=== PATIENT | female | born 1950 | race Caucasian/White ===

== ENCOUNTER 2021-11-03 07:21 | Outpatient (REF) | payer MEDICARE, SELFPAY ==
[2021-11-03 07:37] LABS: MANUAL DIFF FLAG NO
[2021-11-03 08:16] LABS: Basophils Absolute Auto 0.1 X10*3/uL (0.0-0.2); Eosinophils Absolute Auto 0.2 X10*3/uL (0.0-0.4); Eosinophils Percent Auto 2.9 % (0-4); Hematocrit 49.4 % (37.0-47.0); Hemoglobin 16.8 g/dl (12.0-16.0); Imm Gran Abs Auto 0.01 X10*3/uL (0.00-0.03); Imm Gran Pct Auto 0.2 % (0.0-0.4); Lymphocytes Absolute Auto 1.9 X10*3/uL (1.2-4.9); Lymphocytes Percent Auto 31.6 % (20-40); Mean Corpuscular Hemoglobin 31.2 pg (27.0-33.0); Mean Corpuscular Volume 91.8 fL (80.0-98.0); Mean Platelet Volume 12.2 fL (9.4-12.3); Monocytes Absolute Auto 0.6 X10*3/uL (0.1-1.2); Monocytes Percent Auto 9.2 % (2-11); Neutrophils Absolute Auto 3.3 x10*3/uL (2.0-8.3); Neutrophils Percent Auto 55.1 % (45-73); Platelet Count 200 X10*3/uL (160-400); Red Blood Count 5.38 X10*6/uL (4.20-5.50)
[2021-11-03 08:44] LABS: Alanine Aminotransferase 26 U/L (0-31); Albumin Level 4.4 g/dL (3.5-5.0); Alkaline Phosphatase 53 U/L (39-117); Anion Gap 15 (12-20); Aspartate Amino Transferase 30 U/L (5-31); Bilirubin Total 0.9 mg/dL (0.0-1.0); Blood Urea Nitrogen 21 mg/dL (9-16); Calcium 9.9 mg/dL (8.4-10.2); Carbon Dioxide 34 mmol/L (22-29); Chloride 95 mmol/L (96-108); Cholesterol 217 mg/dL; Estimated Glomerular Filt Rate 43; Glucose Random 95 mg/dL (60-115); HDL Cholesterol 60 mg/dL; LDL Cholesterol Calculated 139 mg/dl; Potassium 3.8 mmol/L (3.3-5.1); Sodium 140 mmol/L (135-145); Total Protein 7.4 g/dL (6.5-8.0); Triglycerides 90 mg/dL
[2021-11-03 09:06] LABS: Vitamin D 25-OH Total 21.5 ng/mL (>30)
== END 2021-11-03 07:22 | disposition home or self-care (01) ==
LOC: HO.LAB 07:21
PROVIDERS: PCP Internal Medicine; Visit Provider Internal Medicine
DX: I48.91 Unspecified atrial fibrillation (principal); I12.9 Hypertensive chronic kidney disease with stage 1 through stage 4 chronic kidney disease, or unspecified chronic kidney disease; N18.9 Chronic kidney disease, unspecified; J44.9 Chronic obstructive pulmonary disease, unspecified; I73.9 Peripheral vascular disease, unspecified
CPT/HCPCS: 36415; 80053; 80061; 82306; 85025

== ENCOUNTER 2021-11-09 11:05 | Outpatient (REF) | payer MEDICARE, SELFPAY ==
--- NOTE | ~2021-11-09 | US_ITS ---
EXAMINATION: NONINVASIVE ASSESSMENT OF THE ARTERIES OF BOTH LOWER EXTREMITIES INCLUDING BILATERAL LOWER EXTREMITY DUPLEX. CLINICAL INFORMATION: Smoking history COMPARISON: None TECHNIQUE: duplex Doppler techniques with wave form analysis and measurement of velocities in the common femoral, profunda femoral, superficial femoral, popliteal, tibial and peroneal arteries. The study was performed only at rest. FINDINGS: RIGHT LEG: Common femoral artery: 263 cm/s, Multiphasic Profunda femoris artery: 66 cm/s, Multiphasic Superficial femoral artery (proximal): 61 cm/s, Multiphasic Superficial femoral artery (mid): 156 cm/s, Multiphasic Superficial femoral artery (distal): 116 cm/s, Multiphasic Proximal Popliteal artery: 90 cm/s, Multiphasic Mid posterior tibial artery: 68 cm/s, Multiphasic LEFT LEG: Common femoral artery: 138 cm/s, Multiphasic Profunda femoris artery: 157 cm/s, Multiphasic Superficial femoral artery (proximal): occluded Superficial femoral artery (mid): occluded Superficial femoral artery (distal): 49 cm/s, monophasic Proximal Popliteal artery: 22 cm/s, monophasic Mid posterior tibial artery: 9 cm/s, monophasic US/US arterial duplex LE BI IMPRESSION: Right leg: No hemodynamically significant stenoses. Left leg: Superficial femoral artery is occluded just distal to its origin and is reconstituted in the distal SFA by multiple thigh collaterals.
== END 2021-11-09 11:06 | disposition home or self-care (01) ==
LOC: HO.US 11:05
PROVIDERS: PCP Internal Medicine; Visit Provider Internal Medicine
DX: I73.9 Peripheral vascular disease, unspecified (principal)
CPT/HCPCS: 93925

== ENCOUNTER 2021-11-14 12:32 | Outpatient (REF) | payer MEDICARE, SELFPAY ==
--- NOTE | ~2021-11-14 | MM_ITS ---
EXAMINATION: MM SCREENING DIGITAL BREAST TOMOSYNTHESIS, BILATERAL CLINICAL INFORMATION: Screening. Asymptomatic. Age 71. No prior mammography. No known family history breast cancer. The lifetime risk of breast cancer based on the Tyrer-Cuzick Model is 3%. COMPARISON: None (current study represents initial baseline exam). TECHNIQUE: Digital breast tomosynthesis is performed in both the craniocaudal and mediolateral oblique views along with computer-aided detection (CAD). Synthesized 2D images are generated from the tomosynthesis. FINDINGS: There are scattered areas of fibroglandular density (ACR BI-RADS breast composition Category b). There are no significant masses, abnormal calcifications, or other abnormalities. No architectural abnormality. The axilla and skin contours are unremarkable. MM/MM tomosynthesis screening BI IMPRESSION: No mammographic evidence of malignancy. ASSESSMENT: BI-RADS 1: Negative RECOMMENDATION: Routine annual mammography screening. This patient's information was entered into a reminder system with a target due date for their next mammogram.
--- NOTE | ~2021-11-14 | MM_ITS ---
EXAMINATION: BONE DENSITOMETRY CLINICAL INDICATION: Menopausal. COMPARISON: None (current study represents initial baseline exam). TECHNIQUE: Using a Ping4 DXA System (software version: 13.1) manufactured by [employer], dual-energy x-ray absorptiometry was performed of the lumbar spine and left hip. The images are of good technical quality. Summary results are attached. FINDINGS: AP SPINE L1-L4: BMD 0.803 g/cm2, Z-score -1.4, T-score -3.1, osteoporosis. LEFT FEMUR, NECK: BMD 0.782 g/cm2, Z-score 0.0, T-score -1.8, osteopenia. LEFT FEMUR, TOTAL: BMD 0.889 g/cm2, Z-score 0.7, T-score -0.9, normal. IDENTIFIED RISK FACTORS: Early menopause, history of fracture (adult), secondary osteoporosis, Thiazide, tobacco use (current smoker). HISTORY OF FRACTURE: Ribs. MEDICATIONS: None listed. MM/XR DEXA axial skeleton IMPRESSION: 1. DIAGNOSIS: Osteoporosis based on the lowest T-score value of -3.1 in the lumbar spine applying World Health Organization criteria. 2. 10-YEAR FRACTURE RISK PREDICTION, FRAX: According to the guidelines, FRAX calculation should only be performed on patients in the osteopenia bone density category. Therefore, FRAX was not performed on this patient. 3. Treatment Recommendations: NOF guidelines recommend consideration for treatment in postmenopausal women and men age 50 and older presenting with the following: -A hip or vertebral (clinical or morphometric) fracture. -T-score less than or equal to -2.5 at the femoral neck or spine after appropriate evaluation to exclude secondary causes. -Low bone mass at the hip or spine and a 10-year fracture probability by FRAX of greater than or equal to 3% for hip fracture or greater than or equal to 20% for major osteoporotic fracture based on the [place] adapted WHO algorithm. 4. Other Recommendations: All treatment decisions require clinical judgment and consideration of individual patient factors, including patient preferences, comorbidities, previous drug use, risk factors not captured in the FRAX model (e.g. frailty, falls, vitamin D deficiency, increased bone turnover, interval significant decline in bone density) and possible under or overestimation of fracture risk by FRAX. Additional medical evaluation for secondary cause of low bone mineral density may be appropriate. FUTURE SCAN RECOMMENDATION: People with diagnosed cases of osteoporosis or at high risk for fracture should have regular bone mineral density tests. For patients eligible for Medicare, routine testing is allowed once every 2 years. The testing frequency can be increased to one year for patients who have rapidly progressing disease, those who are receiving or discontinuing medical therapy to restore bone mass, or have additional risk factors.
== END 2021-11-14 12:33 | disposition home or self-care (01) ==
LOC: HO.MAMMO 12:32
PROVIDERS: PCP Internal Medicine; Visit Provider Internal Medicine
DX: Z12.31 Encounter for screening mammogram for malignant neoplasm of breast (principal); Z13.820 Encounter for screening for osteoporosis; Z78.0 Asymptomatic menopausal state
CPT/HCPCS: 77063; 77067; 77080

== ENCOUNTER → 2021-11-29 09:16 | Outpatient (REF) | payer MEDICARE, SELFPAY ==
--- NOTE | 2021-11-29 09:21 | CA_ITS ---
Transthoracic Echocardiogram Patient (Last, First, Middle): Pamela Marr F Gender: Female Date of : 1950 Age: 71 Procedure Date: 11/29/2021 Procedure Type: Transthoracic Echocardiogram Location: OP Height: 167.64 cm Weight: 64.41 kg BSA: 1.73 m2 Heart Rate: 68 bpm BP: 140 / 80 mmHg Associate Professor Of Church Music: SATHISH Referring MD: Jorge Salgado MD Clerk Typist: Magdiel Anderson MD Symptoms: Z01.818 - PRE OP, R06.02 - SOB, R94.31 - ABNORMAL ECG Study Quality: Fair ECG Rhythm: Atrial Fibrillation Conclusions: - 1. Low normal LV systolic function with at least moderate LVH with restrictive filling pattern 2. Severely dilated left atrium 3. Within normal limits cardiac valvular Doppler with mild mitral and calcification 4. Normal RV systolic pressure 5. No gross pericardial effusion Findings Left Ventricle Normal left ventricular cavity size. There is moderately increased left ventricular wall thickness. The left ventricular systolic function is low normal. The visually estimated ejection fraction is between 50-55%. Spectral Doppler is indicative of a restrictive filling pattern. There is severe septal asymmetric hypertrophy. Right Ventricle Normal right ventricular cavity size and systolic function. Atria The left atrium is severely dilated. Interatrial shunt cannot be excluded. The right atrium is moderately dilated. Aortic Valve Normal aortic valve structure and function. There is no aortic valve stenosis. There is no aortic valve regurgitation. Mitral Valve There is mild anterior and severe posterior mitral leaflet thickening. There is mild mitral annular calcification. There is trace mitral valve regurgitation. There is no mitral valve stenosis. Pulmonic Valve The pulmonic valve was not well visualized. Tricuspid Valve Likely normal tricuspid valve structure and function. There is trace tricuspid valve regurgitation. The right ventricular systolic pressure is normal. The right ventricular systolic pressure is 18 mmHg. Normal right atrial pressure. There is no evidence of pulmonary hypertension. Great Vessels All visible segments of the aorta are normal in size. The pulmonary artery was not well visualized. Venous The inferior vena cava is normal in size and collapses greater than 50% with inspiration. Pericardium/Pleural There is no evidence of pericardial effusion. Prior Study Comparison No prior study available for comparison. Measurements 2D Linear Measurements IVSd: 2.25 0.6-0.9/0.6-1.0 cm LVIDd: 4.18 3.9-5.3/4.2-5.9 cm LVIDd Index: 2.42 2.4-3.2/2.2-3.1 cm/m2 LVIDs: 2.06 2.0-3.6 cm LVPWd: 1.51 0.7-1.1 cm LA Diam: 4.40 2.7-3.8/3.0-4.0 cm LAIDs Index: 2.54 1.5-2.3 cm/m2 LV Mass: 444.63 67-162/88-224 g LV Mass Index: 257.01 43-95/49-115 g/m2 LVOT Diam: 1.80 3.0+(-)1.3 cm 2D Systolic Function EF 4C: 35.50 >55% EF 2C: 40.00 >55% Mitral Valve MV Pk E: 0.99 MV PK A: 0.36 MV Decel Time: 204.00 E/A: 2.80 E'Lateral: 8.27 E'Medial: 4.35 E/E' Med: 22.90 E/E' Lat: 12.00 PHT: 60.00 MVA PHT: 3.67 Decel Dixie: 4.87 Aortic Valve AoV Pk Haroon: 1.67 AoV Mn Haroon: 1.06 AoV VTI: 0.32 AoV Pk Grad: 11.00 Aov Mn Grad: 6.00 HAY Cont.VTI: 2.00 LVOT LVOT Pk Haroon: 1.38 LVOT Mn Haroon: 0.88 LVOT VTI: 0.25 LVOT Pk Grad: 8.00 LVOT Mn Grad: 4.00 LVOT Diam: 1.80 LVOT Area: 2.54 Diastolic Function MV Pk E: 0.99 MV Pk A: 0.36 E/A: 2.80 E'Medial: 4.35 E/E' Med: 22.90 E' Laterial: 8.27 E/E' Lat: 12.00 Right Ventricle TAPSE (mm): 13.40 TVS' Haroon: 8.81 Tricuspid Valve TR Pk Haroon: 1.95 TR Pk Grad: 15.00 RA Press: 3.00 RVSP: 18.00 Great Vessels Aorta Sinus of Valsalva: 3.40 2.0-3.5 cm Ao Asc: 3.00 2.1-3.4 cm Updated in Other Vendor System with Status of Final Magdiel Anderson MD electronically signed on 11/30/2021 12:56:19 PM with status of Final
== END ==
LOC: HO.CARD 09:16
PROVIDERS: Visit Provider Internal Medicine
DX: I50.9 Heart failure, unspecified (principal)
CPT/HCPCS: 93306

== ENCOUNTER 2022-01-16 14:08 | Outpatient (REF) | payer MEDICARE, SELFPAY ==
[2022-01-16 15:08] LABS: Anion Gap 17 (12-20); Blood Urea Nitrogen 22 mg/dL (9-16); Calcium 10.3 mg/dL (8.4-10.2); Carbon Dioxide 29 mmol/L (22-29); Chloride 97 mmol/L (96-108); Estimated Glomerular Filt Rate 46; Glucose Random 103 mg/dL (60-115); Potassium 3.3 mmol/L (3.3-5.1); Sodium 140 mmol/L (135-145)
== END 2022-01-16 14:09 | disposition home or self-care (01) ==
LOC: HO.LAB 14:08
PROVIDERS: PCP Internal Medicine; Referring Provider Internal Medicine; Visit Provider Radiology Vascular & Interventional Radiology
DX: I48.91 Unspecified atrial fibrillation (principal); I12.9 Hypertensive chronic kidney disease with stage 1 through stage 4 chronic kidney disease, or unspecified chronic kidney disease; N18.9 Chronic kidney disease, unspecified; J44.9 Chronic obstructive pulmonary disease, unspecified; R79.89 Other specified abnormal findings of blood chemistry; R94.4 Abnormal results of kidney function studies
CPT/HCPCS: 36415; 80048

== ENCOUNTER 2022-01-29 15:45 | Outpatient (REF) | payer MEDICARE, SELFPAY ==
--- NOTE | ~2022-01-29 | US_ITS ---
EXAMINATION: US VENOUS ULTRASOUND WITH DOPPLER LOWER EXTREMITY, LEFT CLINICAL INFORMATION: Left leg edema. COMPARISON: None TECHNIQUE: Ultrasound of the deep veins is performed from the hip to the calf with compression sonography and color and pulse Doppler assessment. Spectral analysis with color-flow imaging is performed. FINDINGS: There is normal venous compression and respiratory variation and augmented flow. The visualized common femoral vein, superficial femoral vein, profunda femoral vein, popliteal vein, and the trifurcation region shows no evidence of deep venous thrombosis. There is no significant popliteal fossa cyst. There is a small volume joint effusion at the left medial knee. If the patient's symptoms persist, followup ultrasound in 5 days 7 days might be of value to exclude proximal propagation from a non-visualized calf vein. US/US venous duplex LE IMPRESSION: No DVT demonstrated in the left lower extremity.
== END 2022-01-29 15:46 | disposition home or self-care (01) ==
LOC: HO.US 15:45
PROVIDERS: PCP Internal Medicine; Visit Provider Internal Medicine
DX: R60.0 Localized edema (principal)
CPT/HCPCS: 93971

== ENCOUNTER 2022-09-10 07:04 | Outpatient (REF) | payer MEDICARE, SELFPAY ==
[2022-09-10 08:10] LABS: Alanine Aminotransferase 19 U/L (0-31); Albumin Level 4.2 g/dL (3.5-5.0); Alkaline Phosphatase 45 U/L (39-117); Anion Gap 13 (12-20); Aspartate Amino Transferase 25 U/L (5-31); Blood Urea Nitrogen 16 mg/dL (9-16); Carbon Dioxide 32 mmol/L (22-29); Chloride 97 mmol/L (96-108); Cholesterol 202 mg/dL; Estimated Glomerular Filt Rate 48; Glucose Fasting 95 mg/dL (60-99); HDL Cholesterol 64 mg/dL; LDL Cholesterol Calculated 121 mg/dl; Potassium 3.4 mmol/L (3.3-5.1); Sodium 139 mmol/L (135-145); Total Protein 7.3 g/dL (6.5-8.0); Triglycerides 88 mg/dL
== END 2022-09-10 07:05 | disposition home or self-care (01) ==
LOC: HO.LAB 07:04
PROVIDERS: PCP Internal Medicine; Visit Provider Internal Medicine
DX: I48.0 Paroxysmal atrial fibrillation (principal); E78.00 Pure hypercholesterolemia, unspecified; I12.9 Hypertensive chronic kidney disease with stage 1 through stage 4 chronic kidney disease, or unspecified chronic kidney disease; N18.9 Chronic kidney disease, unspecified
CPT/HCPCS: 36415; 80053; 80061

== ENCOUNTER 2022-10-25 09:16 | Outpatient (REF) | payer MEDICARE, SELFPAY ==
[2022-10-25 11:34] LABS: Anion Gap 15 (12-20); Blood Urea Nitrogen 13 mg/dL (9-16); Carbon Dioxide 27 mmol/L (22-29); Chloride 101 mmol/L (96-108); Estimated Glomerular Filt Rate > 60; Glucose Random 81 mg/dL (60-115); Potassium 3.5 mmol/L (3.3-5.1); Sodium 139 mmol/L (135-145)
== END 2022-10-25 09:17 | disposition home or self-care (01) ==
LOC: HO.LAB 09:16
PROVIDERS: PCP Internal Medicine; Visit Provider Internal Medicine
DX: I12.9 Hypertensive chronic kidney disease with stage 1 through stage 4 chronic kidney disease, or unspecified chronic kidney disease (principal); N18.9 Chronic kidney disease, unspecified
CPT/HCPCS: 36415; 80048

== ENCOUNTER 2023-03-25 11:01 | Outpatient (REF) | payer MEDICARE, SELFPAY ==
[2023-03-25 11:20] LABS: MANUAL DIFF FLAG NO
[2023-03-25 11:51] LABS: Basophils Absolute Auto 0.1 X10*3/uL (0.0-0.2); Basophils Percent Auto 0.7 % (0-2); Eosinophils Absolute Auto 0.1 X10*3/uL (0.0-0.4); Hematocrit 50.6 % (37.0-47.0); Hemoglobin 16.9 g/dl (12.0-16.0); Imm Gran Abs Auto 0.02 X10*3/uL (0.00-0.03); Imm Gran Pct Auto 0.3 % (0.0-0.4); Lymphocytes Absolute Auto 1.3 X10*3/uL (1.2-4.9); Lymphocytes Percent Auto 19.3 % (20-40); Mean Corpuscular HGB Conc 33.4 g/dl (31.0-35.0); Mean Corpuscular Hemoglobin 31.3 pg (27.0-33.0); Mean Corpuscular Volume 93.7 fL (80.0-98.0); Mean Platelet Volume 11.3 fL (9.4-12.3); Monocytes Absolute Auto 0.4 X10*3/uL (0.1-1.2); Monocytes Percent Auto 6.1 % (2-11); Neutrophils Percent Auto 72.6 % (45-73); Platelet Count 197 X10*3/uL (160-400); Red Cell Distribution Width 14.1 % (11.0-16.0); White Blood Count 6.8 X10*3/uL (4.8-10.8)
[2023-03-25 13:01] LABS: Alanine Aminotransferase 22 U/L (0-31); Albumin Level 4.3 g/dL (3.5-5.0); Alkaline Phosphatase 50 U/L (39-117); Anion Gap 11 (12-20); Aspartate Amino Transferase 31 U/L (5-31); Bilirubin Total 0.8 mg/dL (0.0-1.0); Blood Urea Nitrogen 17 mg/dL (9-16); Calcium 9.8 mg/dL (8.4-10.2); Carbon Dioxide 32 mmol/L (22-29); Chloride 98 mmol/L (96-108); Estimated Glomerular Filt Rate 49; Glucose Random 97 mg/dL (60-115); Potassium 3.7 mmol/L (3.3-5.1); Sodium 137 mmol/L (135-145); Total Protein 7.7 g/dL (6.5-8.0)
== END 2023-03-25 11:02 | disposition home or self-care (01) ==
LOC: HO.LAB 11:01
PROVIDERS: PCP Internal Medicine; Visit Provider Internal Medicine
DX: I48.91 Unspecified atrial fibrillation (principal); J44.9 Chronic obstructive pulmonary disease, unspecified; I10 Essential (primary) hypertension; I73.9 Peripheral vascular disease, unspecified; N18.9 Chronic kidney disease, unspecified
CPT/HCPCS: 36415; 80053; 82378; 85025

== ENCOUNTER 2024-04-22 12:50 | Outpatient (REF) | payer MEDICARE, SELFPAY ==
[2024-04-22 13:56] LABS: Anion Gap 12 (12-20); Blood Urea Nitrogen 15 mg/dL (9-16); Calcium 10.2 mg/dL (8.4-10.2); Carbon Dioxide 34 mmol/L (22-29); Chloride 96 mmol/L (96-108); Estimated Glomerular Filt Rate 55; Glucose Random 72 mg/dL (60-115); Potassium 3.8 mmol/L (3.3-5.1); Sodium 138 mmol/L (135-145)
--- OUTSIDE RECORDS SUMMARY | 2024-04-22 15:19 | XMS_ITS ---
Author Organization [facility] Address [address] [place] [address] Care Team Providers Care Rn Unit Manager Name Role Phone Jorge Salgado MD Primary Care Provider Parag Caraballo Unavailable [phone] Allergies No Known Allergies REASON FOR VISIT At Risk Footcare, Painful Nail(s) aggrevated by shoes and causing difficulty standing/walking., Wart(s) Medications Medication SIG (Take, Route, Frequency, Duration) Notes Start Date End Date Status Lisinopril Not-Takin g Vicks Active Multivitamin only sometimes Ac tive Ammonium Lactate 12 % 1 application to affected area Externally Twice a day for 30 days Not-Taking zzzCompression Stockings 20-30mm Hg . . . for . Not-Taking Aspir-81 Active amLODIPine Besylate 5 MG TAKE 1 TABLET B Y MOUTH EVERY DAY Oral twice a day Active hydroCHLOROthiazide 25 MG 1 tablet Orall y Once a day Active Eliquis 5 MG 1 tablet Oral Twice a day Active Carvedilol 3.125 MG 1 tablet with food Oral Twice a day Active Social History Tobacco Use: Social History Observation Description Date Details (start date - stop date) Current Smoker 02/25/1964 - NA Tobacco Use/Smoking Question Answer Notes Are you a: current smoker When did you start smoking? 02/25/1964 How often do you smoke cigarettes? every day How many cigarettes a day do you smoke? 21-30 How soon after you wake up d o you smoke your first cigarette? 6-30 minutes Are you interested in quitting? Thinking about q uitting Additional Findings: Tobacco User Heavy cigarett e smoker (20-39 cigs/day) Alcohol Screen Question Answer Notes Did you have a drink containing alcohol in the p ast year? No Points 0 Interpretation Negative Tobacco use other than smoking: Question Answer Notes Are you an other tobacco user? No Vital Signs Height 5ft 6in in 03/09/2024 Weight 145 lbs 03/09/2024 BMI 23.4 kg/m2 03/09/2024 Blood pressure systolic 120 mm Hg 03/09/19 25 Blood pressure diastolic 70 mm Hg 025 Procedures Procedure Date Ordered Date Performed Result Body Sit e 43763-MINDGZZ NAIL, 6 OR MORE 03/09/2024 N/A 12110-Uvlc Destruction, -03/09/2024 N/A 39232-STXI SKIN LESIONS, OVER 4 03/09/2024 N/A Encounters Encounter Location Date Provider Diagnosis [facility] [address] [place] [address] 03/09/2024 Parag Kirk Atherosclerosis of [place] artery of both lower extremities, with unspecified presence of clinical manifestation I70.203 ; Plantar wart B07.0 ; Tinea unguium B35.1 ; Pain in right toe(s) M79.674 ; Pain in left toe(s) M79.675 and Pain in right foot M79.671 Assessments Encounter Date Diagnosis (ICD Code) Assessment Notes Treatment Notes Treatment Clinical Notes Section Notes 03/09/2024 Atherosclerosis of [place] artery of both lower extremities, with unspecified presence of clinical manifestation (ICD-10 - I70.203) 03/09/2024 Plantar wart (ICD-10 - B07.0) 03/09/2024 Tinea unguium (ICD-10 - B35.1) 03/09/2024 Pain in right toe(s) (ICD-10 - M79.674) 03/09/2024 Pain in left toe(s) (ICD-10 - M79.675) 03/09/2024 Pain in right foot (ICD-10 - M79.671) Plan Of Treatment Pending Test Test Name Order Date 13430-TPSOBWO NAIL, 6 OR MORE 03/09/2024 05217-Ytbz Destruction, -03/09/2024 19056-FFZY SKIN LESIONS, OVER 4 03/09/19 25 Next Appt Details Follow Up: prn, Reason: Provider Name:Parag Kirk , 06/08/2024 11:30:00 AM, [address] [place], [address], Procedure Notes * Category Sub-Category Detail Notes Wart Treatment Procedure Verruca, as desc ribed in exam, were debrided to pin-point bleeding margins with sterile 15 surgical blade, silver nitrate chemocautery applied, recomm. immune-boosting meds such as zinc, recomm. follow up with topical chemosurgical agents, Pt defers any other forms of tx - 03152 Debride Nail 6-10 Nail debridement Due to the cl inical pathology outlined in the exam findings, performance of this nail treatment is medically necessary as its management by an unskilled/untrained nonprofessional would put this patients foot and overall health at risk. Therefore, debridement to affected nail(s), as described in exam ( TA, T1, T3, T4, T6, T8, T9), was performed exclusively by the physician of record to reduce/remove overall nail length, girth, thickness, subungual debris, and necrotic tissue, by manual and/or electrical means through the use of a nail nipper and/or dremel-type swing frame grinder operator, to a more viable healthy nail plate or bed tissue 6-10 nails in total. Silver nitrate was used for any petechial bleeding as necessary. Definitive antifungal treatment options, both pharmaceutical and surgical, have been reviewed and discussed with the patient. The patient solely prefers the use of intermittent/as needed professional debridement services for their nail condition and understands the need for additional periodic treatments to maintain effectiveness in symptomatic relief - 00420 Keratoma Treatment Parring or Cutting o f Benign Hyperkeratotic Lesion(s) (-57) More than 4 Lesions - Due to the at risk nature of the patients medical condition as documented in the exam findings, performance of this keratoderma treatment is medically necessary as its management by an unskilled/untrained nonprofessional would put this patients foot and overall health at risk. Therefore, the benign hyperkeratotic lesions, ( 8) in total, locations as stated and described in the exam ( SUB MTH (s), 1, B/L , SUB MTH (s), 2, B/L ,Plantar, Heel(s), B/L), were pared, and/or cut utilizing a sterile 15 blade, tissue nippers, and/or power dremel instrumentation by the physician of record - 74719, Q8 Progress Notes * Pamela QUINONEZ FDOB:1950 (73 yo F)Acc No.[id number]:03/09/2024 Progress Note Patient:?Pamela QUINONEZ Provider:?Parag Kirk DPM :1950???Age:73 Y???Sex:Female D ate:03/09/2024 Address:[address] [place] [address] Pcp:Jorge Salgado MD Subjective: * Chief Complaints: * ???At Risk FootcarePainful N ail(s) aggrevated by shoes and causing difficulty standing/walking.Wart(s) * HPI: ???At Risk footcare:?Pt States Last PCP Visit:?Date?11/27/2023 * ROS:?General/Constitutional:?Nausea?denies.?Vomiting?denies.?Hunger Thirst?denies.?Loss appetite?denies.?Chills?denies.?Fatigue?admits.?Fever?denies.?Night Sweats?denies.?Unexplained weight loss?denies.?Unexplained weight gain?denies.?HEENTM:?Dentures?denies.?Dizziness?denies.?Glasses/contacts?admits.?Retinopathy?de nies.?Blurred/double vision?denies.?TMJ?denies.?Discharge/drainage?denies.?Implants?denies.?Sore throat?denies.?Dental implants?denies.?Hard of hearing ?denies.?Difficulty chewing/swallowing/speaking?denies.?Nose bleeds?denies.?Sore mouth?denies.?Respiratory:?On Oxygen?denies.?Pneumonia/pleurisy?denies.?Bronchitis?denies.?Emphysema?denies.?C oughing?admits.?Cough blood?denies.?Shortness of breath?admits.?Wheezing?denies.?Cardiovascular:?Pacemaker?denies.?MVP?denies.?WPW?denies.?CHF?denies.?Heart attack?denies.?Septal defect?denies.?Rapid beat?denies.?Chest pain ?denies.?Atrial Fib.?denies.?Murmur/Palpitations?denies.?Gastrointestinal:?Hemorrhoids?denies.?Stomach/Abdominal pain?denies.?Dark blood stool?denies.?Irritable bowel ?denies.?Constipation?denies.?Diarrhea?denies.?Hematology:?Swelling?denies.?Clots?denies.?Varicose Veins?admits.?Bruising?admits, on anticoagulants.?Bleeding problem?admits, on anticoagulants.?Genitourinary:?Blood urine?denies.?Frequent/Painfu/urination/bladder control?denies.?Kidney stones?denies.?Infection (UTI)?denies.?Nephropathy?denies.?sex trans dis (STD)?denies.?Prostate?denies.?Musculoskeletal:?Hammertoes?admits.?Bunions?admits.?Back Pain?denies.?Muscle Cramps/ Resting?denies.?Muscle cramps / walking?denies.?Generalized aches and pains?denies.?Weakness?admits.?Integ.:?Dupree?denies.?Scars?denies.?Corns/calluses?admits.?Ingrown nails?admits.?Painful nails?admits.?Open Sores?denies.?Rashes?denies.?Neurologic:?Difficulty sleeping?denies.?Brain disorder?denies.?Numbness?denies.?Balance trouble?denies.?Confusion?denies.?Fainting/blackouts?denies.?Tingling?denies.?Tr emors?denies.? * Medical History:? * Surgical History:?Stent Oumou ross g 01/2022 * Hospitalization/Major Diagno stic Procedure:?[facility] ER sent by PCP for cardiac Rehab Afib chaning BP 2 days 10/20- * Family History:?Mother: dece ased, diagnosed with Unspecified essential hypertension, Family history of arthritis.?Father: , diagnosed with Other malignant neoplasm of unspecified site.? * Social History:?Tobacco Use:?Tobacco Use/Smoking?Are you a:?current smoker ?When did you start smoking??02/25/1964 ?How often do you smoke cigarettes??every day ?How many cigarettes a day do you smoke??21-30 ?How soon after you wake up do you smoke your first cigarette??6-30 minutes ?Are you interested in quitting??Thinking about quitting ?Additional Findings: Tobacco User?Heavy cigarette smoker (20-39 cigs/day) ?Tobacco use other than smoking?Are you an other tobacco user??No ???Drugs/Alcohol:?Drugs?Have you used drugs other than those for medical reasons in the past 12 months??No ?Alcohol Screen?Did you have a drink containing alcohol in the past year??No ?Points?0 ?Interpretation?Negative ???Miscellaneous:?Caffeine: yes, 3-4 cups per day. ?Children: no, none. ?Exercise: no. ?Marital status: single. 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 * Medications:?TakingamLODIPin e Besylate 5 MG Tablet TAKE 1 TABLET BY MOUTH EVERY DAY Oral twice a day -81 Carvedilol 3.125 MG Tablet 1 tablet with food Oral Twice a day Eliquis 5 MG Tablet 1 tablet Oral Twice a day hydroCHLOROthiazide 25 MG Tablet 1 tablet Orally Once a day Multivitamin , Notes to Pharmacist: only sometimesVicks Taking amLODIPine Besylate 5 MG Tablet TAKE 1 TABLET BY MOUTH EVERY DAY Oral twice a day Taking Aspir-81 Taking Carvedilol 3.125 MG Tablet 1 tablet with food Oral Twice a day Taking Eliquis 5 MG Tablet 1 tablet Oral Twice a day Taking hydroCHLOROthiazide 25 MG Tablet 1 tablet Orally Once a day Taking Multivitamin , Notes to Pharmacist: only sometimesTaking Vicks Not-Taking/PRNzzzCompression Stockings 20-30mm Hg 1 pair closed toe- knee high . . . Ammonium Lactate 12 % Cream 1 application to affected area Externally Twice a day Lisinopril Medication List reviewed and reconciled with the patientNot-Taking/PRN zzzCompression Stockings 20-30mm Hg 1 pair closed toe- knee high . . . Not-Taking/PRN Ammonium Lactate 12 % Cream 1 application to affected area Externally Twice a day Not-Taking/PRN Lisinopril Medication List reviewed and reconciled with the patient * Allergies:?N.K.D.A.yes[Aller gies Verified] Objective: * Vitals:?Ht:5ft 6in, Wt:145, BMI:23.4, Shoe size:10W, BP:120/70mm Hg, Ht-cm: 167.64 cm, Wt-k.77 kg. * Examination: ???Vascular: ?DP PULSES (B):? 0/4, B/L.?PT PULSES (B):? 0/4, B/L.?CAPILLARY FILL TIME:? delayed, all digits, B/L.?TROPHIC CONDITION-TEXTURE/ELASTICITY/TURGOR/HAIR GROWTH (B):? decreased, fragile, thin, shiny skin, with sparse to absent hair growth, B/L.?TEMPERTURE GRADIENT (C):? decreased, cool to cool, proximal to distal, B/L.?PIGMENTATION:? mottled, B/L.?EDEMA (C):?absent, B/L.?VARICOSITIES:? present, moderate, nonpainful, B/L.?NERY'S SIGN:?absent , B/L.?PALPABLE CORDS:?absent , B/L.?Nails: ?NAILS are:?Elongated, overgrown, dystrophic, lytic, greater than 3mm thick, discolored and friable with crumbly malodorous subungual debris, with pain on palpation, TA, T1, T3, T4, T6, T8, T9, all other nails not described with characteristics as possessing mycosis are elongated, overgrown, and dystrophic.?Dermatologic: ?SKIN FINDINGS:? Skin exam reveals Keratotic lesion(s) located at, SUB MTH (s), 1, B/L , SUB MTH (s), 2, B/L ,Plantar, Heel(s), B/L.?VERRUCA:?STILL, Reveals a Single , multi-loculated , mosaically patterned, round, raised, flat-topped, petechial bleeding papulae(s), with cauliflower appearance and interrruption of skin lines, pain to lateral compression, and size estimated at 6-7mm diameter, plantar Forefoot, RIGHT.? Assessment: * Assessment: 1.?Plantar wart - B07.0 (Brenna phuong)???Specify :RIGHT???2.?Atherosclerosis of [place] artery of both lower extremities, with unspecified presence of clinical manifestation - I70.203???3.?Tinea unguium - B35.1???4.?Pain in right toe(s) - M79.674???5.?Pain in left toe(s) - M79.675???6.?Pain in right foot - M79.671??? Plan: * Treatment: 2.?Atherosclerosis of [place] artery of both lower extremities, with unspecified presence of clinical manifestation?Procedure: 94631-BPXD SKIN LESIONS, OVER 4 3.?Tinea unguium?Procedure: 59917-IOIAMOK NAIL, 6 OR MORE * Procedures:?Debride Nail 6-10:?Nail debridement?Due to the clinical pathology outlined in the exam findings, performance of this nail treatment is medically necessary as its management by an unskilled/untrained nonprofessional would put this patients foot and overall health at risk. Therefore, debridement to affected nail(s), as described in exam (?TA,?T1,?T3,?T4,?T6,?T8,?T9), was performed exclusively by the physician of record to reduce/remove overall nail length, girth, thickness, subungual debris, and necrotic tissue, by manual and/or electrical means through the use of a nail nipper and/or dremel-type swing frame grinder operator, to a more viable healthy nail plate or bed tissue 6- 10 nails in total. Silver nitrate was used for any petechial bleeding as necessary. Definitive antifungal treatment options, both pharmaceutical and surgical, have been reviewed and discussed with the patient. The patient solely prefers the use of intermittent/as needed professional debridement services for their nail condition and understands the need for additional periodic treatments to maintain effectiveness in symptomatic relief - 89421.?Keratoma Treatment:?Parring or Cutting of Benign Hyperkeratotic Lesion(s)?(-57) More than 4 Lesions - Due to the at risk nature of the patients medical condition as documented in the exam findings, performance of this keratoderma treatment is medically necessary as its management by an unskilled/untrained nonprofessional would put this patients foot and overall health at risk. Therefore, the benign hyperkeratotic lesions, ( 8) in total, locations as stated and described in the exam (?SUB MTH (s),?1,?B/L?,?SUB MTH (s),?2,?B/L?,Plantar,?Heel(s),?B/L), were pared, and/or cut utilizing a sterile 15 blade, tissue nippers, and/or power dremel instrumentation by the physician of record - 11373, Q8.?Wart Treatment:?Procedure?Verruca, as described in exam, were debrided to pin-point bleeding margins with sterile 15 surgical blade, silver nitrate chemocautery applied, recomm. immune-boosting meds such as zinc, recomm. follow up with topical chemosurgical agents, Pt defers any other forms of tx - 72573.? * Procedure Codes:?90776 DEBRI DE NAIL, 6 OR MORE, Modifiers: XS 08527 Wart Destruction, 1-14, Modifiers: XS 45478 TRIM SKIN LESIONS, OVER 4, Modifiers: XS , Q8 * Follow Up:?prn * Images: * Sign off status: Completed true * Provider:?Parag Kirk DPM Date:?2024 Generated for Marie em/Dimitri/Mesfin on:?04/22/2024 03:19 PM EST History and Physical Notes * HPI (History of Present Illness) Category Sub-Category Detail Notes Category Not es At Risk footcare Pt States Last PCP Visit: Date: Examination Category Sub-Category Detail Notes Category Not es Dermatologic SKIN FINDINGS: Skin exam reveal s Keratotic lesion(s) located at, SUB MTH (s), 1, B/L , SUB MTH (s), 2, B/L ,Plantar, Heel(s), B/L VERRUCA: STILL, Reveals a Sin gle , multi-loculated , mosaically patterned, round, raised, flat-topped, petechial bleeding papulae(s), with cauliflower appearance and interrruption of skin lines, pain to lateral compression, and size estimated at 6-7mm diameter, plantar Forefoot, RIGHT Vascular DP PULSES (B): 0/4, B/L PT PULSES (B): 0/4, B/L CAPILLARY FILL TIME: delayed, all digits , B/L TEMPERTURE GRADIENT (C): decreased, cool to cool, proximal to distal, B/L TROPHIC CONDITION-TEXTURE/ELASTICITY/TURGOR/HAIR GROWTH (B): decreased, fragile, thin, shiny skin, wi th sparse to absent hair growth, B/L EDEMA (C): absent, B/L VARICOSITIES: present, moderate, n onpainful, B/L NERY'S SIGN: absent , B/L PALPABLE CORDS: absent , B/L PIGMENTATION: mottled, B/L Nails NAILS are: Elongated, overg rown, dystrophic, lytic, greater than 3mm thick, discolored and friable with crumbly malodorous subungual debris, with pain on palpation, TA, T1, T3, T4, T6, T8, T9, all other nails not described with characteristics as possessing mycosis are elongated, overgrown, and dystrophic
--- OUTSIDE RECORDS SUMMARY | 2024-04-22 15:19 | XMS_ITS ---
Author Organization [facility] Address [address] [facility] [place] [address] Care Team Providers Care Forms Examiner Name Role Phone Jorge Salgado MD Primary Care Provider Parag Caraballo Unavailable [phone] Allergies No Known Allergies REASON FOR VISIT Foot pain Medications Medication SIG (Take, Route, Frequency, Duration) Notes Start Date End Date Status Ammonium Lactate 12 % 1 application to affected area Externally Twice a day for 30 days Not-Taking zzzCompression Stockings 20-30mm Hg . . . for . Not-Taking Lisinopril Not-Takin g Cabrera Active Multivitamin only sometimes Ac tive amLODIPine Besylate 5 MG TAKE 1 TABLET B Y MOUTH EVERY DAY Oral twice a day Active Carvedilol 3.125 MG 1 tablet with food Oral Twice a day Active Aspir-81 Active hydroCHLOROthiazide 25 MG 1 tablet Orall y Once a day Active Eliquis 5 MG 1 tablet Oral Twice a day Active Social History [...] No Vital Signs Height 5ft 6in in 11/26/2023 Weight 145 lbs 11/26/2023 BMI 23.4 kg/m2 11/26/2023 Encounters Encounter Location Date Provider Diagnosis [facility] [place] [address] [place] [address] 11/26/2023 Parag Kirk Left foot pain M79.6 72 ; Sprain of left foot, initial encounter S93.602A and Atherosclerosis of [place] artery of both lower extremities, with unspecified presence of clinical manifestation I70.203 Assessments Encounter Date Diagnosis (ICD Code) Assessment Notes Treatment Notes Treatment Clinical Notes Section Notes 11/26/2023 Left foot pain (ICD-10 - M79.672) 11/26/2023 Sprain of left foot, initial encounter (ICD-10 - S93.602A) 11/26/2023 Atherosclerosis of [place] artery of both lower extremities, with unspecified presence of clinical manifestation (ICD-10 - I70.203) Plan Of Treatment Pending Test Test Name Order Date X ray : Foot, left 3V 11/26/2023 Next Appt Details Follow Up: prn, Reason: Provider Name:Parag Kirk , 06/08/2024 11:30:00 AM, [address] [place] [address], [phone], Progress Notes * Pamela QUINONEZ FDOB:1950 (73 yo F)Acc No.[id number]:11/26/2023 Progress Note Patient:?Pamela QUINONEZ Provider:?Parag Kirk DPM :1950???Age:73 Y???Sex:Female D ate:11/26/2023 Address:[address] [place], [place] [id number] Pcp:Jorge Salgado MD Subjective: * Chief Complaints: * ???Foot pain * HPI: ???Foot Pain:?Nature:?aching, bruising , swelling , tenderness , throbbing.?Location:?LEFT.?Duration:?since DOI [ yesterday].?Onset:?states trauma ( tripped in garden).?Aggravated:?any pressure , standing , walking.?Treatments:?rest/alter normal daily activity , ice , medication -?tylenol due to blood thinner.? * ROS:?General/Constitutional:?Nausea?denies.?Vomiting?denies.?Hunger Thirst?denies.?Loss appetite?denies.?Chills?denies.?Fatigue?admits.?Fever?denies.?Night Sweats?denies.?Unexplained weight loss?denies.?Unexplained [...] emors?denies.? * Medical History:? * Surgical History:?Stent L le g 01/2022 * Hospitalization/Major Diagno stic Procedure:[facility] Re[facility] Afib chaning BP 2 days 10/20- * Family History:?Mother: dece ased, diagnosed with Family history of arthritis, Unspecified essential hypertension.?Father: , diagnosed with Other malignant neoplasm of [...] MOUTH EVERY DAY Oral twice a day Aspir-81 Carvedilol 3.125 MG Tablet 1 tablet with [...] patient * Allergies:?N.K.D.A.yes[Aller gies Verified] Objective: * Vitals:?Ht: 5ft 6in, Wt:145, BMI:23.4, Shoe size: 10W, Ht-cm: 167.64 cm, Wt-k.77 kg. * Examination: ???Orthopedic: ?MUSCLE STRENGTH:?5/5 all groups in a symmetrical fashion, B/L.?GAIT ABNORMALITY:?antalgic.?FOOT MORPHOLOGY:?Pain on palpation dorso-lateral aspect, Left foot and plantar medial arch.?X-Rays - IMAGING REPORT: ?Clinical Indication(s):?Evaluate for Fracture.?Views:?3 views of Foot , AP , LAT , LO , LEFT.?Findings:?normal bone and soft tissue density consistent for patients age and sex.?Fracture:?Negative fractures identified.?Vascular: ?DP PULSES (B):? 0/4, B/L.?PT PULSES (B):? 0/4, B/L.?CAPILLARY FILL TIME:? delayed, all digits, B/L.?TROPHIC CONDITION-TEXTURE/ELASTICITY/TURGOR/HAIR GROWTH (B):? decreased, fragile, thin, shiny skin, with sparse to absent hair growth, B/L.?TEMPERTURE GRADIENT (C):? decreased, cool to cool, proximal to distal, B/L.?PIGMENTATION:? mottled, B/L.?EDEMA (C):?absent, B/L.?VARICOSITIES:? present, moderate, nonpainful, B/L.?NERY'S SIGN:?absent , B/L.?PALPABLE CORDS:?absent , B/L.?Dermatologic: ?SKIN FINDINGS:? Skin exam reveals Keratotic lesion(s) located at, SUB MTH (s), 1, B/L , SUB MTH (s), 2, B/L , Heel(s), B/L.?VERRUCA:?STILL, Reveals a Single , multi-loculated , mosaically patterned, round, raised, flat-topped, petechial bleeding papulae(s), with cauliflower appearance and interrruption of skin lines, pain to lateral compression, and size estimated at 6-7mm diameter, plantar Forefoot, RIGHT.?Neurological: ?SENSORY:?Neurological exam reveals intact sensorium, pain sensation normal, vibration sensation intact, pinprick sensation is normal in the lower extremities, Pt denies, anesthesia, burning, paresthesia, tingling, B/L.?General Examination: ?GENERAL APPEARANCE:?Reveals a pleasant, alert, well nourished, well- developed, well hydrated individual, who demonstrates proper attention to hygiene/body habitus, and is in no acute distress, Pt serves as own historian for office visit today.?ORIENTED:?person, place, and time.? Assessment: * Assessment: 1.?Left foot pain - M79.672? ??2.?Sprain of left foot, initial encounter - S93.602A???Specify :Acute problem, Complicated w/ Multiple Tx Options(4),Dx New problem, Prognosis Uncertain (4)???3.?Atherosclerosis of [place] artery of both lower extremities, with unspecified presence of clinical manifestation - I70.203??? Plan: * Treatment: * Procedure Codes:?09651 X-RAY EXAM OF LEFT FOOT 3V, Modifiers: 26 , LT * Preventive Medicine:? ??Counseling:?Tobacco use:?Type of Tobacco Use Cessation Counseling provided?Smoking effects education ?Patient counseled on the dangers of smoking and urged to quit:?11/26/2023 ?Discussion:?-14: Office or other outpatient visit for the evaluation and management of an established patient, which required a medically appropriate history and/or examination and MODERATE level of DECISION MAKING for: 1 OR MORE CHRONIC PROBLEM(S) THATS WORSENING, 2 STABLE CHRONIC PROBLEMS, A NEWLY DIAGNOSED PROBLEM WITH UNCERTAIN PROGNOSIS, AN ACUTE COMPLICATED INJURY WITH MULTIPLE TREATMENT OPTIONS, OR AN ACUTE PROBLEM WITH ACCOMPANYING SYSTEMIC SYMPTOMS, THAT POSE(S) A MODERATE RISK OF MORBIDITY. THIS CONDITION MAY ALSO INCLUDE RX DRUG MANAGEMENT, OR A DECISON FOR MINOR SURGERY. The visit on the day of the encounter encompassed interpreting the data and educating the patient as to the nature of their condition, treatment options available according to their individual PMH, meds, allergies, and overall health/living conditions, as well as any potential risks or complications that may occur from a failure to adhere to, and participate in, the recommended course of therapy. The discussion included a complete verbal, and/or written explanation of the examination results, any x-rays taken, the proposed diagnosis, and outline of the treatment plan. A schedule for future care needs was also explained. The patient verbalized an understanding of the instructions at this time and agreed to be an active participant in their treatment. If the patient should think of any questions or concerns after the visit, I have encouraged the patient to call the office.?P.R.I.C.E.:?The patient was counseled on the use of P.R.I.C.E. and NSAIDS (if well tolerated) to aid in the recovery from their painful condition, Pt deferrd Pneumatic Cast boot, Ankle bracing, or crutches.? ??Screening/Special Tests:?Fall Risk?Screening:?No falls in the past year ?FALLS: Screening for Future Fall Risk?Have you had any falls with injury in the past year??No * Follow Up:?prn * Images: * Sign off status: Completed true * Provider:?Parag Kirk DPM Date:?2023 Generated for Marie em/Dimitri/Mesfin on:?04/22/2024 03:18 PM EST History and Physical Notes * HPI (History of Present Illness) Category Sub-Category Detail Notes Category Not es Foot Pain Nature: aching, bruising , swelling , tenderness , throbbing Location: LEFT Duration: since DOI [ yesterda y] Onset: states trauma ( trip ped in garden) Aggravated: any pressure , stand ing , walking Treatments: rest/alter normal da gabrielle activity , ice , medication - tylenol due to blood thinner Examination Category Sub-Category Detail Notes Category Not es Neurological SENSORY: Neurological exa m reveals intact sensorium, pain sensation normal, vibration sensation intact, pinprick sensation is normal in the lower extremities, Pt denies, anesthesia, burning, paresthesia, tingling, B/L Dermatologic SKIN FINDINGS: Skin exam reveal s Keratotic lesion(s) located at, SUB MTH (s), 1, B/L , SUB MTH (s), 2, B/L , Heel(s), B/L VERRUCA: STILL, Reveals a Sin gle , multi-loculated , mosaically patterned, round, raised, flat-topped, petechial bleeding papulae(s), with cauliflower appearance and interrruption of skin lines, pain to lateral compression, and size estimated at 6-7mm diameter, plantar Forefoot, RIGHT Orthopedic GAIT ABNORMALITY: antalgic FOOT MORPHOLOGY: Pain on palpation do rso-lateral aspect, Left foot and plantar medial arch MUSCLE STRENGTH: 5/5 all groups in a symmetrical fashion, B/L General Examination GENERAL APPEARANCE: Reveals a pleasant, alert, well nourished, well-developed, well hydrated individual, who demonstrates proper attention to hygiene/body habitus, and is in no acute distress, Pt serves as own historian for office visit today ORIENTED: person, place, and t navarro Vascular DP PULSES (B): 0/4, B/L PT [...] CORDS: absent , B/L PIGMENTATION: mottled, B/L X-Rays - IMAGING REPORT Findings: normal b one and soft tissue density consistent for patients age and sex Fracture: Negative fractures i dentified Views: 3 views of Foot , AP , LAT , LO , LEFT Clinical Indication(s): Evaluate for Fra cture
--- OUTSIDE RECORDS SUMMARY | 2024-04-22 15:19 | XMS_ITS ---
Author Organization [facility] Address [address] [place] [address] Care Team Providers Care Mechanical Engineer Name Role Phone Jorge Salgado MD Primary Care Provider Unavaila Parag Doll Unavailable [phone] Encounters Encounter Location Date Provider Diagnosis [address] [address] 02/20/2024 Parag Kirk Plan Of Treatment Next Appt Details Provider Name:Parag Kirk , 06/08/2024 11:30:00 AM, [address] [place], [address], Progress Notes * Pamela QUINONEZ FDOB:1950 (74 yo F)Acc No.[id number]:02/20/2024 Progress Note Patient:?Pamela QUINONEZ Provider:?Parag Kirk DPM :1950???Age:73 Y???Sex:Female D ate:02/20/2024 Address:[address] [place], [place] [id number] Pcp:Jorge Salgado MD Subjective: * Chief Complaints: * ??? * Medical History:? Objective: * Vitals:? Assessment: Plan: * Treatment: * Images: * The named appointment provid er may or may not be the originator of this progress note, and it is not deemed complete until electronically signed by the appointment provider. Sign off status: Pending * Provider:?Parag Kirk DPM Date:?2023 Generated for Marie em/Dimitri/Mesfin on:?04/22/2024 03:19 PM EST
--- OUTSIDE RECORDS SUMMARY | 2024-04-22 15:19 | XMS_ITS | Patient Health Record ---
Author Organization [facility] Address [address] [facility] [place] [address] Care Team Providers Care Email Specialist Name Role Phone Jorge Salgado MD Primary Care Provider Parag Caraballo Unavailable [phone] Allergies No Known Allergies Reason For Referral No Information Medications Medication SIG (Take, Route, Frequency, Duration) Notes Start Date End Date Status Lisinopril Not-Takin g Aspir-81 Active amLODIPine Besylate 5 MG TAKE 1 TABLET B Y MOUTH EVERY DAY Oral twice a day Active Vicks Active Multivitamin only sometimes Ac tive Ammonium Lactate 12 % 1 application to affected area Externally Twice a day for 30 days Not-Taking zzzCompression Stockings 20-30mm Hg . . . for . Not-Taking hydroCHLOROthiazide 25 MG 1 tablet Orall y Once a day Active Eliquis 5 MG 1 tablet Oral Twice a day Active Carvedilol 3.125 MG 1 tablet with food Oral Twice a day Active Immunizations Vaccine Route Administration Date Status Comme nts COVID-19 [employer]/Pham Unknown 04/24/2020 A dministered Social History Tobacco Use: Social History Observation [...] Are you an other tobacco user? No Problems Problem Type SNOMED Code ICD Code Onset Dates Problem Status W/U Status Risk Notes Problem Plantar wart (93628112) Plantar wart (B07.0) Active confirmed Chronic Problem Atherosclerosis of [place] arteries of the extremities (089937512173212) Atherosclerosis of [place] artery of both lower extremities, with unspecified presence of clinical manifestation (I70.203) Active confirmed Vital Signs Blood pressure diastolic 70 mm Hg 03/09/2024 Height 5ft 6in in 03/09/2024 Blood pressure systolic 120 mm Hg 03/09/2024 Weight 145 lbs 03/09/2024 BMI 23.4 kg/m2 03/09/2024 Procedures Procedure Date Ordered Date Performed Result Body Sit e 52574-AXSJKFT NAIL, 6 OR MORE 06/10/2023 N/A 37942-Yitp Destruction, 1-06/10/2023 N/A 71983-CYPT SKIN LESIONS, OVER 4 06/10/2023 N/A 60921-NBGGQTD NAIL, 6 OR MORE 08/26/2023 N/A 12867-Hmqf Destruction, 1-08/26/2023 N/A 66396-SVYC SKIN LESIONS, OVER 4 08/26/2023 N/A 27456-EGFMQRZ NAIL, 6 OR MORE 11/18/2023 N/A 82048-Filk Destruction, 1-11/18/2023 N/A 67704-RPII SKIN LESIONS, OVER 4 11/18/2023 N/A 50610-WXISSLB NAIL, 6 OR MORE 03/09/2024 N/A 42669-Aouo Destruction, 1-14 03/09/2024 N/A 26535-MSPA SKIN LESIONS, OVER 4 03/09/2024 N/A Encounters Encounter Location Date Provider Diagnosis [facility] [place] [address] [place] [address] 06/10/2023 Parag Kirk Atherosclerosis of [place] artery of both lower extremities, with unspecified presence of clinical manifestation I70.203 ; Plantar wart B07.0 ; Tinea unguium B35.1 ; Pain in right toe(s) M79.674 ; Pain in left toe(s) M79.675 and Pain in right foot M79.[address] [address] 08/26/2023 Parag Kirk Atherosclerosis of [place] artery of both lower extremities, with unspecified presence of clinical manifestation I70.203 ; Plantar wart B07.0 ; Tinea unguium B35.1 ; Pain in right toe(s) M79.674 ; Pain in left toe(s) M79.675 and Pain in right foot M79.[address] [address] 11/18/2023 Parag Kirk Atherosclerosis of [place] artery of both lower extremities, with unspecified presence of clinical manifestation I70.203 ; Plantar wart B07.0 ; Tinea unguium B35.1 ; Pain in right toe(s) M79.674 ; Pain in left toe(s) M79.675 and Pain in right foot M79.671 [facility] [address] [facility] [address] [place] [address] 11/26/2023 Parag Kirk Left foot pain M79.6 72 ; Sprain of left foot, initial encounter S93.602A and Atherosclerosis of [place] artery of both lower extremities, with unspecified presence of clinical manifestation I70.[address] [address] 03/09/2024 Parag Kirk Atherosclerosis of [place] artery of both lower extremities, with unspecified presence of clinical manifestation I70.203 ; Plantar wart B07.0 ; Tinea unguium B35.1 ; Pain in right toe(s) M79.674 ; Pain in left toe(s) M79.675 and Pain in right foot M79.[address] [address] 08/26/2023 Parag Kirk [address] [address] 11/18/2023 Parag Kirk [address] [place] [address] 11/26/2023 Parag Kirk Assessments Encounter Date Diagnosis (ICD Code) Assessment Notes Treatment Notes Treatment Clinical Notes Section Notes 06/10/2023 Plantar wart (ICD-10 - B07.0) 06/10/2023 Atherosclerosis of [place] artery of both lower extremities, with unspecified presence of clinical manifestation (ICD-10 - I70.203) 08/26/2023 Plantar wart (ICD-10 - B07.0) 08/26/2023 Atherosclerosis of [place] artery of both lower extremities, with unspecified presence of clinical manifestation (ICD-10 - I70.203) 11/18/2023 Plantar wart (ICD-10 - B07.0) 11/18/2023 Atherosclerosis of [place] artery of both lower extremities, with unspecified presence of clinical manifestation (ICD-10 - I70.203) 11/26/2023 Left foot pain (ICD-10 - M79.672) 11/26/2023 Sprain of left foot, initial encounter (ICD-10 - S93.602A) 03/09/2024 Plantar wart (ICD-10 - B07.0) 03/09/2024 Atherosclerosis of [place] artery of both lower extremities, with unspecified presence of clinical manifestation (ICD-10 - I70.203) 03/09/2024 Tinea unguium (ICD-10 - B35.1) 11/26/2023 Atherosclerosis of [place] artery of both lower extremities, with unspecified presence of clinical manifestation (ICD-10 - I70.203) 11/18/2023 Tinea unguium (ICD-10 - B35.1) 08/26/2023 Tinea unguium (ICD-10 - B35.1) 06/10/2023 Tinea unguium (ICD-10 - B35.1) 06/10/2023 Pain in right toe(s) (ICD-10 - M79.674) 08/26/2023 Pain in right toe(s) (ICD-10 - M79.674) 11/18/2023 Pain in right toe(s) (ICD-10 - M79.674) 03/09/2024 Pain in right toe(s) (ICD-10 - M79.674) 11/18/2023 Pain in left toe(s) (ICD-10 - M79.675) 03/09/2024 Pain in left toe(s) (ICD-10 - M79.675) 08/26/2023 Pain in left toe(s) (ICD-10 - M79.675) 06/10/2023 Pain in left toe(s) (ICD-10 - M79.675) 06/10/2023 Pain in right foot (ICD-10 - M79.671) 11/18/2023 Pain in right foot (ICD-10 - M79.671) 08/26/2023 Pain in right foot (ICD-10 - M79.671) 03/09/2024 Pain in right foot (ICD-10 - M79.671) Plan Of Treatment Pending Test Test Name Order Date X ray : Foot, left 3V 11/26/2023 26915-NEDJJKP NAIL, 6 OR MORE 03/09/2024 17857-QZALCMB NAIL, 6 OR MORE 11/18/2023 67235-VCHKNUZ NAIL, 6 OR MORE 12/04/2018 61617-YYCSXKW NAIL, 6 OR MORE 10/01/2016 14224-HJCDKXU NAIL, 6 OR MORE 08/26/2023 87091-LBZHIAA NAIL, 6 OR MORE 09/15/2018 10348-VJRNQDC NAIL, 6 OR MORE 08/20/2022 70258-RDNLCFJ NAIL, 6 OR MORE 10/01/2022 67985-ZMQXNNM NAIL, 6 OR MORE 03/05/2022 52746-TQPDUCH NAIL, 6 OR MORE 01/14/2023 34855-DMEKYQX NAIL, 6 OR MORE 04/01/2023 78225-JSKNKKT NAIL, 6 OR MORE 06/10/2023 58673-DDLSXDR NAIL, 6 OR MORE 05/21/2016 68300-UASUDQU NAIL, 6 OR MORE 07/23/2016 51742-BSASGPK NAIL, 6 OR MORE 12/10/2016 73050-GEFJBRQ NAIL, 6 OR MORE 02/11/2017 23895-FQOEFCX NAIL, 6 OR MORE 04/22/2017 63494-VATZHFW NAIL, 6 OR MORE 10/07/2017 41721-GVUWRLF NAIL, 6 OR MORE 12/30/2017 93039-HZKXNMV NAIL, 6 OR MORE 03/31/2018 52192-RPYXUVC NAIL, 6 OR MORE 06/30/2018 66331-MKPCZIT NAIL, 6 OR MORE 02/12/2019 02430-ZBVMTUO NAIL, 6 OR MORE 04/23/2019 02893-RDIGYCV NAIL, 6 OR MORE 07/06/2019 71500-PCMSSRF NAIL, 6 OR MORE 09/28/2021 27836-ARWQGNX NAIL, 6 OR MORE 12/18/2021 49665-KQAYTNE NAIL, 6 OR MORE 05/21/2022 85190-Mzlt Destruction, -05/21/2022 66307-Dbpm Destruction, 03-0912/18/2021 87692-Ylbm Destruction, 03-0909/28/2021 24341-Sehu Destruction, 03-0907/06/2019 45622-Vxip Destruction, 03-0904/23/2019 57999-Fcni Destruction, 03-0902/12/2019 34029-Ujvo Destruction, 03-0906/30/2018 08783-Unns Destruction, 03-0903/31/2018 01225-Nbrt Destruction, 03-0912/30/2017 32519-Zlwh Destruction, 03-0907/08/2017 67105-Qcqz Destruction, 03-0910/07/2017 00863-Zkdw Destruction, 03-0904/22/2017 98995-Bcef Destruction, 03-0902/11/2017 33837-Radh Destruction, 03-0903/12/2016 91844-Vwdd Destruction, 03-0912/10/2016 41910-Pmqa Destruction, 03-0905/21/2016 56738-Ncbc Destruction, 03-0907/23/2016 69345-Plyg Destruction, 03-0906/10/2023 19376-Vvog Destruction, 03-0904/01/2023 83222-Zslk Destruction, 03-0901/14/2023 81909-Qxbv Destruction, 03-0903/05/2022 59172-Mokk Destruction, 03-0910/01/2022 29216-Sfxe Destruction, 03-0908/20/2022 12717-Rods Destruction, 03-0909/15/2018 45489-Mnal Destruction, 1-08/26/2023 64725-Bdrx Destruction, -12/04/2018 77291-Xuhn Destruction, -10/01/2016 29678-Ckgs Destruction, 03-0911/18/2023 87698-Nflw Destruction, 03-0903/09/2024 51145-Pksrbzwg Plate 08/20/2022 61315-Pankadjf Plate 10/01/2022 00007-Yaiozbqd Plate 12/10/2016 45663-Idrnnbdr Plate 05/21/2022 54093-SIWH SKIN LESIONS, OVER 4 05/22/19 89454-XYYY SKIN LESIONS, OVER 4 09/29/19 74677-SRFC SKIN LESIONS, OVER 4 12/19/19 94638-RWJC SKIN LESIONS, OVER 4 10/02/19 28432-HVII SKIN LESIONS, OVER 4 08/21/19 58308-VHAX SKIN LESIONS, OVER 4 03/05/19 97126-QDIP SKIN LESIONS, OVER 4 01/15/20 66142-GYWZ SKIN LESIONS, OVER 4 04/01/19 09875-WECX SKIN LESIONS, OVER 4 06/10/19 79756-YEJR SKIN LESIONS, OVER 4 03/09/19 38604-YLZJ SKIN LESIONS, OVER 4 11/18/19 85101-AHEX SKIN LESIONS, OVER 4 08/26/19 Next Appt Details Provider Name:Parag Kirk , 06/08/2024 11:30:00 AM, [address] [facility], [place], [address], Insurance Providers Payer Name Payer Address Payer Phone Subscriber Number Group Number Insured Name Patient Relationship to Insured Coverage Start Date Coverage End Date [facility] 65 Medicare Preferred [address] [place] [address] [id number] Pamela Marr Self - patient is the insured Medical (General) History Medical History History ICD Code Broken bones Chicken pox High blood pressure Measles Kidney disease stage lll Peripheral Artery Disease Hypertensive urgency A Fib Surgical History Surgery Date(Month/Year) Stent L leg 01/2022 Hospitalization History Reason Date(Month/Year) [facility] ER sent by PCP for cardiac Rehab Afib chaning BP 2 days 10/20-
== END 2024-04-22 12:51 | disposition home or self-care (01) ==
LOC: HO.LAB 12:50
PROVIDERS: PCP Internal Medicine; Visit Provider Internal Medicine
DX: I12.9 Hypertensive chronic kidney disease with stage 1 through stage 4 chronic kidney disease, or unspecified chronic kidney disease (principal); N18.9 Chronic kidney disease, unspecified; I48.91 Unspecified atrial fibrillation; J44.9 Chronic obstructive pulmonary disease, unspecified
CPT/HCPCS: 36415; 80048

== ENCOUNTER 2024-06-10 15:40 | Outpatient (AMB) | payer MEDICARE, SELFPAY ==
--- NOTE | 2024-06-10 15:36 | MHC.PC.OV ---
Vital Signs 06/10/24 15:41 Height 5 ft 6 in Weight 145 lb BMI 23.4 BP 124/70 Respiration 16 Pulse 66 Pulse Source Pulse Oximeter Temp 97.8 F Temp Source Temporal Artery Scan Pulse Oximetry (%) 97 Oxygen Delivery Method Room Air Intake Visit Reasons: Routine - see comments Bicycle Technician Required: No Accompanied by: Self / Same As Patient Allergies No Known Allergies Allergy (Unverified 06/10/24 15:36) Tobacco use date assessed: 06/10/24 Fall risk assessment: No Falls in past year Last assessed Fall Risk: 06/10/24 Dental Screening Dental Screen Date: 06/10/24 Did you have a dental visit in the last 12 months?: Yes Did you have a dental problem in the last 6 months where you did not have access to dental care?: No Was dental information given to patient?: Patient has dentist HPI HPI Comments History of Present Illness Details The patient is a 74 year old female with a past medical history of hypertension, atrial fibrillation, PAD, CKD, anxiety, COPD presenting for follow up. Last seen by pcp in December CV: Was referred to cardiology but did not keep her appt. On amlodipine 5mg daily, coreg 3.125 bid, eliquis 5 mg twice daily, hctz 12.5mg. BP is 124/70. Has afib with RVR, hypertension hospitalization in 2021. Denies chest pain, palpitations. She has been cutting back on her coreg and eliquis taking different doses on different days due to fatigue. PAD h/o SFA stent, has not been following up with vascular COPD: no meds ROS CONSTITUTIONAL: Denies weight loss, fever and chills. HEENT: Denies changes in vision and hearing. RESPIRATORY: Denies SOB and cough. CV: Denies palpitations and CP GI: Denies abdominal pain, nausea, vomiting and diarrhea. : Denies dysuria and urinary frequency. MSK: Denies new myalgia and joint pain. SKIN: Denies rash and pruritus. NEUROLOGICAL: Denies headache PSYCHIATRIC: Denies recent changes in mood. PHYSICAL EXAM: GENERAL: Alert and oriented x 3. NAD EYES: EOMI. Anicteric. HENT: Moist mucous membranes. No scleral icterus. No cervical lymphadenopathy. LUNGS: Clear to auscultation bilaterally. CARDIOVASCULAR: Regular rate and rhythm. No murmur. No JVD. ABDOMEN: Soft, non-tender +bs EXTREMITIES: No edema. Non-tender. SKIN: No rashes or lesions. Warm. NEUROLOGIC: No focal neurological deficits. CN II-XII grossly intact PSYCHIATRIC: Cooperative. Appropriate mood and affect [facility] Medical History Hypertension Osteoporosis Nicotine dependence, cigarettes, uncomplicated Family History Father Lung cancer Alcohol abuse Mother BP (high blood pressure) Social History Housing: House Alcohol intake: current Alcohol intake frequency: does not drink Patient Tobacco Use Status: Current everyday Tobacco user Cigarette Packs Per Day: 1 Cigarettes Per Day: 20 service: No Current occupational status: unemployed Cognitive needs: No Hearing needs: No Vision needs: Yes (rx glasses) Questionnaire PHQ-9 Over the last 2 weeks, how often have you been bothered by any of the following problems? 1. Little interest or pleasure in doing things: not at all 2. Feeling down, depressed, or hopeless: not at all 3. Trouble falling or staying asleep, or sleeping too much: not at all 4. Feeling tired or having little energy: not at all 5. Poor appetite or overeating: not at all 6. Feeling bad about yourself - or that you are a failure or have let yourself or your family down: not at all 7. Trouble concentrating on things, such as reading the newspaper or watching television: not at all 8. Moving or speaking so slowly that other people could have noticed. Or the opposite - being so fidgety or restless that you have been moving around a lot more than usual: not at all 9. Thoughts that you would be better off or of hurting yourself in some way: not at all Total score: 0 Depression Screening Interpretation: Negative Depression Screening Done: Yes 55643 - PHQ-9 Billing: Yes Source: Developed by Drs. Mina Cody, Buffy Davis, Louie Puente and colleagues, with an educational blaine from [employer]. Thrive Questionnaire Date Thrive assessed: 06/10/24 I am a: Patient What is your living situation today?: I have a steady place to live Within the past 12 months, did the food you bought not last and you didn't have the money to get more?: Never true Within the past 12 months, did you worry whether your food would run out before you got money to buy more?: Never true Do you have trouble paying for medicines?: No Do you have trouble getting transportation to medical appointments?: No Do you have trouble paying your heating and electricity bill?: No Do you have trouble taking care of your child, family member or friend?: No Do you have trouble with day-to-day activities such as bathing, preparing meals, shopping, managing finances, etc.?: No Are you currently unemployed and looking for a job?: No Are you interested in more education?: No Please select the resources that you would like help with: None THRIVE Score: 0 AUDIT C Alcohol Use Questionnaire (AUDIT-C) 1. How often do you have a drink containing alcohol?: Never 3. How often do you have six or more drinks on one occasion?: Never Total Score: 0 LESA-7 AMB Questionnaire LESA-7 Date LESA - 7 assessed: 06/10/24 Feeling nervous, anxious, or on edge: 0 = Not at all Not being able to stop or control worryin = Not at all Worrying too much about different things: 0 = Not at all Trouble relaxin = Not at all Being so restless that it is hard to sit still: 0 = Not at all Becoming easily annoyed or irritable: 0 = Not at all Feeling afraid as if something awful might happen: 0 = Not at all Total LESA-7 score (0-4 normal; 5-9 mild; 10-14 moderate; 15-21 severe): 0 Source: Developed by Drs. Mina Cody, Buffy Davis, Louie Puente and colleagues, with an educational blaine from [employer]. Physical exam (Primary Care) Vital Signs: Last Vital Signs Temp 97.8 F 06/10/24 15:41 Pulse 66 06/10/24 15:41 Resp 16 06/10/24 15:41 BP 124/70 06/10/24 15:41 Pulse Ox 97 06/10/24 15:41 Oxygen Delivery Method Room Air 06/10/24 15:41 BMI result Body Mass Index 23.4 Tobacco/Smoking Status: Tobacco use Status Tobacco use date assessed 06/10/24 06/10/24 15:38 Patient Tobacco Use Status Never used Tobacco 06/10/24 15:38 PHQ-9: PHQ-9 Score PHQ-9: Total score 0 06/10/24 15:38 Depression Screening Interpretation: Negative Thrive Assessment: Date of Thrive Assessment Date Thrive assessed 06/10/24 06/10/24 15:38 Coding Level of Care Code New Pt Level 4 (60933) Complex EM visit Add On G2211 Diagnoses Paroxysmal atrial fibrillation I48.0 Atrial fibrillation type: paroxysmal Primary hypertension I10 Hypertension type: primary hypertension Osteoporosis, unspecified osteoporosis type, unspecified pathological fracture presence M81.0 Osteoporosis type: unspecified Presence of current pathological fracture: unspecified Additional Codes PHQ-9 - 80683 - PHQ-9 Billing: Yes ([id number]) Assessment & Plan Assessment & Plan (1) Atrial fibrillation: Code(s): I48.91 - Unspecified atrial fibrillation Category: Medical Qualifiers: Atrial fibrillation type: paroxysmal Qualified Code(s): I48.0 - Paroxysmal atrial fibrillation (2) Hypertension: Code(s): I10 - Essential (primary) hypertension Category: Medical Qualifiers: Hypertension type: primary hypertension Qualified Code(s): I10 - Essential (primary) hypertension (3) Osteoporosis: Comment: (Bone Dexa Lumbar T-score: -3.1 on 11/14/21) Code(s): M81.0 - Age-related osteoporosis without current pathological fracture Category: Medical Qualifiers: Osteoporosis type: unspecified Presence of current pathological fracture: unspecified Qualified Code(s): M81.0 - Age-related osteoporosis without current pathological fracture Plan 74 y/o to establish care Past medical, surgical, social reviewed She will take 1/2 coreg BiD, 1/2 eliquis BID so atleast she is taking a consistent amount on a daily basis Labs ordered Blood pressure is well controlled Orders: Orders Lipid Panel 4 Months I10 - Essential (primary) hypertension, I48.91 - Unspecified atrial fibrillation, M81.0 - Age-related osteoporosis without current pathological fracture, Z13.0 - Encounter for screening for diseases of the blood and blood-forming organs and certain disorders involving the immune mechanism Vitamin D 25-OH (D2 and D3) 4 Months I10 - Essential (primary) hypertension, I48.91 - Unspecified atrial fibrillation, M81.0 - Age-related osteoporosis without current pathological fracture, Z13.0 - Encounter for screening for diseases of the blood and blood-forming organs and certain disorders involving the immune mechanism Complete Blood Count Auto Diff 4 Months I10 - Essential (primary) hypertension, I48.91 - Unspecified atrial fibrillation, M81.0 - Age-related osteoporosis without current pathological fracture, Z13.0 - Encounter for screening for diseases of the blood and blood-forming organs and certain disorders involving the immune mechanism Comprehensive Met. Panel 4 Months I10 - Essential (primary) hypertension, I48.91 - Unspecified atrial fibrillation, M81.0 - Age-related osteoporosis without current pathological fracture, Z13.0 - Encounter for screening for diseases of the blood and blood-forming organs and certain disorders involving the immune mechanism TSH reflex Free T4 4 Months I10 - Essential (primary) hypertension, I48.91 - Unspecified atrial fibrillation, M81.0 - Age-related osteoporosis without current pathological fracture, Z13.0 - Encounter for screening for diseases of the blood and blood-forming organs and certain disorders involving the immune mechanism Referrals Cardiology Referral F17.210 - Nicotine dependence, cigarettes, uncomplicated, I10 - Essential (primary) hypertension, I48.91 - Unspecified atrial fibrillation
[2024-06-10 15:41] VITALS: BP 124/70; PULSE 66; RESP 16; TEMP 36.6; O2SAT 97; BMI 23.4
--- OUTSIDE RECORDS SUMMARY | 2024-06-10 18:09 | XMS_ITS ---
Author Organization [facility] Address [address] [place] [address] Care Team Providers Care Telegraph Service Clerk Name Role Phone Nini Tinoco Primary Care Provider Parag Harley Unavailable [phone] Allergies No Known Allergies REASON FOR VISIT [...] Ordered Date Performed Result Body Sit e 94530-WBHAYVG NAIL, 6 OR MORE 03/09/2024 N/A 74497-Pikr Destruction, -03/09/2024 N/A 25306-QQSQ SKIN LESIONS, OVER 4 03/09/2024 N/A Encounters Encounter Location Date Provider Diagnosis [facility] [address] [place] [address] 03/09/2024 Parag Kirk Atherosclerosis of [place] artery of both lower extremities, with unspecified presence of clinical manifestation I70.203 ; Plantar wart B07.0 ; Tinea unguium B35.1 ; Pain in right toe(s) M79.674 ; Pain in left toe(s) M79.675 and Pain in right foot M79.671 Assessments Encounter Date Diagnosis (ICD Code) Assessment Notes Treatment Notes Treatment Clinical Notes Section Notes 03/09/2024 Atherosclerosis of [place] artery of both lower extremities, with unspecified presence of clinical manifestation (ICD-10 - I70.203) 03/09/2024 Plantar wart (ICD-10 - B07.0) 03/09/2024 Tinea unguium (ICD-10 - B35.1) 03/09/2024 Pain in right toe(s) (ICD-10 - M79.674) 03/09/2024 Pain in left toe(s) (ICD-10 - M79.675) 03/09/2024 Pain in right foot (ICD-10 - M79.671) Plan Of Treatment Pending Test Test Name Order Date 26585-OAQZFCF NAIL, 6 OR MORE 03/09/2024 60249-Bsdp Destruction, -03/09/2024 41907-NBLM SKIN LESIONS, OVER 4 01/14/20 25 Next Appt Details Follow Up: prn, Reason: Provider Name:Parag Kirk , 09/14/2024 11:30:00 AM, [address] [place], [address], Procedure Notes * Category Sub-Category Detail Notes Wart Treatment Procedure Verruca, as desc ribed in exam, were debrided to pin-point bleeding margins with sterile 15 surgical blade, silver nitrate chemocautery applied, recomm. immune-boosting meds such as zinc, recomm. follow up with topical chemosurgical agents, Pt defers any other forms of tx - 15599 Debride Nail 6-10 Nail debridement Due to [...] use of a nail nipper and/or dremel-type track grinder, to a more viable healthy nail plate [...] to maintain effectiveness in symptomatic relief - 61749 Keratoma Treatment Parring or Cutting o f [...] instrumentation by the physician of record - 42254, Q8 Progress Notes * Pamela QUINONEZ FDOB:1950 (73 yo F)Acc No.[id number]:03/09/2024 Progress Note Patient:?Pamela QUINONEZ Provider:?Parag Kirk DPM :1950???Age:73 Y???Sex:Female D ate:03/09/2024 Address:[address] [place] [address] Pcp:Jorge Salgado MD Subjective: * Chief Complaints: [...] ross g 01/2022 * Hospitalization/Major Diagno stic Procedure:?[facility] ER sent by PCP for cardiac Rehab [...] wart - B07.0 (Brenna phuong)???Specify :RIGHT???2.?Atherosclerosis of [place] artery of both lower extremities, with unspecified presence of clinical manifestation - I70.203???3.?Tinea unguium - B35.1???4.?Pain in right toe(s) - M79.674???5.?Pain in left toe(s) - M79.675???6.?Pain in right foot - M79.671??? Plan: * Treatment: 2.?Atherosclerosis of [place] artery of both lower extremities, with unspecified presence of clinical manifestation?Procedure: 09737-NQSL SKIN LESIONS, OVER 4 3.?Tinea unguium?Procedure: 48007-ZVQRWMY NAIL, 6 OR MORE * Procedures:?Debride Nail [...] use of a nail nipper and/or dremel-type track grinder, to a more viable healthy nail plate [...] to maintain effectiveness in symptomatic relief - 45851.?Keratoma Treatment:?Parring or Cutting of Benign Hyperkeratotic Lesion(s)?(-57) [...] instrumentation by the physician of record - 85902, Q8.?Wart Treatment:?Procedure?Verruca, as described in exam, were debrided to pin-point bleeding margins with sterile 15 surgical blade, silver nitrate chemocautery applied, recomm. immune-boosting meds such as zinc, recomm. follow up with topical chemosurgical agents, Pt defers any other forms of tx - 82025.? * Procedure Codes:?22600 DEBRI DE NAIL, 6 OR MORE, Modifiers: XS 28990 Wart Destruction, 1-14, Modifiers: XS 06810 TRIM SKIN LESIONS, OVER 4, Modifiers: XS , Q8 * Follow Up:?prn * Images: * Sign off status: Completed true * Provider:?Parag Kirk DPM Date:?2024 Generated for Marie em/Dimitri/Mesfin on:?06/10/2024 06:09 PM EDT History and Physical Notes * HPI (History [...]
--- OUTSIDE RECORDS SUMMARY | 2024-06-10 18:09 | XMS_ITS ---
Author Organization [facility] Address [address] [place] [address] Care Team Providers Care Nurses' Registry Director Name Role Phone Nini Tinoco Primary Care Provider Parag Harley Unavailable [phone] Allergies No Known Allergies REASON FOR VISIT At Risk Footcare, Painful Nail(s) aggrevated by shoes and causing difficulty standing/walking. Medications Medication SIG (Take, Route, Frequency, Duration) Notes Start Date End Date Status Lisinopril Not-Takin g zzzCompression Stockings 20-30mm Hg . . . for . Not-Taking Ammonium Lactate 12 % 1 application to affected area Externally Twice a day for 30 days Not-Taking amLODIPine Besylate 5 MG TAKE 1 TABLET B Y MOUTH EVERY DAY Oral twice a day Active Vicks Active Aspir-81 Active Carvedilol 3.125 MG 1 tablet with food Oral Twice a day Active Multivitamin only sometimes Ac tive Eliquis 5 MG 1 tablet Oral Twice a day Active hydroCHLOROthiazide 25 MG 1 tablet Orall y Once a day Active Social History Tobacco Use: Social History Observation Description Date Details (start date - stop date) Current Smoker 05/27/1994 - NA Tobacco use other than smoking: Question Answer Notes Are you an other tobacco user? No Tobacco Control (Standard) Question Answer Notes Tobacco use: Current smoker When did you start smoking? 05/27/1994 How often do you smoke cigarettes? Every day How many cigarettes a day do you smoke? 6-10 How soon after you wake up d o you smoke your first cigarette? 6-30 minutes Are you interested in quitting? Thinking about q uitting Additional Findings: Tobacco user Modera te cigarette smoker (10-19 cigs/day) AUDIT-C (Standard) Question Answer Notes Did you have a drink containing alcohol in the p ast year? No Points 0 Interpretation Negative Vital Signs Height 5ft 6in in 06/08/2024 Weight 145 lbs 06/08/2024 BMI 23.4 kg/m2 06/08/2024 Blood pressure systolic 120 mm Hg 06/09/19 25 Blood pressure diastolic 60 mm Hg 025 Procedures Procedure Date Ordered Date Performed Result Body Sit e 01019-AQZNBVP NAIL, 6 OR MORE 06/08/2024 N/A 71220-JFKK SKIN LESIONS, OVER 4 06/08/2024 N/A Encounters Encounter Location Date Provider Diagnosis [facility] [address] [address] 06/08/2024 Paraggallo Quanier Atherosclerosis of [place] artery of both lower extremities, with unspecified presence of clinical manifestation I70.203 ; Tinea unguium B35.1 ; Pain in right toe(s) M79.674 and Pain in left toe(s) M79.675 Assessments Encounter Date Diagnosis (ICD Code) Assessment Notes Treatment Notes Treatment Clinical Notes Section Notes 06/08/2024 Atherosclerosis of [place] artery of both lower extremities, with unspecified presence of clinical manifestation (ICD-10 - I70.203) 06/08/2024 Tinea unguium (ICD-10 - B35.1) 06/08/2024 Pain in right toe(s) (ICD-10 - M79.674) 06/08/2024 Pain in left toe(s) (ICD-10 - M79.675) Plan Of Treatment Pending Test Test Name Order Date 25072-ZUEOHMB NAIL, 6 OR MORE 06/08/2024 99569-JJFA SKIN LESIONS, OVER 4 06/09/19 25 Next Appt Details Follow Up: prn, Reason: Provider Name:Parag Kirk , 09/14/2024 11:30:00 AM, [address] [place] [address], [id number], Procedure Notes * Category Sub-Category Detail Notes Debride Nail 6-10 Nail debridement Due to the cl inical pathology outlined in the exam findings, performance of this nail treatment is medically necessary as its management by an unskilled/untrained nonprofessional would put this patients foot and overall health at risk. Therefore, debridement to affected nail(s), as described in exam ( TA, T1, T3, T4, T6, T8, T9 ), was performed exclusively by the physician of record to reduce/remove overall nail length, girth, thickness, subungual debris, and necrotic tissue, by manual and/or electrical means through the use of a nail nipper and/or dremel-type valve grinder, to a more viable healthy nail [...] to maintain effectiveness in symptomatic relief - 47637 Keratoma Treatment Parring or Cutting o f Benign Hyperkeratotic Lesion(s) (-57) More than 4 Lesions - Due to the at risk nature of the patients medical condition as documented in the exam findings, performance of this keratoderma treatment is medically necessary as its management by an unskilled/untrained nonprofessional would put this patients foot and overall health at risk. Therefore, the benign hyperkeratotic lesions, (7) in total, locations as stated and described in the exam ( SUB MTH (s), 1, B/L , SUB MTH (s), 2, B/L ,SUB MTH (s),4,Right,Plantar, Heel(s), B/L ), were pared, and/or cut utilizing a sterile 15 blade, tissue nippers, and/or power dremel instrumentation by the physician of record - 17041, Q8 Progress Notes * Pamela QUINONEZ FDOB:1950 (74 yo F)Acc No.[id number]:06/08/2024 Progress Note Patient:?Pamela QUINONEZ Provider:?Parag Kirk DPM :1950???Age:74 Y???Sex:Female D ate:06/08/2024 Address:[address] [place] [address] Pcp:Nini Tinoco Subjective: * Chief Complaints: * ???At Risk FootcarePainful N ail(s) aggrevated by shoes and causing difficulty standing/walking. * HPI: ???At Risk footcare:?Pt States Last PCP Visit:?Date?11/27/2023 States has an appt with PCP soon - 06/10 * ROS:?General/Constitutional:?Nausea?denies.?Vomiting?denies.?Hunger Thirst?denies.?Loss appetite?denies.?Chills?denies.?Fatigue?admits.?Fever?denies.?Night Sweats?denies.?Unexplained weight loss?denies.?Unexplained weight gain?denies.?HEENTM:?Dentures?denies.?Dizziness?denies.?Glasses/contacts?admits.?Retinopathy?den ies.?Blurred/double vision?denies.?TMJ?denies.?Discharge/drainage?denies.?Implants?denies.?Sore throat?denies.?Dental implants?denies.?Hard of hearing ?denies.?Difficulty chewing/swallowing/speaking?denies.?Nose bleeds?denies.?Sore mouth?denies.?Respiratory:?On O xygen?denies.?Pneumonia/pleurisy?denies.?Bronchitis?denies.?Emphysema?denies.?Co ughing?admits.?Cough blood?denies.?Shortness of breath?admits.?Wheezing?denies.?Cardiovascular:?Pacemaker?denies.?MVP?denies.?WPW?denies.?CHF?denies.?Heart attack?denies.?Septal defect?denies.?Rapid beat?denies.?Chest pain ?denies.?Atrial Fib.?denies.?Murmur/Palpitations?denies.?Gastrointestinal:?Hemorrhoids?denies.?Stomach/Abdominal pain?denies.?Dark blood stool?denies.?Irritable bowel ?denies.?Constipation?denies.?Diarrhea?denies.?Hematology:?Swelling?denies.?Clots?denies.?Varicose Veins?admits.?Bruising?admits, on anticoagulants.?Bleeding problem?admits, on anticoagulants.?Genitourinary:?Blood urine?denies.?Frequent/Painfu/urination/bladder control?denies.?Kidney stones?denies.?Infection (UTI)?denies.?Nephropathy?denies.?sex trans dis (STD)?denies.?Prostate?denies.?Musculoskeletal:?Hammertoes?admits.?Bunions?admits.?Back Pain?denies.?Muscle Cramps/ Resting?denies.?Muscle cramps / walking?denies.?Generalized aches and pains?denies.?Weakness?admits.?Integ.:?Dupree?denies.?Scars?denies.?Corns/calluses?admits.?Ingrown nails?admits.?Painful nails?admits.?Open Sores?denies.?Rashes?denies.?Neurologic:?Difficulty sleeping?denies.?Brain disorder?denies.?Numbness?denies.?Balance t rouble?denies.?Confusion?denies.?Fainting/blackouts?denies.?Tingling?denies.?Erick mors?denies.? * Medical History:? * Surgical History:?Stent L le g 01/2022 * Hospitalization/Major Diagno stic Procedure:?[facility] ER sent by PCP for cardiac Rehab Afib chaning BP 2 days 10/20- * Family History:?Mother: dece ased, diagnosed with Unspecified essential hypertension, Family history of arthritis.?Father: , diagnosed with Other malignant neoplasm of unspecified site.? * Social History:?Tobacco Use:?Tobacco use other than smoking?Are you an other tobacco user??No ?Tobacco Control (Standard)?Tobacco use:?Current smoker ?When did you start smoking??05/27/1994 ?How often do you smoke cigarettes??Every day ?How many cigarettes a day do you smoke??6-10 ?How soon after you wake up do you smoke your first cigarette??6-30 minutes ?Are you interested in quitting??Thinking about quitting ?Additional Findings: Tobacco user?Moderate cigarette smoker (10-19 cigs/day) ???Drugs/Alcohol:?Drugs?Have you used drugs other than those for medical reasons in the past 12 months??No ???Miscellaneous:?Caffeine: yes, 3-4 cups per day. ?Children: no, none. ?Exercise: no. ?Marital status: single. 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 ???Drug/Alcohol:?AUDIT-C (Standard)?Did you have a drink containing alcohol in the past year??No ?Points?0 ?Interpretation?Negative * Medications:?TakingamLODIPin e Besylate 5 MG Tablet [...] and reconciled with the patient * Allergies:?N.K.D.A.yes[Aller girickey Verified] Objective: * Vitals:?Ht: 5ft 6in, Wt:145, BMI: 23.4, Shoe size:10W, BP:120/60mm Hg, Ht-cm: 167.64 cm, Wt-k.77 kg. * [...] B/L , SUB MTH (s), 2, B/L ,SUB MTH (s),4,Right,Plantar, Heel(s), B/L.?VERRUCA:?NOW NO FURTHER SIGN of mosaic papule(s) with skin lines now evident and visible, plantar Forefoot, RIGHT.? Assessment: * Assessment: 1.?Tinea unguium - B35.1???2 .?Atherosclerosis of kotz[place] artery of both lower extremities, with unspecified presence of clinical manifestation - I70.203 (Primary)???Specify :Q8???3.?Pain in right toe(s) - M79.674???4.?Pain in left toe(s) - M79.675??? Plan: * Treatment: 2.?Tinea unguium?Procedure: 49272-XUNIRZF NAIL, 6 OR MORE * Procedures:?Debride Nail 6-10:?Nail debridement?Due to the clinical pathology outlined in the exam findings, performance of this nail treatment is medically necessary as its management by an unskilled/untrained nonprofessional would put this patients foot and overall health at risk. Therefore, debridement to affected nail(s), as described in exam (?TA,?T1,?T3,?T4,?T6,?T8,?T9?), was performed exclusively by the physician of record to reduce/remove overall nail length, girth, thickness, subungual debris, and necrotic tissue, by manual and/or electrical means through the use of a nail nipper and/or dremel-type valve grinder, to a more viable healthy nail [...] to maintain effectiveness in symptomatic relief - 51486.?Keratoma Treatment:?Parring or Cutting of Benign Hyperkeratotic Lesion(s)?(-57) More than 4 Lesions - Due to the at risk nature of the patients medical condition as documented in the exam findings, performance of this keratoderma treatment is medically necessary as its management by an unskilled/untrained nonprofessional would put this patients foot and overall health at risk. Therefore, the benign hyperkeratotic lesions, (7) in total, locations as stated and described in the exam (?SUB MTH (s),?1,?B/L?,?SUB MTH (s),?2,?B/L?,SUB MTH (s),4,Right,Plantar,?Heel(s),?B/L?), were pared, and/or cut utilizing a sterile 15 blade, tissue nippers, and/or power dremel instrumentation by the physician of record - 52107, Q8.? * Procedure Codes:?48945 DEBRI DE NAIL, 6 OR MORE, Modifiers: XS 56242 TRIM SKIN LESIONS, OVER 4, Modifiers: XS , Q8 * Preventive Medicine:? ??Counseling:?Tobacco use:?Patient counseled on the dangers of smoking and urged to quit:?06/08/2024 * Follow Up:?prn * Images: * Sign off status: Completed true * Provider:?Parag Kirk DPM Date:?2024 Generated for Marie em/Dimitri/Mesfin on:?06/10/2024 06:08 PM EDT History and Physical Notes * HPI (History of Present Illness) Category Sub-Category Detail Notes Category Not es At Risk footcare Pt States Last PCP Visit: Date: 11/27/2023 States has an appt with PCP soon - 06/10 Examination Category Sub-Category Detail Notes Category Not es Dermatologic SKIN FINDINGS: Skin exam reveal s Keratotic lesion(s) located at, SUB MTH (s), 1, B/L , SUB MTH (s), 2, B/L ,SUB MTH (s),4,Right,Plantar, Heel(s), B/L VERRUCA: NOW NO FURTHER SIGN of mosaic papule(s) with skin lines now evident and visible, plantar Forefoot, RIGHT Ophthalmology Referral DIABETES EYE EXAM Procedure Perform ed:: Yes ?Date of Exam Performed: 01/26/2024 Diabetic Retinopathy Screening:: Yes Retinal Screening Performed:: Yes Findings of Diabetic Eye Exam:: no retin opathy Vascular DP PULSES (B): 0/4, B/L PT [...]
--- OUTSIDE RECORDS SUMMARY | 2024-06-10 18:09 | XMS_ITS ---
Author Organization [facility] Address [address] [place] [address] Care Team Providers Care Foam Gun Operator Name Role Phone Nini Tinoco Primary Care Provider Parag Harley Unavailable [phone] Encounters Encounter Location Date Provider Diagnosis [address] [address] 02/20/2024 Parag Kirk Plan Of Treatment Next Appt Details Provider Name:Parag Kirk , 09/14/2024 11:30:00 AM, [address] [place], [address], Progress Notes * Pamela QUINONEZ FDOB:1950 (74 yo F)Acc No.[id number]:02/20/2024 Progress Note Patient:?Pamela QUINONEZ Provider:?Parag Kirk DPM :1950???Age:73 Y???Sex:Female D ate:02/20/2024 Address:[address] [place], [place] [id number] Pcp:Nini Tinoco Subjective: * Chief Complaints: * ??? * Medical History:? Objective: * Vitals:? Assessment: Plan: * Treatment: * Images: * The named appointment provid er may or may not be the originator of this progress note, and it is not deemed complete until electronically signed by the appointment provider. Sign off status: Pending * Provider:?Parag Kirk DPM Date:?2023 Generated for Marie em/Dimitri/Mesfin on:?06/10/2024 06:09 PM EDT
--- OUTSIDE RECORDS SUMMARY | 2024-06-10 18:09 | XMS_ITS | Patient Health Record ---
Author Organization [facility] Address [address] [facility] [place] [address] Care Team Providers Care Reworker Name Role Phone Nini Tinoco Primary Care Provider Parag Harley Unavailable [phone] Allergies No Known Allergies Reason For Referral [...] EVERY DAY Oral twice a day Active Aspir-81 Active Carvedilol 3.125 MG 1 tablet with food Oral Twice a day Active Multivitamin only sometimes Ac tive Vicks Active Eliquis 5 MG 1 tablet Oral Twice a day Active hydroCHLOROthiazide 25 MG 1 tablet Orall y Once a day Active Immunizations Vaccine Route Administration [...] ast year? No Points 0 Interpretation Negative Problems Problem Type SNOMED Code ICD Code Onset Dates Problem Status W/U Status Risk Notes Problem Atherosclerosis of [place] arteries of the extremities ([id number]) Atherosclerosis of [place] artery of both lower extremities, with unspecified presence of clinical manifestation (I70.203) Active confirmed Vital Signs Blood pressure diastolic 60 mm Hg 06/08/2024 Height 5ft 6in in 06/08/2024 Blood pressure systolic 120 mm Hg 06/08/2024 Weight 145 lbs 06/08/2024 BMI 23.4 kg/m2 06/08/2024 Procedures Procedure Date Ordered Date Performed Result Body Sit e 75273-YCYIBIR NAIL, 6 OR MORE 08/26/2023 N/A 99377-Chyg Destruction, 1-14 08/26/2023 N/A 72484-RLDA SKIN LESIONS, OVER 4 08/26/2023 N/A 29315-LZBVKUC NAIL, 6 OR MORE 11/18/2023 N/A 91181-Zokv Destruction, 1-14 11/18/2023 N/A 11679-KQDY SKIN LESIONS, OVER 4 11/18/2023 N/A 64557-EQUGLLL NAIL, 6 OR MORE 03/09/2024 N/A 01563-Mqjm Destruction, 1-14 03/09/2024 N/A 60383-UPGQ SKIN LESIONS, OVER 4 03/09/2024 N/A 06722-LFFMXCT NAIL, 6 OR MORE 06/08/2024 N/A 87771-JBEX SKIN LESIONS, OVER 4 06/08/2024 N/A Encounters Encounter [facility] [address] 08/26/2023 Parag Kirk Atherosclerosis of [place] artery of both lower extremities, with unspecified presence of clinical manifestation I70.203 ; Plantar wart B07.0 ; Tinea unguium B35.1 ; Pain in right toe(s) M79.674 ; Pain in left toe(s) M79.675 and Pain in right foot M79.671 [facility] [address] [address] 11/18/2023 Parag Kirk Atherosclerosis of [place] artery of both lower extremities, with unspecified presence of clinical manifestation I70.203 ; Plantar wart B07.0 ; Tinea unguium B35.1 ; Pain in right toe(s) M79.674 ; Pain in left toe(s) M79.675 and Pain in right foot M79.671 [facility] [address] [facility] [address] [place] [address] 11/26/2023 Paraggallo Kirk Left foot pain M79.6 72 ; Sprain of left foot, initial encounter S93.602A and Atherosclerosis of shosh[place]bann[place] artery of both lower extremities, with unspecified presence of clinical manifestation I70.[address] [address] 03/09/2024 Parag Kirk Atherosclerosis of sh[place]ann[place] artery of both lower extremities, with unspecified presence of clinical manifestation I70.203 ; Plantar wart B07.0 ; Tinea unguium B35.1 ; Pain in right toe(s) M79.674 ; Pain in left toe(s) M79.675 and Pain in right foot M79.[address] [address] 06/08/2024 Parag Kirk Atherosclerosis of shosh[place]bann[place] artery of both lower extremities, with unspecified presence of clinical manifestation I70.203 ; Tinea unguium B35.1 ; Pain in right toe(s) M79.674 and Pain in left toe(s) M79.[address] [address] 08/26/2023 Parag Kirk [address] [address] 11/18/2023 Parag Kirk [address] [address] 11/26/2023 Parag Kirk Assessments Encounter Date Diagnosis (ICD Code) Assessment Notes Treatment Notes Treatment Clinical Notes Section Notes 08/26/2023 Plantar wart (ICD-10 - B07.0) 08/26/2023 Atherosclerosis of sh[place]ann[place] artery of both lower extremities, with unspecified presence of clinical manifestation (ICD-10 - I70.203) 11/18/2023 Plantar wart (ICD-10 - B07.0) 11/18/2023 Atherosclerosis of shoshone[place]bann[place] artery of both lower extremities, with unspecified presence of clinical manifestation (ICD-10 - I70.203) 11/26/2023 Left foot pain (ICD-10 - M79.672) 11/26/2023 Sprain of left foot, initial encounter (ICD-10 - S93.602A) 03/09/2024 Plantar wart (ICD-10 - B07.0) 03/09/2024 Atherosclerosis of shosh[place]bannock artery of both lower extremities, with unspecified presence of clinical manifestation (ICD-10 - I70.203) 06/08/2024 Tinea unguium (ICD-10 - B35.1) 06/08/2024 Atherosclerosis of shosh[place]bann[place] artery of both lower extremities, with unspecified presence of clinical manifestation (ICD-10 - I70.203) 06/08/2024 Pain in right toe(s) (ICD-10 - M79.674) 03/09/2024 Tinea unguium (ICD-10 - B35.1) 11/26/2023 Atherosclerosis of shosh[place]bannock artery of both lower extremities, with unspecified presence of clinical manifestation (ICD-10 - I70.203) 11/18/2023 Tinea unguium (ICD-10 - B35.1) 08/26/2023 Tinea unguium (ICD-10 - B35.1) 08/26/2023 Pain in right toe(s) (ICD-10 - M79.674) 11/18/2023 Pain in right toe(s) (ICD-10 - M79.674) 03/09/2024 Pain in right toe(s) (ICD-10 - M79.674) 06/08/2024 Pain in left toe(s) (ICD-10 - M79.675) 03/09/2024 Pain in left toe(s) (ICD-10 - M79.675) 08/26/2023 Pain in left toe(s) (ICD-10 - M79.675) 11/18/2023 Pain in left toe(s) (ICD-10 - M79.675) 11/18/2023 Pain in right foot (ICD-10 - M79.671) 08/26/2023 Pain in right foot (ICD-10 - M79.671) 03/09/2024 Pain in right foot (ICD-10 - M79.671) Plan Of Treatment Pending Test Test Name Order Date X ray : Foot, left 3V 11/26/2023 30400-RECCSMF NAIL, 6 OR MORE 03/09/2024 81450-TWDZRTM NAIL, 6 OR MORE 11/18/2023 83535-MSTNMRQ NAIL, 6 OR MORE 06/08/2024 48707-FLAYIOX NAIL, 6 OR MORE 01/14/2023 91707-HCWSLFH NAIL, 6 OR MORE 04/01/2023 33592-CLICNKW NAIL, 6 OR MORE 06/10/2023 79756-JDSRQRE NAIL, 6 OR MORE 08/26/2023 57543-WTGSEQU NAIL, 6 OR MORE 12/18/2021 64877-APRYZHM NAIL, 6 OR MORE 03/05/2022 43112-IBVMILX NAIL, 6 OR MORE 05/21/2022 12613-YAFTJGM NAIL, 6 OR MORE 08/20/2022 73495-JQZPJVN NAIL, 6 OR MORE 10/01/2022 07574-MSGNJZN NAIL, 6 OR MORE 05/21/2016 00513-ENNMAVQ NAIL, 6 OR MORE 07/23/2016 57104-GQJDIFI NAIL, 6 OR MORE 10/01/2016 35458-FZSSLRN NAIL, 6 OR MORE 12/10/2016 11024-JIIXWFK NAIL, 6 OR MORE 02/11/2017 68052-KFJAWLK NAIL, 6 OR MORE 04/22/2017 99225-UQYMXSR NAIL, 6 OR MORE 10/07/2017 37997-HCLWIMT NAIL, 6 OR MORE 12/30/2017 97427-FNJCGZJ NAIL, 6 OR MORE 03/31/2018 60991-PNSSQCN NAIL, 6 OR MORE 06/30/2018 09807-HPAFFEY NAIL, 6 OR MORE 09/15/2018 67301-VRACORA NAIL, 6 OR MORE 12/04/2018 03923-AUHGFIY NAIL, 6 OR MORE 02/12/2019 83284-SRZIVFE NAIL, 6 OR MORE 04/23/2019 62684-CKJQOZK NAIL, 6 OR MORE 07/06/2019 87290-EJWHFDD NAIL, OR MORE 09/28/2021 46215-Nzeo Destruction, 03-0909/28/2021 96605-Oggc Destruction, -07/06/2019 97817-Fqus Destruction, 03-0904/23/2019 94056-Pyhr Destruction, 03-0902/12/2019 43975-Fpbz Destruction, 03-0912/04/2018 68657-Hcyn Destruction, 03-0909/15/2018 42549-Gcsf Destruction, 03-0906/30/2018 49149-Weul Destruction, 03-0903/31/2018 78967-Bxic Destruction, 03-0912/30/2017 70095-Ottu Destruction, 03-0907/08/2017 26605-Zamj Destruction, 03-0910/07/2017 51529-Zsxm Destruction, 03-0904/22/2017 64274-Mzun Destruction, 03-0902/11/2017 81873-Rfdb Destruction, 03-0903/12/2016 22753-Hbgl Destruction, 03-0912/10/2016 98630-Feqe Destruction, 03-0910/01/2016 24493-Yspi Destruction, 03-0905/21/2016 26455-Wpma Destruction, 03-0907/23/2016 38011-Sfjl Destruction, 03-0910/01/2022 59731-Khbw Destruction, 03-0908/20/2022 03584-Pvlt Destruction, 03-0905/21/2022 67794-Fynh Destruction, 03-0903/05/2022 15179-Abgv Destruction, 03-0912/18/2021 87030-Qacr Destruction, 03-0908/26/2023 09148-Eogl Destruction, 03-0906/10/2023 38058-Sufl Destruction, 03-0904/01/2023 17223-Ihrf Destruction, 03-0901/14/2023 56234-Ajrz Destruction, 03-0911/18/2023 75512-Stqn Destruction, 03-0903/09/2024 47650-Yrsytmtr Plate 05/21/2022 75545-Vrcmtbgy Plate 08/20/2022 20053-Zcwakczl Plate 10/01/2022 64261-Xteeewrs Plate 12/10/2016 61779-EKSY SKIN LESIONS, OVER 4 09/29/19 20887-XRMS SKIN LESIONS, OVER 4 10/02/19 97371-RIUP SKIN LESIONS, OVER 4 08/21/19 43941-KFNQ SKIN LESIONS, OVER 4 05/22/19 05407-XDHQ SKIN LESIONS, OVER 4 12/19/19 38258-GIKT SKIN LESIONS, OVER 4 03/05/19 53924-ZXRP SKIN LESIONS, OVER 4 03/09/19 30243-JKZC SKIN LESIONS, OVER 4 11/18/19 18009-PFAP SKIN LESIONS, OVER 4 06/09/19 41035-RIWU SKIN LESIONS, OVER 4 01/15/20 88080-KVBZ SKIN LESIONS, OVER 4 04/01/19 86077-DNUZ SKIN LESIONS, OVER 4 06/10/19 46772-JHJV SKIN LESIONS, OVER 4 08/26/19 Next Appt Details Provider Name:Parag Kirk , 09/14/2024 11:30:00 AM, [address] [facility], [place], [address], Insurance Providers Payer Name Payer Address Payer Phone Subscriber Number Group Number Insured Name Patient Relationship to Insured Coverage Start Date Coverage End Date [facility] 65 Medicare Preferred [address] [place] [address] [phone] [id number] Pamela Marr Self - patient is the insured Medical (General) History Medical History History ICD Code Broken bones Chicken pox High blood pressure Measles Kidney disease stage lll Peripheral Artery Disease Hypertensive urgency A Fib Surgical History Surgery Date(Month/Year) Stent L leg 01/2022 Hospitalization History Reason Date(Month/Year) [facility] ER sent by PCP for cardiac Rehab Afib chaning BP 2 days 10/20-
== END 2024-06-10 16:05 | disposition home or self-care (01) ==
LOC: HO.HMCHD 15:41
PROVIDERS: PCP Internal Medicine; Visit Provider Internal Medicine
DX: I48.0 Paroxysmal atrial fibrillation (principal); I10 Essential (primary) hypertension; M81.0 Age-related osteoporosis without current pathological fracture

== ENCOUNTER → 2024-06-10 15:40 | Outpatient (BNVA) | payer MEDICARE, SELFPAY | PROVIDERS: PCP Internal Medicine; Visit Provider Internal Medicine | DX: I10 Essential (primary) hypertension (principal); M81.0 Age-related osteoporosis without current pathological fracture; I48.0 Paroxysmal atrial fibrillation; I73.9 Peripheral vascular disease, unspecified; F41.9 Anxiety disorder, unspecified; J44.9 Chronic obstructive pulmonary disease, unspecified | CPT/HCPCS: 96127; 99202 ==

== ENCOUNTER 2024-09-29 07:47 | Outpatient (REF) | payer MEDICARE, SELFPAY ==
--- OUTSIDE RECORDS SUMMARY | 2024-09-29 07:49 | XMS_ITS | Patient Health Record ---
Author Organization [facility] Address [address] [place] [address] Care Team Providers Care Make Up Artist Name Role Phone Nini Tinoco Primary Care Provider Parag Harley Unavailable [phone] Allergies No Known Allergies Reason For Referral No Information Medications Medication SIG (Take, Route, Frequency, Duration) Notes Start Date End Date Status Lisinopril Not-Takin g Ammonium Lactate 12 % 1 application to affected area Externally Twice a day; Duration: 30 days Not-Taking amLODIPine Besylate 5 MG TAKE 1 TABLET B Y MOUTH EVERY DAY Oral twice a day Active zzzCompression Stockings 20-30mm Hg . . .; Duration: . Not-Taking Vicks Active Multivitamin only sometimes Ac tive Carvedilol 3.125 MG 1 tablet with food Oral Twice a day Active Aspir-81 Active hydroCHLOROthiazide 25 MG 1 tablet Orall y Once a day Active Eliquis 5 MG 1 tablet Oral Twice a day Active Immunizations Vaccine Route Administration Date Status Comme nts Influenza Unknown 11/25/2023 Administered COVID-19 [employer]/Pham Unknown 04/24/2020 A [...] Problem Status W/U Status Risk Notes Problem Bilateral atherosclerosis of arteries of lower limbs (disorder) ([id number] ) Atherosclerosis of [place] artery of both lower extremities, with unspecified presence of clinical manifestation (I70.203) Active confirmed Vital Signs Blood pressure diastolic 65 mm Hg 09/14/2024 Height 5ft 6in in 09/14/2024 Blood pressure systolic 128 mm Hg 09/14/2024 Weight 145 lbs 09/14/2024 BMI 23.4 kg/m2 09/14/2024 Procedures Procedure Date Ordered Date Performed Result Body Sit e 34165-ZHEZRXQ NAIL, 6 OR MORE 11/18/2023 N/A 53609-Vmdu Destruction, 1-14 11/18/2023 N/A 70800-FTPZ SKIN LESIONS, OVER 4 11/18/2023 N/A 47409-EGDVMPW NAIL, 6 OR MORE 03/09/2024 N/A 83358-Oyom Destruction, 1-14 03/09/2024 N/A 26068-NDCB SKIN LESIONS, OVER 4 03/09/2024 N/A 37899-QICBDCM NAIL, 6 OR MORE 06/08/2024 N/A 99571-IOPH SKIN LESIONS, OVER 4 06/08/2024 N/A 02168-SMOKWXZ NAIL, 6 OR MORE 09/14/2024 N/A 34314-JDXP SKIN LESIONS, OVER 4 09/14/2024 N/A Encounters Encounter Location Date Provider Diagnosis [facility] [place] [address] [place] [address] 11/18/2023 Parag Kirk Atherosclerosis of [place] artery of both lower extremities, with unspecified presence of clinical manifestation I70.203 ; Plantar wart B07.0 ; Tinea unguium B35.1 ; Pain in right toe(s) M79.674 ; Pain in left toe(s) M79.675 and Pain in right foot M79.671 [facility] [address] [address] 11/26/2023 Parag Kirk Left foot pain M79.6 72 ; Sprain of left foot, initial encounter S93.602A and Atherosclerosis of [place] artery of both lower extremities, with unspecified presence of clinical manifestation I70.[address] [address] 03/09/2024 Parag Kirk Atherosclerosis of [place] artery of both lower extremities, with unspecified presence of clinical manifestation I70.203 ; Plantar wart B07.0 ; Tinea unguium B35.1 ; Pain in right toe(s) M79.674 ; Pain in left toe(s) M79.675 and Pain in right foot M79.[address] [address] 06/08/2024 Parag Kirk Atherosclerosis of [place] artery of both lower extremities, with unspecified presence of clinical manifestation I70.203 ; Tinea unguium B35.1 ; Pain in right toe(s) M79.674 and Pain in left toe(s) M79.[address] [address] 09/14/2024 Parag Kirk Atherosclerosis of ili[place] artery of both lower extremities, with unspecified presence of clinical manifestation I70.203 ; Tinea unguium B35.1 ; Pain in right toe(s) M79.674 and Pain in left toe(s) M79.[address] [address] 11/18/2023 Parag Kirk [address] [address] 11/26/2023 Parag Kirk Assessments Encounter Date Diagnosis (ICD Code) Assessment Notes Treatment Notes Treatment Clinical Notes Section Notes 11/18/2023 Plantar wart (ICD-10 - B07.0) 11/18/2023 Atherosclerosis of [place] artery of both lower extremities, with unspecified presence of clinical manifestation (ICD-10 - I70.203) 11/26/2023 Left foot pain (ICD-10 - M79.672) 11/26/2023 Sprain of left foot, initial encounter (ICD-10 - S93.602A) 03/09/2024 Plantar wart (ICD-10 - B07.0) 03/09/2024 Atherosclerosis of [place] artery of both lower extremities, with unspecified presence of clinical manifestation (ICD-10 - I70.203) 06/08/2024 Tinea unguium (ICD-10 - B35.1) 06/08/2024 Atherosclerosis of [place] artery of both lower extremities, with unspecified presence of clinical manifestation (ICD-10 - I70.203) 09/14/2024 Tinea unguium (ICD-10 - B35.1) 09/14/2024 Atherosclerosis of [place] artery of both lower extremities, with unspecified presence of clinical manifestation (ICD-10 - I70.203) 09/14/2024 Pain in right toe(s) (ICD-10 - M79.674) 06/08/2024 Pain in right toe(s) (ICD-10 - M79.674) 03/09/2024 Tinea unguium (ICD-10 - B35.1) 11/26/2023 Atherosclerosis of [place] artery of both lower extremities, with unspecified presence of clinical manifestation (ICD-10 - I70.203) 11/18/2023 Tinea unguium (ICD-10 - B35.1) 11/18/2023 Pain in right toe(s) (ICD-10 - M79.674) 03/09/2024 Pain in right toe(s) (ICD-10 - M79.674) 06/08/2024 Pain in left toe(s) (ICD-10 - M79.675) 09/14/2024 Pain in left toe(s) (ICD-10 - M79.675) 03/09/2024 Pain in left toe(s) (ICD-10 - M79.675) 11/18/2023 Pain in left toe(s) (ICD-10 - M79.675) 11/18/2023 Pain in right foot (ICD-10 - M79.671) 03/09/2024 Pain in right foot (ICD-10 - M79.671) Plan Of Treatment Pending Test Test Name Order Date X ray : Foot, left 3V 11/26/2023 90488-OBOJOQZ NAIL, 6 OR MORE 03/09/2024 20776-VRRFIKV NAIL, 6 OR MORE 11/18/2023 58149-YTKQUVL NAIL, 6 OR MORE 06/08/2024 55595-SQXAWPZ NAIL, 6 OR MORE 01/14/2023 05041-FUMBLZB NAIL, 6 OR MORE 04/01/2023 04314-UNYEOQQ NAIL, 6 OR MORE 06/10/2023 52590-NQCVUDB NAIL, 6 OR MORE 08/26/2023 94594-PVERCFV NAIL, 6 OR MORE 12/18/2021 22113-DYVFKOC NAIL, 6 OR MORE 03/05/2022 81113-WJDYBHX NAIL, 6 OR MORE 05/21/2022 11890-BDIPMTR NAIL, 6 OR MORE 08/20/2022 90174-INEVLJQ NAIL, 6 OR MORE 10/01/2022 92201-DXPPDKT NAIL, 6 OR MORE 05/21/2016 82978-AOJHIVS NAIL, 6 OR MORE 07/23/2016 85474-EWFGVQT NAIL, 6 OR MORE 10/01/2016 12453-PJCDENE NAIL, 6 OR MORE 12/10/2016 14152-MFWOHEX NAIL, 6 OR MORE 02/11/2017 99201-YLTURXR NAIL, 6 OR MORE 04/22/2017 96396-SHJCKZJ NAIL, 6 OR MORE 10/07/2017 82653-NFIZSZU NAIL, 6 OR MORE 12/30/2017 90159-SBOKIUU NAIL, 6 OR MORE 03/31/2018 53614-JSLBQKJ NAIL, 6 OR MORE 06/30/2018 82010-JCJFAYH NAIL, 6 OR MORE 09/15/2018 22046-BWECZDB NAIL, 6 OR MORE 12/04/2018 66289-DEHMPIW NAIL, 6 OR MORE 02/12/2019 18626-WXHBZJI NAIL, 6 OR MORE 04/23/2019 89426-IIQXNZU NAIL, 6 OR MORE 07/06/2019 08180-QHBGPNV NAIL, 6 OR MORE 09/28/2021 32265-KXBVUDS NAIL, 6 OR MORE 09/14/2024 94785-Xiru Destruction, 1-14 09/28/2021 87843-Ehio Destruction, 1-07/06/2019 87171-Klxp Destruction, 03-0904/23/2019 70520-Ljef Destruction, 03-0902/12/2019 08243-Gick Destruction, 03-0912/04/2018 28326-Yfmb Destruction, 03-0909/15/2018 31498-Qevj Destruction, 03-0906/30/2018 30793-Kjcp Destruction, 03-0903/31/2018 36005-Njjl Destruction, 03-0912/30/2017 91371-Ctoj Destruction, 03-0907/08/2017 06678-Jruw Destruction, 03-0910/07/2017 71517-Yzzu Destruction, 03-0904/22/2017 15036-Xaik Destruction, 03-0902/11/2017 31584-Cmln Destruction, 03-0903/12/2016 63008-Xagc Destruction, 03-0912/10/2016 26421-Zptj Destruction, 03-0910/01/2016 46412-Bibe Destruction, 03-0905/21/2016 13249-Ydnb Destruction, 03-0907/23/2016 04545-Ekgh Destruction, 03-0910/01/2022 04714-Aibt Destruction, 03-0908/20/2022 97084-Ghsx Destruction, 03-0905/21/2022 61458-Zzkc Destruction, 03-0903/05/2022 92608-Igdn Destruction, 03-0912/18/2021 36883-Vctm Destruction, 03-0908/26/2023 97830-Fsdl Destruction, 03-0906/10/2023 91808-Jtjm Destruction, 03-0904/01/2023 74083-Oywo Destruction, 03-0901/14/2023 90758-Vewc Destruction, 03-0911/18/2023 34114-Bfgc Destruction, 03-0903/09/2024 33678-Ffwadimn Plate 05/21/2022 84887-Kqmqwdcq Plate 08/20/2022 81266-Iperfvka Plate 10/01/2022 94461-Vusrznzv Plate 12/10/2016 99807-XOHN SKIN LESIONS, OVER 4 09/29/19 22 28662-CTZU SKIN LESIONS, OVER 4 10/02/19 23 25717-TUKW SKIN LESIONS, OVER 4 08/21/19 73810-EIZQ SKIN LESIONS, OVER 4 05/22/19 42748-EGGR SKIN LESIONS, OVER 4 12/19/19 12557-YNPA SKIN LESIONS, OVER 4 03/05/19 30827-RKCX SKIN LESIONS, OVER 4 03/09/19 08934-GUDV SKIN LESIONS, OVER 4 11/18/19 47077-BJUH SKIN LESIONS, OVER 4 06/09/19 08195-IBCT SKIN LESIONS, OVER 4 01/15/20 99665-PZEJ SKIN LESIONS, OVER 4 04/01/19 52357-SLPR SKIN LESIONS, OVER 4 06/10/19 27251-HFWH SKIN LESIONS, OVER 4 08/26/19 66586-DWTU SKIN LESIONS, OVER 4 09/15/19 Next Appt Details Provider Name:Parag Kirk , 12/10/2024 11:00:00 AM, [address] [place] [address], [phone], Insurance Providers Payer Name Payer Address Payer Phone Subscriber Number Group Number Insured Name Patient Relationship to Insured Coverage Start Date Coverage End Date [facility] 65 Medicare Preferred [address] [place] [address] [id number] Pamela Marr Self - patient is the insured Medical (General) History Medical History History ICD Code Broken bones Chicken pox High blood pressure Measles Kidney disease stage lll Peripheral Artery Disease Hypertensive urgency A Fib Surgical History Surgery Date(Month/Year) Stent L leg 01/2022 Hospitalization History Reason Date(Month/Year) [facility] ER sent by PCP for cardiac Rehab Afib chaning BP 2 days 10/20-
[2024-09-29 11:15] LABS: MANUAL DIFF FLAG NO
[2024-09-29 11:32] LABS: Hematocrit 50.0 % (37.0-47.0); Hemoglobin 17.2 g/dl (12.0-16.0); Imm Gran Abs Auto 0.01 X10*3/uL (0.00-0.03); Imm Gran Pct Auto 0.2 % (0.0-0.4); Lymphocytes Absolute Auto 1.5 X10*3/uL (1.2-4.9); Mean Corpuscular HGB Conc 34.4 g/dl (31.0-35.0); Mean Corpuscular Hemoglobin 31.4 pg (27.0-33.0); Mean Corpuscular Volume 91.4 fL (80.0-98.0); NRBC Abs Auto 0.000 X10*3/uL (0.0-0.012); NRBC Pct Auto 0.0 /100WBC (0.0-0.2); Platelet Count 187 X10*3/uL (160-400); Red Blood Count 5.47 X10*6/uL (4.20-5.50); White Blood Count 5.8 X10*3/uL (4.8-10.8)
[2024-09-29 12:13] LABS: Alanine Aminotransferase 28 U/L (0-31); Albumin Level 4.4 g/dL (3.5-5.0); Alkaline Phosphatase 50 U/L (39-117); Anion Gap 10 (12-20); Aspartate Amino Transferase 38 U/L (5-31); Blood Urea Nitrogen 20 mg/dL (9-16); Calcium 9.6 mg/dL (8.4-10.2); Carbon Dioxide 34 mmol/L (22-29); Chloride 100 mmol/L (96-108); Cholesterol 190 mg/dL (<200); Estimated Glomerular Filt Rate 42; HDL Cholesterol 66 mg/dL (>40); Potassium 3.9 mmol/L (3.3-5.1); Sodium 140 mmol/L (135-145); Total Protein 7.4 g/dL (6.5-8.0); Triglycerides 96 mg/dL (<150)
[2024-09-29 13:03] LABS: Free T4 (Free Thyroxine) 1.07 ng/dL (0.71-1.85)
[2024-10-03 13:19] LABS: Vitamin D 25-OH, D2 <4 ng/mL; Vitamin D 25-OH, D3 35 ng/mL; Vitamin D 25-OH, Total 35 ng/mL (30-100)
== END 2024-09-29 07:48 | disposition home or self-care (01) ==
LOC: HO.10HDL 07:47
PROVIDERS: Visit Provider Internal Medicine
DX: Z13.0 Encounter for screening for diseases of the blood and blood-forming organs and certain disorders involving the immune mechanism (principal); M81.0 Age-related osteoporosis without current pathological fracture; I48.91 Unspecified atrial fibrillation; I10 Essential (primary) hypertension
CPT/HCPCS: 36415; 80053; 80061; 82306; 84439; 84443; 85025

== ENCOUNTER 2024-09-30 12:35 | Outpatient (AMB) | payer MEDICARE, SELFPAY ==
--- OUTSIDE RECORDS SUMMARY | 2024-09-30 12:40 | XMS_ITS | Patient Health Record ---
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 Name Role Phone Nini Tinoco Primary Care Provider Parag Harley Unavailable [phone] Allergies No Known Allergies Reason For Referral [...] atherosclerosis of arteries of lower limbs (disorder) ([id number] ) Atherosclerosis of [place] artery of both lower extremities, with unspecified presence of clinical manifestation (I70.203) Active confirmed Vital Signs Blood pressure diastolic 65 mm Hg 09/14/2024 Height 5ft 6in in 09/14/2024 Blood pressure systolic 128 mm Hg 09/14/2024 Weight 145 lbs 09/14/2024 BMI 23.4 kg/m2 09/14/2024 Procedures Procedure Date Ordered Date Performed Result Body Sit e 34976-UMYZXPK NAIL, 6 OR MORE 11/18/2023 N/A 09504-Inuy Destruction, 1-14 11/18/2023 N/A 51791-YRFF SKIN LESIONS, OVER 4 11/18/2023 N/A 19438-QUREWOG NAIL, 6 OR MORE 03/09/2024 N/A 14476-Abjm Destruction, 1-14 03/09/2024 N/A 60685-MXVN SKIN LESIONS, OVER 4 03/09/2024 N/A 77255-LLQDPNL NAIL, 6 OR MORE 06/08/2024 N/A 80720-UKQF SKIN LESIONS, OVER 4 06/08/2024 N/A 57781-JSHONGN NAIL, 6 OR MORE 09/14/2024 N/A 81210-FMHA SKIN LESIONS, OVER 4 09/14/2024 N/A Encounters Encounter Location Date Provider Diagnosis [facility] [place] [address] [place] [address] 11/18/2023 Parag Kirk Atherosclerosis of [place] artery of both lower extremities, with unspecified presence of clinical manifestation I70.203 ; Plantar wart B07.0 ; Tinea unguium B35.1 ; Pain in right toe(s) M79.674 ; Pain in left toe(s) M79.675 and Pain in right foot M79.671 [facility] [address] [address] 11/26/2023 Parag Kirk Left foot pain M79.6 72 ; Sprain of left foot, initial encounter S93.602A and Atherosclerosis of [place] artery of both lower extremities, with unspecified presence of clinical manifestation I70.[address] [address] 03/09/2024 Parag Kirk Atherosclerosis of [place] artery of both lower extremities, with unspecified presence of clinical manifestation I70.203 ; Plantar wart B07.0 ; Tinea unguium B35.1 ; Pain in right toe(s) M79.674 ; Pain in left toe(s) M79.675 and Pain in right foot M79.[address] [address] 06/08/2024 Parag Kirk Atherosclerosis of [place] artery of both lower extremities, with unspecified presence of clinical manifestation I70.203 ; Tinea unguium B35.1 ; Pain in right toe(s) M79.674 and Pain in left toe(s) M79.[address] [address] 09/14/2024 Parag Kirk Atherosclerosis of [place] artery of both lower extremities, with unspecified presence of clinical manifestation I70.203 ; Tinea unguium B35.1 ; Pain in right toe(s) M79.674 and Pain in left toe(s) M79.[address] [address] 11/18/2023 Parag Kirk [address] [address] 11/26/2023 Parag Kikr Assessments Encounter Date Diagnosis (ICD Code) Assessment Notes Treatment Notes Treatment Clinical Notes Section Notes 11/18/2023 Plantar wart (ICD-10 - B07.0) 11/18/2023 Atherosclerosis of [place] artery of both lower extremities, with unspecified presence of clinical manifestation (ICD-10 - I70.203) 11/26/2023 Left foot pain (ICD-10 - M79.672) 11/26/2023 Sprain of left foot, initial encounter (ICD-10 - S93.602A) 03/09/2024 Plantar wart (ICD-10 - B07.0) 03/09/2024 Atherosclerosis of [place] artery of both lower extremities, with unspecified presence of clinical manifestation (ICD-10 - I70.203) 06/08/2024 Tinea unguium (ICD-10 - B35.1) 06/08/2024 Atherosclerosis of [place] artery of both lower extremities, with unspecified presence of clinical manifestation (ICD-10 - I70.203) 09/14/2024 Tinea unguium (ICD-10 - B35.1) 09/14/2024 Atherosclerosis of [place] artery of both lower extremities, with unspecified presence of clinical manifestation (ICD-10 - I70.203) 09/14/2024 Pain in right toe(s) (ICD-10 - M79.674) 06/08/2024 Pain in right toe(s) (ICD-10 - M79.674) 03/09/2024 Tinea unguium (ICD-10 - B35.1) 11/26/2023 Atherosclerosis of [place] artery of both lower extremities, with unspecified [...] X ray : Foot, left 3V 11/26/2023 92541-NLNPAVE NAIL, 6 OR MORE 03/09/2024 58401-UCDDMHK NAIL, 6 OR MORE 11/18/2023 64069-QNUJWXX NAIL, 6 OR MORE 06/08/2024 33906-GSJOPXM NAIL, 6 OR MORE 01/14/2023 23430-VLCAPPF NAIL, 6 OR MORE 04/01/2023 02101-PGZHUJL NAIL, 6 OR MORE 06/10/2023 90024-QGTZUVD NAIL, 6 OR MORE 08/26/2023 14200-RFJVMRT NAIL, 6 OR MORE 12/18/2021 61408-WZZGMYX NAIL, 6 OR MORE 03/05/2022 51706-PVTNFTY NAIL, 6 OR MORE 05/21/2022 73526-XPDHOTJ NAIL, 6 OR MORE 08/20/2022 10321-KESTWWU NAIL, 6 OR MORE 10/01/2022 73644-DGQBKUR NAIL, 6 OR MORE 05/21/2016 27311-QCWKXUX NAIL, 6 OR MORE 07/23/2016 33188-OZRXSLV NAIL, 6 OR MORE 10/01/2016 21304-DIRCYUZ NAIL, 6 OR MORE 12/10/2016 91226-JREVOAZ NAIL, 6 OR MORE 02/11/2017 32547-HAWZHIW NAIL, 6 OR MORE 04/22/2017 30764-WPRZBWQ NAIL, 6 OR MORE 10/07/2017 25810-UKIUGEO NAIL, 6 OR MORE 12/30/2017 09848-NOCTFIV NAIL, 6 OR MORE 03/31/2018 80602-DLGJUMP NAIL, 6 OR MORE 06/30/2018 54722-IVXRYSG NAIL, 6 OR MORE 09/15/2018 96176-FFICPLR NAIL, 6 OR MORE 12/04/2018 44597-USZVLQG NAIL, 6 OR MORE 02/12/2019 39719-TPNAIIB NAIL, 6 OR MORE 04/23/2019 91487-KLXESTJ NAIL, 6 OR MORE 07/06/2019 42726-BDGZMTR NAIL, 6 OR MORE 09/28/2021 69388-OIRZBBK NAIL, 6 OR MORE 09/14/2024 43265-Mxwi Destruction, 1-14 09/28/2021 21241-Zwdt Destruction, 1-07/06/2019 97778-Vawn Destruction, 03-0904/23/2019 26566-Pdhv Destruction, 03-0902/12/2019 85856-Skbi Destruction, 03-0912/04/2018 32883-Bklc Destruction, 03-0909/15/2018 00277-Bnhs Destruction, 03-0906/30/2018 03398-Erfk Destruction, 03-0903/31/2018 15062-Sdvu Destruction, 03-0912/30/2017 82533-Merp Destruction, 03-0907/08/2017 91649-Xrpq Destruction, 03-0910/07/2017 25707-Juaa Destruction, 03-0904/22/2017 20534-Kgyu Destruction, 03-0902/11/2017 74870-Hfbg Destruction, 03-0903/12/2016 46847-Psvn Destruction, 03-0912/10/2016 72475-Fxqz Destruction, 03-0910/01/2016 13195-Blni Destruction, 03-0905/21/2016 41901-Cxne Destruction, 03-0907/23/2016 78169-Vlez Destruction, 03-0910/01/2022 72660-Mddi Destruction, 03-0908/20/2022 54658-Izcb Destruction, 03-0905/21/2022 28715-Atsn Destruction, 03-0903/05/2022 99813-Jlew Destruction, 03-0912/18/2021 25164-Dtev Destruction, 03-0908/26/2023 18412-Gcio Destruction, 03-0906/10/2023 34469-Cmqb Destruction, 03-0904/01/2023 57012-Udws Destruction, 03-0901/14/2023 48201-Cnky Destruction, 03-0911/18/2023 49749-Rcmt Destruction, 03-0903/09/2024 68148-Umyhfswd Plate 05/21/2022 88015-Vxwlgkas Plate 08/20/2022 41927-Qzuvnhsq Plate 10/01/2022 50412-Dhnkrkxn Plate 12/10/2016 91775-LUMH SKIN LESIONS, OVER 4 09/29/19 22 06810-BXOM SKIN LESIONS, OVER 4 10/02/19 23 20382-KSTQ SKIN LESIONS, OVER 4 08/21/19 65307-CLCN SKIN LESIONS, OVER 4 05/22/19 22359-XETY SKIN LESIONS, OVER 4 12/19/19 04512-VCCE SKIN LESIONS, OVER 4 03/05/19 49672-QXCH SKIN LESIONS, OVER 4 03/09/19 24940-KSSR SKIN LESIONS, OVER 4 11/18/19 90291-HLEX SKIN LESIONS, OVER 4 06/09/19 42847-GQUP SKIN LESIONS, OVER 4 01/15/20 48151-WXJT SKIN LESIONS, OVER 4 04/01/19 83724-XZMC SKIN LESIONS, OVER 4 06/10/19 33905-MBGI SKIN LESIONS, OVER 4 08/26/19 05279-ILYE SKIN LESIONS, OVER 4 09/15/19 Next Appt Details Provider Name:Parag Kirk , 12/10/2024 11:00:00 AM, [address] [place] [address], [phone], Insurance Providers Payer Name Payer Address Payer Phone Subscriber Number Group Number Insured Name Patient Relationship to Insured Coverage Start Date Coverage End Date [facility] 63 Medicare Preferred [address] [place] [address] [id number] Pamela Marr Self - patient is the insured Medical (General) History Medical History History ICD Code Broken bones Chicken pox High blood pressure Measles Kidney disease stage lll Peripheral Artery Disease Hypertensive urgency A Fib Surgical History Surgery Date(Month/Year) Stent L leg 01/2022 Hospitalization History Reason Date(Month/Year) [facility] ER sent by PCP for cardiac Rehab Afib chaning BP 2 days 10/20-
--- NOTE | 2024-09-30 12:58 | MHC.OFFVIS ---
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 Patient is a 74-year-old female, not a good historian although she says in 2022 she was referred to said emergency room when she had presented physical therapy was noted to be very elevated blood pressure. At that time she was told that she had atrial fibrillation. However reviewing echo from November 2021 which had also shown atrial fibrillation has a rhythm. Unclear as to the duration of atrial fibrillation whether it has been chronic persistent atrial fibrillation but seems like it. 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 She was started on carvedilol and Eliquis at that point time and since then she has been feeling symptoms of fatigue. She says she can do her yd work but much slower pace. She has symptoms of exertional fatigue and shortness of breath. She denies any orthopnea, PND, leg edema. She has cut down her dose of carvedilol as Eliquis because she thinks dose of the symptoms caused by the medications. She has no exertional chest pain. She has no lightheadedness, syncope. She has longstanding history of hypertension. No history of known stroke. [facility] Medical History Hypertension Osteoporosis Nicotine dependence, cigarettes, uncomplicated Family History Father Lung cancer Alcohol abuse Mother BP (high blood pressure) Social History Housing: House Alcohol intake: current Alcohol intake frequency: does not drink Patient Tobacco Use Status: Current everyday Tobacco user Cigarette Packs Per Day: 1 Cigarettes Per Day: 20 service: No Current occupational status: unemployed Cognitive needs: No Hearing needs: No Vision needs: Yes (rx glasses) Review of Systems Const Denies chills, Denies daytime sleepiness, Reports fatigue, Denies fever(s), Denies frequent falls, Denies poor appetite, Denies snoring, Denies stops breathing during sleep, Denies weakness, Denies weight gain and Denies weight loss Eyes Denies loss of vision ENT Denies dizziness and Denies hearing loss Card Denies chest pain, Denies claudication, Denies leg edema, Denies lightheadedness, Denies palpitations, Denies dyspnea, Denies dyspnea on exertion and Denies orthopnea Resp Denies cough, Denies excessive phlegm production, Denies dyspnea, Denies dyspnea on exertion, Denies snoring and Denies wheezing GI Denies abdominal pain, Denies hematochezia, Denies change in bowel habits, Denies nausea and Denies vomiting Denies urinary frequency and Denies dysuria Musc Denies arthralgias, Denies muscle weakness, Denies numbness and Denies other (frequent falls) Skin/Breast Denies nail changes and Denies rash Neuro Denies Abnormal speech present, Denies dizziness, Denies frequent falls, Denies loss of vision, Denies memory loss, Denies numbness and Denies weakness Psych Denies depression and Denies memory loss Endo Reports fatigue and Denies palpitations Rafael/Lymph Reports easy bruising and Reports other (anemia) Aller/Immun Denies wheezing Physical Exam Vital Signs: Last Vital Signs Pulse 78 09/30/24 12:59 BP 140/82 H 09/30/24 12:59 BMI result Body Mass Index 23.0 Const General: cooperative, comfortable, no acute distress, alert and awake Nutritional Appearance: average body habitus Orientation/consciousness: patient oriented x3 HEENT Head: Yes normocephalic and Yes atraumatic Neck Neck: Yes trachea midline, Yes supple and Yes no JVD Resp Effort & Inspection: normal respiratory effort Auscultation: clear to auscultation bilaterally Cardio Jugular venous distension: no JVD Rhythm: abnormal rhythm irregularly irregular Heart sounds: S1 normal heart sound present, S2 normal heart sound present, no click, no gallops, no murmurs and no rubs GI Auscultation: normal bowel sounds Skin General skin exam: no rashes or lesions noted Neuro General: patient oriented x3 and no focal motor deficits Speech: No Abnormal speech present Extrem General: Yes no clubbing, cyanosis or edema Office Procedures EKG Details: EKG shows atrial fibrillation with PVCs with voltage criteria for LVH with diffuse ST T wave changes suggestive of repolarization abnormality 10984-Eihktdcqkwggagmpt, Complete Assessment & Plan Assessment & Plan (1) Atrial fibrillation: Code(s): I48.91 - Unspecified atrial fibrillation Category: Medical Qualifiers: Atrial fibrillation type: paroxysmal Qualified Code(s): I48.0 - Paroxysmal atrial fibrillation Plan: Patient appears to have longstanding persistent atrial fibrillation with symptoms of fatigue and tiredness which are more likely related to atrial fibrillation rather than medication this was discussed with her. Last echocardiogram had shown significant left atrial enlargement as well as moderate LVH secondary to hypertensive heart disease. Less likely amyloidosis given significant voltage on her EKG. She has no other signs of fluid overload or congestive heart failure. We discussed about potential rhythm management although this may be difficult given her longstanding atrial fibrillation as well as significant left atrial enlargement. We discussed briefly about synchronized cardioversion she was all upset about it and she says she does not want to go much procedure. I told that this was not invasive procedure. She wants to think about it. However she is not currently a candidate she is taking inadequate dose of Eliquis. I have advised her to change her Eliquis to 5 mg b.i.d. to reduce her thromboembolic risk as she is not on appropriate dose at this point time. Once she has been on it for 4 weeks will pursue rhythm control approach depending on her echo findings. Advised to read update echocardiogram to evaluate LV systolic function as well as biatrial chamber size as well as secondary regurgitation. Will also increase carvedilol to 3.125 mg b.i.d. and hold her hydrochlorothiazide therapy. Discussed with her about management. Obtain a Holter monitor in 2 weeks to assess for adequate rate control. (2) Hypertensive heart disease: Code(s): I11.9 - Hypertensive heart disease without heart failure Category: Medical Plan: Hypertensive heart disease secondary to longstanding hypertension less likely infiltrative heart disease such as amyloidosis. Continue aggressive blood pressure control. No signs or symptoms of heart failure. Continue current therapy. Advised to monitor blood pressure at home maintain a log. Goal blood pressure less than 130/84. Low-salt diet was advised. Will follow up in the clinic in 4 weeks time, sooner p.r.n.. Thank you for allowing me to partake in her care Medications: New apixaban (Eliquis) 5 mg PO BID 180 tabs 3RF Changed From carvedilol 1.5625 mg (1/2 x 3.125 mg) PO BID 180 tabs 3RF To carvedilol 3.125 mg PO BID 180 tabs 3RF Discontinued apixaban (Eliquis) Discontinued Reason: Doctor's Order 2.5 mg PO BID 180 tabs 1RF Coding Level of Care Code New Pt Level 4 (07016) Complex EM visit Add On G2211 Diagnoses Paroxysmal atrial fibrillation I48.0 Atrial fibrillation type: paroxysmal Hypertensive heart disease I11.9 CPT Codes EKG - CPT: 34582-Bwyhvjnaspmmltkkk, Complete ([id number])
[2024-09-30 12:59] VITALS: BP 140/82; PULSE 78; BMI 23.0
== END 2024-09-30 13:31 | disposition home or self-care (01) ==
LOC: HO.HCS 12:36
PROVIDERS: PCP Internal Medicine; Visit Provider Internal Medicine Cardiovascular Disease
DX: I48.0 Paroxysmal atrial fibrillation (principal); I11.9 Hypertensive heart disease without heart failure; I49.3 Ventricular premature depolarization; R94.31 Abnormal electrocardiogram [ECG] [EKG]
CPT/HCPCS: 93010; 99214; G2211

== ENCOUNTER → 2024-09-30 12:35 | Outpatient (BNVA) | payer MEDICARE, SELFPAY | PROVIDERS: PCP Internal Medicine; Visit Provider Internal Medicine Cardiovascular Disease | DX: I10 Essential (primary) hypertension (principal); I48.0 Paroxysmal atrial fibrillation; I11.9 Hypertensive heart disease without heart failure | CPT/HCPCS: 93005; 99212 ==

== ENCOUNTER 2024-10-21 14:31 | Outpatient (AMB) | payer MEDICARE, SELFPAY ==
[2024-10-21 14:55] VITALS: BP 138/74; PULSE 69; TEMP 36.3; O2SAT 98; BMI 23.2
--- NOTE | 2024-10-21 14:55 | MHC.PC.OV ---
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 Accompanied by: Self / Same As Patient Allergies No Known Allergies Allergy (Verified 10/21/24 14:56) Tobacco use date assessed: 10/21/24 Fall risk assessment: No Falls in past year Last assessed Fall Risk: 10/21/24 Dental Screening Dental Screen Date: 06/10/24 Did you have a dental visit in the last 12 months?: Yes Did you have a dental problem in the last 6 months where you did not have access to dental care?: No HPI HPI Comments History of Present Illness Details The patient is a 74 year old female with a past medical history of hypertension, atrial fibrillation, PAD, CKD, anxiety, COPD presenting for follow up CV: Now following with cardiology, Dr Anderson. On amlodipine 5mg daily, coreg 3.125 bid, eliquis 5 mg twice daily. Has afib with RVR, hypertension hospitalization in 2021. Denies chest pain, palpitations. PAD h/o SFA stent, has not been following up with vascular COPD: no meds Declines mammo. Last 2021 Decline colonoscopy, cologuard ROS CONSTITUTIONAL: Denies weight loss, fever and chills. HEENT: Denies changes in vision and hearing. RESPIRATORY: Denies SOB and cough. CV: Denies palpitations and CP GI: Denies abdominal pain, nausea, vomiting and diarrhea. : Denies dysuria and urinary frequency. MSK: Denies new myalgia and joint pain. SKIN: Denies rash and pruritus. NEUROLOGICAL: Denies headache PSYCHIATRIC: Denies recent changes in mood. PHYSICAL EXAM: GENERAL: Alert and oriented x 3. NAD EYES: EOMI. Anicteric. HENT: Moist mucous membranes. No scleral icterus. No cervical lymphadenopathy. LUNGS: Clear to auscultation bilaterally. CARDIOVASCULAR: Regular rate and rhythm. No murmur. No JVD. ABDOMEN: Soft, non-tender +bs EXTREMITIES: No edema. Non-tender. SKIN: No rashes or lesions. Warm. NEUROLOGIC: No focal neurological deficits. CN II-XII grossly intact PSYCHIATRIC: Cooperative. Appropriate mood and affect [facility] Medical History Hypertension Osteoporosis Nicotine dependence, cigarettes, uncomplicated Family History Father Lung cancer Alcohol abuse Mother BP (high blood pressure) Social History Housing: House Alcohol intake: current Alcohol intake frequency: does not drink Patient Tobacco Use Status: Current everyday Tobacco user Cigarette Packs Per Day: 1 Cigarettes Per Day: 20 e-Cigarette/Vaping Use: Currently Using service: No Current occupational status: unemployed Cognitive needs: No Hearing needs: No Vision needs: Yes (rx glasses) Questionnaire PHQ-9 Over the last 2 weeks, how often have you been bothered by any of the following problems? 1. Little interest or pleasure in doing things: not at all 2. Feeling down, depressed, or hopeless: not at all 3. Trouble falling or staying asleep, or sleeping too much: not at all 4. Feeling tired or having little energy: not at all 5. Poor appetite or overeating: not at all 6. Feeling bad about yourself - or that you are a failure or have let yourself or your family down: not at all 7. Trouble concentrating on things, such as reading the newspaper or watching television: not at all 8. Moving or speaking so slowly that other people could have noticed. Or the opposite - being so fidgety or restless that you have been moving around a lot more than usual: not at all 9. Thoughts that you would be better off or of hurting yourself in some way: not at all Total score: 0 Source: Developed by Drs. Mina Cody, Buffy Davis, Louie Puente and colleagues, with an educational blaine from [employer]. Thrive Questionnaire Date Thrive assessed: 10/21/24 I am a: Patient Within the past 12 months, did the food you bought not last and you didn't have the money to get more?: Never true Within the past 12 months, did you worry whether your food would run out before you got money to buy more?: Never true Do you have trouble paying for medicines?: No Do you have trouble getting transportation to medical appointments?: No Do you have trouble paying your heating and electricity bill?: No Do you have trouble taking care of your child, family member or friend?: No Do you have trouble with day-to-day activities such as bathing, preparing meals, shopping, managing finances, etc.?: No Are you currently unemployed and looking for a job?: No Are you interested in more education?: No THRIVE Score: 0 AUDIT C Alcohol Use Questionnaire (AUDIT-C) 1. How often do you have a drink containing alcohol?: Never 3. How often do you have six or more drinks on one occasion?: Never Total Score: 0 LESA-7 AMB Questionnaire LESA-7 Date LESA - 7 assessed: 10/21/24 Feeling nervous, anxious, or on edge: 0 = Not at all Not being able to stop or control worryin = Not at all Worrying too much about different things: 0 = Not at all Trouble relaxin = Not at all Being so restless that it is hard to sit still: 0 = Not at all Becoming easily annoyed or irritable: 0 = Not at all Feeling afraid as if something awful might happen: 0 = Not at all Total LESA-7 score (0-4 normal; 5-9 mild; 10-14 moderate; 15-21 severe): 0 Source: Developed by Drs. Mina Cody, Buffy Davis, Louie Puente and colleagues, with an educational blaine from [employer]. Physical exam (Primary Care) Vital Signs: Last Vital Signs Temp 97.3 F 10/21/24 14:55 Pulse 69 10/21/24 14:55 BP 138/74 10/21/24 14:55 Pulse Ox 98 10/21/24 14:55 Oxygen Delivery Method Room Air 10/21/24 14:55 BMI result Body Mass Index 23.2 Tobacco/Smoking Status: Tobacco use Status Tobacco use date assessed 10/21/24 10/21/24 15:01 Patient Tobacco Use Status Current everyday Tobacco 10/21/24 15:01 e-Cigarette/Vaping Use Currently Using 10/21/24 15:01 PHQ-9: PHQ-9 Score PHQ-9: Total score 0 08/28/25 15:06 Thrive Assessment: Date of Thrive Assessment Date Thrive assessed 10/21/24 10/21/24 15:01 Coding Level of Care Code Est Pt Level 3 (41335) Diagnoses Primary hypertension I10 Hypertension type: primary hypertension Osteoporosis, unspecified osteoporosis type, unspecified pathological fracture presence M81.0 Osteoporosis type: unspecified Presence of current pathological fracture: unspecified Nicotine dependence, cigarettes, uncomplicated F17.210 Assessment & Plan Assessment & Plan (1) Hypertension: Code(s): I10 - Essential (primary) hypertension Category: Medical Qualifiers: Hypertension type: primary hypertension Qualified Code(s): I10 - Essential (primary) hypertension (2) Osteoporosis: Comment: (Bone Dexa Lumbar T-score: -3.1 on 11/14/21) Code(s): M81.0 - Age-related osteoporosis without current pathological fracture Category: Medical Qualifiers: Osteoporosis type: unspecified Presence of current pathological fracture: unspecified Qualified Code(s): M81.0 - Age-related osteoporosis without current pathological fracture (3) Nicotine dependence, cigarettes, uncomplicated: Comment: (current smoker, onset 14yo, 1ppd x 58yrs, 50pyh) Code(s): F17.210 - Nicotine dependence, cigarettes, uncomplicated Category: Medical Plan 74 year old for follow up CV-she is established with cardiology now. She has upcoming echocardiogram. She has follow up with cardiology scheduled She can follow up in six months. Nicotine dependence-precontemplative. Information provided
--- OUTSIDE RECORDS SUMMARY | 2024-10-21 15:11 | XMS_ITS | Patient Health Record ---
[facility] Organization [facility] Address [address] 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 Role Phone Nini Tinoco Primary Care Provider Parag Harley Unavailable [phone] Allergies No Known Allergies Reason For Referral [...] atherosclerosis of arteries of lower limbs (disorder) ([id number] ) Atherosclerosis of [place] artery of both lower extremities, with unspecified presence of clinical manifestation (I70.203) Active confirmed Vital Signs Blood pressure diastolic 65 mm Hg 09/14/2024 Height 5ft 6in in 09/14/2024 Blood pressure systolic 128 mm Hg 09/14/2024 Weight 145 lbs 09/14/2024 BMI 23.4 kg/m2 09/14/2024 Procedures Procedure Date Ordered Date Performed Result Body Sit e 18613-VTTFHXV NAIL, 6 OR MORE 11/18/2023 N/A 01118-Ewsf Destruction, 1-14 11/18/2023 N/A 09734-MFIE SKIN LESIONS, OVER 4 11/18/2023 N/A 56847-ZEIGZCW NAIL, 6 OR MORE 03/09/2024 N/A 38450-Eprc Destruction, 1-14 03/09/2024 N/A 21992-PSAU SKIN LESIONS, OVER 4 03/09/2024 N/A 26724-NAQEOGX NAIL, 6 OR MORE 06/08/2024 N/A 83893-EXIF SKIN LESIONS, OVER 4 06/08/2024 N/A 05776-KDABHWN NAIL, 6 OR MORE 09/14/2024 N/A 48976-AZYX SKIN LESIONS, OVER 4 09/14/2024 N/A Encounters Encounter Location Date Provider Diagnosis [facility] [address] [place] [address] 11/18/2023 Parag Kirk Atherosclerosis of [place] artery of both lower extremities, with unspecified presence of clinical manifestation I70.203 ; Plantar wart B07.0 ; Tinea unguium B35.1 ; Pain in right toe(s) M79.674 ; Pain in left toe(s) M79.675 and Pain in right foot M79.671 [facility] [address] [address] 11/26/2023 Parag Kirk Left foot pain M79.6 72 ; Sprain of left foot, initial encounter S93.602A and Atherosclerosis of [place] artery of both lower extremities, with unspecified presence of clinical manifestation I70.[address] [address] 03/09/2024 Parag Kirk Atherosclerosis of [place] artery of both lower extremities, with unspecified presence of clinical manifestation I70.203 ; Plantar wart B07.0 ; Tinea unguium B35.1 ; Pain in right toe(s) M79.674 ; Pain in left toe(s) M79.675 and Pain in right foot M79.[address] [address] 06/08/2024 Parag Kirk Atherosclerosis of [place] artery of both lower extremities, with unspecified presence of clinical manifestation I70.203 ; Tinea unguium B35.1 ; Pain in right toe(s) M79.674 and Pain in left toe(s) M79.[address] [address] 09/14/2024 Parag Kirk Atherosclerosis of [place] artery of both lower extremities, with unspecified presence of clinical manifestation I70.203 ; Tinea unguium B35.1 ; Pain in right toe(s) M79.674 and Pain in left toe(s) M79.[address] [address] 11/18/2023 Parag Kirk [address] [address] 11/26/2023 Parag Kirk Assessments Encounter Date Diagnosis (ICD Code) Assessment Notes Treatment Notes Treatment Clinical Notes Section Notes 11/18/2023 Plantar wart (ICD-10 - B07.0) 11/18/2023 Atherosclerosis of [place] artery of both lower extremities, with unspecified presence of clinical manifestation (ICD-10 - I70.203) 11/26/2023 Left foot pain (ICD-10 - M79.672) 11/26/2023 Sprain of left foot, initial encounter (ICD-10 - S93.602A) 03/09/2024 Plantar wart (ICD-10 - B07.0) 03/09/2024 Atherosclerosis of [place] artery of both lower extremities, with unspecified presence of clinical manifestation (ICD-10 - I70.203) 06/08/2024 Tinea unguium (ICD-10 - B35.1) 06/08/2024 Atherosclerosis of [place] artery of both lower extremities, with unspecified presence of clinical manifestation (ICD-10 - I70.203) 09/14/2024 Tinea unguium (ICD-10 - B35.1) 09/14/2024 Atherosclerosis of [place] artery of both lower extremities, with unspecified presence of clinical manifestation (ICD-10 - I70.203) 09/14/2024 Pain in right toe(s) (ICD-10 - M79.674) 06/08/2024 Pain in right toe(s) (ICD-10 - M79.674) 03/09/2024 Tinea unguium (ICD-10 - B35.1) 11/26/2023 Atherosclerosis of [place] artery of both lower extremities, with unspecified [...] X ray : Foot, left 3V 11/26/2023 77980-LLRJGHN NAIL, 6 OR MORE 03/09/2024 76501-AUJLYCS NAIL, 6 OR MORE 11/18/2023 65755-HKURSNJ NAIL, 6 OR MORE 06/08/2024 19769-RDANGJZ NAIL, 6 OR MORE 01/14/2023 64816-NLPKNLK NAIL, 6 OR MORE 04/01/2023 46672-RYPAYSW NAIL, 6 OR MORE 06/10/2023 47203-KGWIHQW NAIL, 6 OR MORE 08/26/2023 40414-VSCCFOT NAIL, 6 OR MORE 12/18/2021 33312-MJSRFGQ NAIL, 6 OR MORE 03/05/2022 60024-TCQDHAM NAIL, 6 OR MORE 05/21/2022 85948-RSGNOHW NAIL, 6 OR MORE 08/20/2022 95728-STXWPYJ NAIL, 6 OR MORE 10/01/2022 62369-YISKGAZ NAIL, 6 OR MORE 05/21/2016 45328-EUQURDA NAIL, 6 OR MORE 07/23/2016 95627-GPKPSTL NAIL, 6 OR MORE 10/01/2016 49258-AWASSMU NAIL, 6 OR MORE 12/10/2016 22341-ENQWNEK NAIL, 6 OR MORE 02/11/2017 40930-HACYKQK NAIL, 6 OR MORE 04/22/2017 87497-RPZALSH NAIL, 6 OR MORE 10/07/2017 43552-XNEDUVF NAIL, 6 OR MORE 12/30/2017 97074-GGDPFBG NAIL, 6 OR MORE 03/31/2018 56206-LLEEPLL NAIL, 6 OR MORE 06/30/2018 56712-TERLUZL NAIL, 6 OR MORE 09/15/2018 91520-VRQXCIK NAIL, 6 OR MORE 12/04/2018 60858-MROSRVA NAIL, 6 OR MORE 02/12/2019 68866-VJIDGRU NAIL, 6 OR MORE 04/23/2019 89702-ZLJNCNC NAIL, 6 OR MORE 07/06/2019 88856-HKVHXHH NAIL, 6 OR MORE 09/28/2021 45549-ZIQGBIJ NAIL, 6 OR MORE 09/14/2024 62890-Ckmf Destruction, 1-14 09/28/2021 18160-Jogl Destruction, 1-07/06/2019 38994-Hvtn Destruction, 03-0904/23/2019 08227-Uywy Destruction, 03-0902/12/2019 12046-Glbh Destruction, 03-0912/04/2018 60459-Awrn Destruction, 03-0909/15/2018 87122-Kyue Destruction, 03-0906/30/2018 06528-Xnia Destruction, 03-0903/31/2018 07336-Xwpr Destruction, 03-0912/30/2017 41736-Bsxn Destruction, 03-0907/08/2017 68755-Raxp Destruction, 03-0910/07/2017 38461-Nghx Destruction, 03-0904/22/2017 29433-Gotc Destruction, 03-0902/11/2017 59088-Gzck Destruction, 03-0903/12/2016 71915-Ewgx Destruction, 03-0912/10/2016 34231-Exka Destruction, 03-0910/01/2016 47356-Rfgv Destruction, 03-0905/21/2016 91870-Upqy Destruction, 03-0907/23/2016 44128-Bpeo Destruction, 03-0910/01/2022 37279-Ixdf Destruction, 03-0908/20/2022 06664-Athy Destruction, 03-0905/21/2022 77770-Zeii Destruction, 03-0903/05/2022 63382-Akyr Destruction, 03-0912/18/2021 14475-Agsb Destruction, 03-0908/26/2023 55960-Pivq Destruction, 03-0906/10/2023 88352-Nfpo Destruction, 03-0904/01/2023 48315-Qhsc Destruction, 03-0901/14/2023 35579-Kdsv Destruction, 03-0911/18/2023 92670-Fdsp Destruction, 03-0903/09/2024 98853-Pevpcvdd Plate 05/21/2022 59538-Rgkgcdna Plate 08/20/2022 49069-Vzgpinpf Plate 10/01/2022 14268-Iwzvczut Plate 12/10/2016 72606-WOAW SKIN LESIONS, OVER 4 09/29/19 22 09595-DPHF SKIN LESIONS, OVER 4 10/02/19 23 14001-GNFK SKIN LESIONS, OVER 4 08/21/19 41565-LYPS SKIN LESIONS, OVER 4 05/22/19 29873-AKFB SKIN LESIONS, OVER 4 12/19/19 73473-EIOI SKIN LESIONS, OVER 4 03/05/19 21267-GPKW SKIN LESIONS, OVER 4 03/09/19 54062-ASRA SKIN LESIONS, OVER 4 11/18/19 39132-AZTU SKIN LESIONS, OVER 4 06/09/19 74495-HJUR SKIN LESIONS, OVER 4 01/15/20 90877-LILO SKIN LESIONS, OVER 4 04/01/19 00748-SOIA SKIN LESIONS, OVER 4 06/10/19 03934-IYTE SKIN LESIONS, OVER 4 08/26/19 70297-TXBK SKIN LESIONS, OVER 4 09/15/19 Next Appt Details Provider Name:Parag Kirk , 12/10/2024 11:00:00 AM, [address] [place] [address], [phone], Insurance Providers Payer Name Payer Address Payer Phone Subscriber Number Group Number Insured Name Patient Relationship to Insured Coverage Start Date Coverage End Date [facility] 65 Medicare Preferred [address] [place] [address] [phone] [id number] Pamela Marr Self - patient is the insured Medical (General) History Medical History History ICD Code Broken bones Chicken pox High blood pressure Measles Kidney disease stage lll Peripheral Artery Disease Hypertensive urgency A Fib Surgical History Surgery Date(Month/Year) Stent L leg 01/2022 Hospitalization History Reason Date(Month/Year) [facility] ER sent by PCP for cardiac Rehab Afib chaning BP 2 days 10/20-
== END 2024-10-21 15:20 | disposition home or self-care (01) ==
LOC: HO.HMCHD 14:32
PROVIDERS: PCP Internal Medicine; Visit Provider Internal Medicine
DX: I10 Essential (primary) hypertension (principal); M81.0 Age-related osteoporosis without current pathological fracture; F17.210 Nicotine dependence, cigarettes, uncomplicated

== ENCOUNTER → 2024-10-21 14:31 | Outpatient (BNVA) | payer MEDICARE, SELFPAY | PROVIDERS: PCP Internal Medicine; Visit Provider Internal Medicine | DX: I12.9 Hypertensive chronic kidney disease with stage 1 through stage 4 chronic kidney disease, or unspecified chronic kidney disease (principal); N18.9 Chronic kidney disease, unspecified; M81.0 Age-related osteoporosis without current pathological fracture; F17.210 Nicotine dependence, cigarettes, uncomplicated; I48.91 Unspecified atrial fibrillation; J44.9 Chronic obstructive pulmonary disease, unspecified; Z13.39 Encounter for screening examination for other mental health and behavioral disorders; Z13.30 Encounter for screening examination for mental health and behavioral disorders, unspecified | CPT/HCPCS: 96127; 99212 ==

== ENCOUNTER → 2024-11-09 07:43 | Outpatient (REF) | payer MEDICARE, SELFPAY ==
--- OUTSIDE RECORDS SUMMARY | 2024-02-20 07:00 | XMS_ITS ---
Author Organization [facility] Address [address] [place] [address] Care Team Providers Care Security Researcher Name Role Phone Nini Tinoco Primary Care Provider Unavailabl Parag Otero Unavailable [phone] Encounters Encounter Location Date Provider Diagnosis [address] [address] 02/20/2024 Parag Kirk Plan Of Treatment Next Appt Details Provider Name:Parag Kirk , 12/10/2024 11:00:00 AM, [address] [place], [address], Progress Notes * Pamela QUINONEZ FDOB:1950 (74 yo F)Acc No.[id number]:02/20/2024 Progress Note Patient: Pamela BRADY Provider: Renzo Kirk DPM :1950 A ge:73 Y S ex:Female Date:02/20/2024 Address:[address] [place], [place] [id number] Pcp:Nini Tinoco Subjective: * Chief Complaints: * * Medical History: Objective: * Vitals: Assessment: Plan: * Treatment: * Images: * The named appointment provid er may or may not be the originator of this progress note, and it is not deemed complete until electronically signed by the appointment provider. Sign off status: Pending * Provider: Renzo Kirk DPM Date: 04/22/2023 Generated for Marie em/Dimitri/Mesfin on: 0 11/09/2024 07:45 AM EDT
--- OUTSIDE RECORDS SUMMARY | 2024-11-09 07:46 | XMS_ITS | Patient Health Record ---
Author Organization [facility] Address [address] [facility] [place] [place] [address] Care Team Providers Care Teacher Associate Name Role Phone Nini Tinoco Primary Care Provider Parag Harley Unavailable [phone] Allergies No Known Allergies Reason For Referral [...] atherosclerosis of arteries of lower limbs (disorder) ([id number] ) Atherosclerosis of ute artery of both lower extremities, with unspecified presence of clinical manifestation (I70.203) Active confirmed Vital Signs Blood pressure diastolic 65 mm Hg 09/14/2024 Height 5ft 6in in 09/14/2024 Blood pressure systolic 128 mm Hg 09/14/2024 Weight 145 lbs 09/14/2024 BMI 23.4 kg/m2 09/14/2024 Procedures Procedure Date Ordered Date Performed Result Body Sit e 92981-GYNLYYY NAIL, 6 OR MORE 11/18/2023 N/A 05436-Whvy Destruction, 1-14 11/18/2023 N/A 93264-ZSVV SKIN LESIONS, OVER 4 11/18/2023 N/A 41297-FIXENPT NAIL, 6 OR MORE 03/09/2024 N/A 33287-Gyef Destruction, 1-14 03/09/2024 N/A 39132-QQAJ SKIN LESIONS, OVER 4 03/09/2024 N/A 14341-ZICRKXJ NAIL, 6 OR MORE 06/08/2024 N/A 09788-CEJD SKIN LESIONS, OVER 4 06/08/2024 N/A 13339-IOBLTFX NAIL, 6 OR MORE 09/14/2024 N/A 17335-YLVT SKIN LESIONS, OVER 4 09/14/2024 N/A Encounters Encounter Location Date Provider Diagnosis [facility] [address] [place] [address] 11/18/2023 Parag Kirk Atherosclerosis of ute artery of both lower extremities, with unspecified presence of clinical manifestation I70.203 ; Plantar wart B07.0 ; Tinea unguium B35.1 ; Pain in right toe(s) M79.674 ; Pain in left toe(s) M79.675 and Pain in right foot M79.671 [facility] [address] [address] 11/26/2023 Parag Kirk Left foot pain M79.6 72 ; Sprain of left foot, initial encounter S93.602A and Atherosclerosis of ute artery of both lower extremities, with unspecified presence of clinical manifestation I70.[address] [address] 03/09/2024 Parag Kirk Atherosclerosis of ute artery of both lower extremities, with unspecified presence of clinical manifestation I70.203 ; Plantar wart B07.0 ; Tinea unguium B35.1 ; Pain in right toe(s) M79.674 ; Pain in left toe(s) M79.675 and Pain in right foot M79.[address] [address] 06/08/2024 Parag Kirk Atherosclerosis of ute artery of both lower extremities, with unspecified presence of clinical manifestation I70.203 ; Tinea unguium B35.1 ; Pain in right toe(s) M79.674 and Pain in left toe(s) M79.[address] [address] 09/14/2024 Parag Kirk Atherosclerosis of ute artery of both lower extremities, with unspecified presence of clinical manifestation I70.203 ; Tinea unguium B35.1 ; Pain in right toe(s) M79.674 and Pain in left toe(s) M79.[address] [address] 11/18/2023 Parag Kirk [address] [address] 11/26/2023 Parag Kirk Assessments Encounter Date Diagnosis (ICD Code) Assessment Notes Treatment Notes Treatment Clinical Notes Section Notes 11/18/2023 Plantar wart (ICD-10 - B07.0) 11/18/2023 Atherosclerosis of ute artery of both lower extremities, with unspecified presence of clinical manifestation (ICD-10 - I70.203) 03/09/2024 Plantar wart (ICD-10 - B07.0) 03/09/2024 Atherosclerosis of ute artery of both lower extremities, with unspecified presence of clinical manifestation (ICD-10 - I70.203) 11/26/2023 Left foot pain (ICD-10 - M79.672) 11/26/2023 Sprain of left foot, initial encounter (ICD-10 - S93.602A) 09/14/2024 Tinea unguium (ICD-10 - B35.1) 09/14/2024 Atherosclerosis of ute artery of both lower extremities, with unspecified presence of clinical manifestation (ICD-10 - I70.203) 06/08/2024 Tinea unguium (ICD-10 - B35.1) 06/08/2024 Atherosclerosis of ute artery of both lower extremities, with unspecified presence of clinical manifestation (ICD-10 - I70.203) 09/14/2024 Pain in right toe(s) (ICD-10 - M79.674) 06/08/2024 Pain in right toe(s) (ICD-10 - M79.674) 11/26/2023 Atherosclerosis of ute artery of both lower extremities, with unspecified presence of clinical manifestation (ICD-10 - I70.203) 03/09/2024 Tinea unguium (ICD-10 - B35.1) 11/18/2023 Tinea unguium (ICD-10 - B35.1) 11/18/2023 [...] X ray : Foot, left 3V 11/26/2023 44482-JTRSTYS NAIL, 6 OR MORE 03/09/2024 44400-AKVBEYM NAIL, 6 OR MORE 11/18/2023 31134-UENMUWE NAIL, 6 OR MORE 06/08/2024 93988-BJFYCYZ NAIL, 6 OR MORE 01/14/2023 12170-BKGMFHC NAIL, 6 OR MORE 04/01/2023 26116-URSVGPO NAIL, 6 OR MORE 06/10/2023 91886-UZPBGFL NAIL, 6 OR MORE 08/26/2023 54307-YAQZVNB NAIL, 6 OR MORE 12/18/2021 03121-YBVEOLF NAIL, 6 OR MORE 03/05/2022 72993-ROHQCFF NAIL, 6 OR MORE 05/21/2022 70381-VUNWSOW NAIL, 6 OR MORE 08/20/2022 99130-FZGDNHM NAIL, 6 OR MORE 10/01/2022 55657-BQQFAKI NAIL, 6 OR MORE 05/21/2016 00843-BYTUUCO NAIL, 6 OR MORE 07/23/2016 61402-QJLUPZY NAIL, 6 OR MORE 10/01/2016 51609-DVHSMSB NAIL, 6 OR MORE 12/10/2016 63652-GZJIHGE NAIL, 6 OR MORE 02/11/2017 98977-SXJABMT NAIL, 6 OR MORE 04/22/2017 46211-OHUGUZX NAIL, 6 OR MORE 10/07/2017 74298-IXVYBYJ NAIL, 6 OR MORE 12/30/2017 91256-CSVAIHS NAIL, 6 OR MORE 03/31/2018 59830-BHSYGYR NAIL, 6 OR MORE 06/30/2018 08749-DURYXAL NAIL, 6 OR MORE 09/15/2018 63181-RUAIHVY NAIL, 6 OR MORE 12/04/2018 40683-HIRRZGB NAIL, 6 OR MORE 02/12/2019 70896-YQEMZAJ NAIL, 6 OR MORE 04/23/2019 10506-EFEFLHE NAIL, 6 OR MORE 07/06/2019 71884-LQIEWLY NAIL, 6 OR MORE 09/28/2021 59697-YTEHBXG NAIL, 6 OR MORE 09/14/2024 35411-Iqvo Destruction, 1-14 09/28/2021 34697-Ymyk Destruction, 1-07/06/2019 94702-Jtyp Destruction, 03-0904/23/2019 38923-Ibiv Destruction, 03-0902/12/2019 21190-Zsul Destruction, 03-0912/04/2018 35044-Xsmj Destruction, 03-0909/15/2018 33988-Ugnl Destruction, 03-0906/30/2018 34101-Tgdb Destruction, 03-0903/31/2018 70908-Mxrg Destruction, 03-0912/30/2017 37757-Jxwe Destruction, 03-0907/08/2017 38361-Oyok Destruction, 03-0910/07/2017 52201-Matf Destruction, 03-0904/22/2017 48948-Hrwb Destruction, 03-0902/11/2017 30019-Mamm Destruction, 03-0903/12/2016 63345-Blet Destruction, 03-0912/10/2016 34719-Hrec Destruction, 03-0910/01/2016 63649-Fmqs Destruction, 03-0905/21/2016 77769-Iqyi Destruction, 03-0907/23/2016 78999-Bjaa Destruction, 03-0910/01/2022 56883-Jult Destruction, 03-0908/20/2022 44976-Yicf Destruction, 03-0905/21/2022 22561-Cpqk Destruction, 03-0903/05/2022 86079-Ooos Destruction, 03-0912/18/2021 54228-Imob Destruction, 03-0908/26/2023 85071-Vrqk Destruction, 03-0906/10/2023 47566-Dvel Destruction, 03-0904/01/2023 74331-Djgv Destruction, 03-0901/14/2023 89402-Mbwq Destruction, 03-0911/18/2023 30744-Nggb Destruction, 03-0903/09/2024 71845-Qnwbidtr Plate 05/21/2022 70389-Bhndtqru Plate 08/20/2022 93490-Pxcudrso Plate 10/01/2022 16998-Agfhfean Plate 12/10/2016 61172-RBMG SKIN LESIONS, OVER 4 09/29/19 22 63017-OEVS SKIN LESIONS, OVER 4 10/02/19 23 87897-GSNH SKIN LESIONS, OVER 4 08/21/19 66087-RBRU SKIN LESIONS, OVER 4 05/22/19 72038-ADEX SKIN LESIONS, OVER 4 12/19/19 47042-ASAT SKIN LESIONS, OVER 4 03/05/19 32104-HNOF SKIN LESIONS, OVER 4 03/09/19 58066-IIKK SKIN LESIONS, OVER 4 11/18/19 68448-ANYB SKIN LESIONS, OVER 4 06/09/19 84078-YFVH SKIN LESIONS, OVER 4 01/15/20 36712-JOAD SKIN LESIONS, OVER 4 04/01/19 21653-SNTU SKIN LESIONS, OVER 4 06/10/19 63731-RDPC SKIN LESIONS, OVER 4 08/26/19 35083-VYYF SKIN LESIONS, OVER 4 09/15/19 Next Appt Details Provider Name:Parag Kirk , 12/10/2024 11:00:00 AM, [address] [place] [address], [phone], Insurance Providers Payer Name Payer Address Payer Phone Subscriber Number Group Number Insured Name Patient Relationship to Insured Coverage Start Date Coverage End Date [facility] 65 Medicare Preferred [address] [place] [address] [phone] [id number] Pamela Marr Self - patient is the insured Medical (General) History Medical History History ICD Code Broken bones Chicken pox High blood pressure Measles Kidney disease stage lll Peripheral Artery Disease Hypertensive urgency A Fib Surgical History Surgery Date(Month/Year) Stent L leg 01/2022 Hospitalization History Reason Date(Month/Year) [facility] ER sent by PCP for cardiac Rehab Afib chaning BP 2 days 10/20-
--- NOTE | 2024-11-09 07:48 | HM_ITS ---
* Total monitoring time 2 days. * Underlying rhythm is atrial fibrillation with an average rate of 86/Min. * Frequent ventricular ectopy with a burden of 4.3%. Rare couplets, triplets. 6 brief runs. Longest 6 beats. * No significant pauses or high-grade AV blocks. * No patient markers or diary events. MTDD
--- NOTE | 2024-11-09 07:48 | CA_ITS ---
Transthoracic Echocardiogram Patient (Last, First, Middle): Pamela Marr F Gender: F Date of : 1950 Age: 74 Procedure Date: 11/09/2024 Procedure Type: Transthoracic Echocardiogram Location: OP Height: 165.1 cm Weight: 63.5 kg BSA: 1.70 m2 Heart Rate: bpm BP: 118 / 60 mmHg Turbogenerator Operator: Referring MD: Magdiel Anderson MD Symptoms: I48.0 - Paroxysmal atrial fibrillation Study Quality: Adequate ECG Rhythm: Atrial Fibrillation Conclusions: - The left ventricular systolic function is normal. The calculated ejection fraction is 56% by biplane method. - Evidence suggests grade III (severe) diastolic dysfunction. - There is severe septal and severe basal asymmetric hypertrophy. (max septal thickness 2.1cm). - No obvious valvular pathology seen on this study. - Mild pulmonary hypertension is present. - If clinically indicated, consider cardiac MRI to evaluate further for hypertrophic cardiomyopathy. Findings Left Ventricle Normal left ventricular cavity size. There is moderately increased left ventricular wall thickness. The left ventricular systolic function is normal. The calculated ejection fraction is 56% by biplane method. There is no evidence of regional wall motion abnormalities. Evidence suggests grade III (severe) diastolic dysfunction. There is severe septal and severe basal asymmetric hypertrophy. (max septal thickness 2.1cm). LV peak GLS -19.6%. Right Ventricle Normal right ventricular cavity size. There is low normal right ventricular systolic function. Atria The left atrium is severely dilated. The right atrium is moderately dilated. Aortic Valve There is a normal trileaflet aortic valve. There is no aortic valve stenosis. There is no aortic valve regurgitation. Mitral Valve There is mild mitral annular calcification. There is trace mitral valve regurgitation. There is no mitral valve stenosis. Pulmonic Valve There is trace pulmonic valve regurgitation. Tricuspid Valve There is mild tricuspid valve regurgitation. Mild pulmonary hypertension is present. Great Vessels The asc aorta is normal in size. Venous The inferior vena cava is normal in size and collapses greater than 50% with inspiration. Pericardium/Pleural There is no evidence of pericardial effusion. Prior Study Comparison Changes noted compared to prior study dated: 11/29/2021. Recommendations, Care & Conclusions No obvious valvular pathology seen on this study. Measurements 2D Linear Measurements IVSd: 2.14 0.6-0.9/0.6-1.0 cm LVIDd: 3.90 3.9-5.3/4.2-5.9 cm LVIDs: 2.50 2.0-3.6 cm LVPWd: 1.35 0.7-1.1 cm LA Diam: 4.33 2.7-3.8/3.0-4.0 cm LAIDs Index: 2.52 1.5-2.3 cm/m2 LV Mass: 293.00 67-162/88-224 g LVOT Diam: 2.27 3.0+(-)1.3 cm 2D Volumes RA ESV A/L: 39.60 19-21 ML/M2 2D Systolic Function EF 4C: 58.00 >55% EF 2C: 55.00 >55% EF BiP: 56.00 >55% Mitral Valve MV VTI: 0.22 MV Pk Haroon: 1.01 MV Pk Grad: 4.10 MV Mn Grad: 0.90 MV Pk E: 0.80 MV Decel Time: 216.00 E'Lateral: 7.99 E'Medial: 7.99 E/E' Med: 10.02 E/E' Lat: 10.02 Aortic Valve AoV Pk Haroon: 1.44 AoV VTI: 0.27 AoV Pk Grad: 8.30 Aov Mn Grad: 3.80 HAY Cont.VTI: 3.21 LVOT LVOT VTI: 0.22 LVOT Pk Grad: 3.50 LVOT Mn Grad: 1.70 LVOT Diam: 2.27 Diastolic Function MV Pk E: 0.80 E'Medial: 7.99 E/E' Med: 10.02 E' Laterial: 7.99 E/E' Lat: 10.02 Right Ventricle TAPSE (mm): 19.00 Tricuspid Valve TR Pk Haroon: 3.17 TR Pk Grad: 40.20 RA Press: 3.00 RVSP: 43.00 Great Vessels Aorta Sinus of Valsalva: 3.08 2.0-3.5 cm Ao Asc: 3.10 2.1-3.4 cm Pulmonary Valve Peak PV Grad: 2.60 PV Mn Grad: 1.40 Updated in Other Vendor System with Status of Final Sung San MD electronically signed on 11/11/2024 11:54:18 AM with status of Final
== END ==
LOC: HO.CARD 07:43
PROVIDERS: PCP Internal Medicine; Visit Provider Internal Medicine Cardiovascular Disease
DX: I48.0 Paroxysmal atrial fibrillation (principal)
CPT/HCPCS: 93242; 93306

== ENCOUNTER → 2024-11-09 07:48 | Outpatient (BNV) | payer MEDICARE, SELFPAY | PROVIDERS: PCP Internal Medicine; Visit Provider Internal Medicine | DX: I42.2 Other hypertrophic cardiomyopathy (principal) | CPT/HCPCS: 93306; 93356 ==

== ENCOUNTER 2024-11-15 14:17 | Outpatient (AMB) | payer MEDICARE, SELFPAY ==
[2024-11-15 14:22] VITALS: BP 124/72; PULSE 81; BMI 23.3
--- NOTE | 2024-11-15 14:22 | A.OFFVIS_ITS ---
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 The Holter monitor results are not available at the time of the visit. Today she reports she has been feeling well with no concerning symptoms. She tells me she does get short of breath with exertional activities but she relates this to her smoking. The symptom is not new or changing. She currently smokes just under a pack of cigarettes per day but tells me that she plans on stopping. No chest discomfort at rest or with activity. She does not get heart palpitations, no lightheadedness, presyncope, syncope. She is taking Eliquis 5 mg b.i.d. as prescribed however is asking again if she can go to 2.5 mg b.i.d.. Her primary concern is the cost as she is paying $400 dollars every 3 months and she lives on social security. He has not been having any bleeding issues. REPLACED BY [facility] Medical History Hypertension Osteoporosis Nicotine dependence, cigarettes, uncomplicated Family History Father Lung cancer Alcohol abuse Mother BP (high blood pressure) Social History Housing: House Alcohol intake: current Alcohol intake frequency: does not drink Patient Tobacco Use Status: Current everyday Tobacco user Cigarette Packs Per Day: 1 Cigarettes Per Day: 20 e-Cigarette/Vaping Use: Currently Using service: No Current occupational status: unemployed Cognitive needs: No Hearing needs: No Vision needs: Yes (rx glasses) Review of Systems Const All systems reviewed & are unremarkable except as noted in HPI and below ENT Denies dizziness Card Denies chest pain, Denies chest pain at rest, Denies chest pain with activity, Denies rapid heart rate, Denies pedal edema, Denies edema, Denies leg edema, Denies lightheadedness, Denies palpitations, Denies dyspnea, Reports dyspnea on exertion and Denies orthopnea Resp Denies cough, Denies dyspnea and Reports dyspnea on exertion GI Denies hematochezia and Denies change in stool character Musc Denies abnormal gait, Denies limited range of motion, Denies muscle cramps, Denies muscle weakness, Denies numbness, Denies radiating pain into limb, Denies stiffness and Denies tingling Neuro Denies abnormal gait, Denies dizziness, Denies numbness and Denies tingling Endo Denies palpitations Physical Exam Vital Signs: Last Vital Signs Pulse 81 11/15/24 14:22 BP 124/72 11/15/24 14:22 BMI result Body Mass Index 23.3 Const General: cooperative, healthy appearing, comfortable and no acute distress Orientation/consciousness: patient oriented x3 Neck Neck: Yes normal visual inspection Resp Effort & Inspection: normal respiratory effort Auscultation: clear to auscultation bilaterally, no rales, no rhonchi and no wheezes Cardio Rate: regular rate Rhythm: abnormal rhythm Heart sounds: S1 normal heart sound present, S2 normal heart sound present, no gallops, no murmurs and no rubs Neuro General: patient oriented x3 Extrem General: Yes normal to inspection, No no pedal edema and No calf tenderness Psych Appearance: grossly normal Mental Status: mental status grossly normal Speech and movement: Normal speech and movement present Assessment & Plan Assessment & Plan (1) Atrial fibrillation: Code(s): I48.91 - Unspecified atrial fibrillation Category: Medical Qualifiers: Atrial fibrillation type: paroxysmal Qualified Code(s): I48.0 - Paroxysmal atrial fibrillation Plan: Atrial fibrillation, likely persistent. Holter monitor has been completed however results are not available yet. Echocardiogram done 11/09/2024 shows EF 56%, grade 3 diastolic dysfunction, moderate LVH with severe septal and severe basal asymmetric hypertrophy, mild pulmonary hypertension. Pulse is irregular on examination today, clinically in atrial fibrillation. She is on carvedilol for rate control. She is on Eliquis for anticoagulation. Discussed use of Coumadin as a more cost effective approach to anticoagulation and she declines at this time. Full treatment plan to be determined once Holter monitor results are known. At this time continue current med management. (2) Hypertension: Code(s): I10 - Essential (primary) hypertension Category: Medical Qualifiers: Hypertension type: primary hypertension Qualified Code(s): I10 - Essential (primary) hypertension Plan: Blood pressure goal less than 130/80. Well controlled at this time. Continue carvedilol and amlodipine. (3) Nicotine dependence, cigarettes, uncomplicated: Comment: (current smoker, onset 14yo, 1ppd x 58yrs, 50pyh) Code(s): F17.210 - Nicotine dependence, cigarettes, uncomplicated Category: Medical Plan: Long-term smoker, currently less than 1 pack per day. Tells me that she plans on quitting. (4) Abnormal echocardiogram: Code(s): R93.1 - Abnormal findings on diagnostic imaging of heart and coronary circulation Category: Medical Plan: Echocardiogram as above with grade 3 diastolic dysfunction, moderate LVH, severe septal and severe basal asymmetric hypertrophy, max septal thickness 2.1 cm. Will check a cardiac MRI for further evaluation. She states she will be able to do an MRI as she does not have significant claustrophobia. BMP ordered. (5) Diastolic dysfunction: Code(s): I51.89 - Other ill-defined heart diseases Category: Medical Plan: Grade 3 diastolic dysfunction noted on echocardiogram. She does not appear fluid overloaded on examination. (6) LVH (left ventricular hypertrophy): Code(s): I51.7 - Cardiomegaly Category: Medical Plan: Moderate LVH on echocardiogram. Blood pressure currently well controlled. Plan I discussed with the patient the presence of atrial fibrillation and the importance of monitoring with a Holter monitor to determine its frequency and persistence. We reviewed the echocardiogram results, noting strong heart function but muscle thickness, and discussed the need for an MRI to evaluate the muscle tissue. The patient expressed concerns about the cost of Eliquis, and we discussed the possibility of switching to coumadin if necessary, considering the cost and monitoring requirements. We also talked about the importance of smoking cessation to improve cardiac health and reduce further complications. Orders: Orders MR cardiac morph fnct w/wo con Today I51.7 - Cardiomegaly, R93.1 - Abnormal findings on diagnostic imaging of heart and coronary circulation Basic Metabolic Panel Today I51.7 - Cardiomegaly Patient Instructions: - Continue taking carvedilol and Eliquis as prescribed. - Monitor for any changes in symptoms and report them. - Consider smoking cessation to improve heart health. - Follow up with audio experience expert in four months. Patient was informed and verbally consented to the use of an ambient scribe for clinic note documentation during this visit. Visit time spent on chart review, interview, assessment, orders, documentation. Coding Level of Care Code Est Pt Level 4 (75623) Complex EM visit Add On G2211 Diagnoses Paroxysmal atrial fibrillation I48.0 Atrial fibrillation type: paroxysmal Primary hypertension I10 Hypertension type: primary hypertension Nicotine dependence, cigarettes, uncomplicated F17.210 Abnormal echocardiogram R93.1 Diastolic dysfunction I51.89 LVH (left ventricular hypertrophy) I51.7 Time Spent (min) 36
== END 2024-11-15 15:28 | disposition home or self-care (01) ==
LOC: HO.HCS 14:18
PROVIDERS: PCP Internal Medicine; Visit Provider Nurse Practitioner Family
DX: I48.0 Paroxysmal atrial fibrillation (principal); I10 Essential (primary) hypertension; F17.210 Nicotine dependence, cigarettes, uncomplicated; R93.1 Abnormal findings on diagnostic imaging of heart and coronary circulation; I51.89 Other ill-defined heart diseases; I51.7 Cardiomegaly
CPT/HCPCS: 99214; G2211

== ENCOUNTER → 2024-11-15 14:17 | Outpatient (BNVA) | payer MEDICARE, SELFPAY | PROVIDERS: PCP Internal Medicine; Visit Provider Nurse Practitioner Family | DX: I10 Essential (primary) hypertension (principal); I48.91 Unspecified atrial fibrillation; F17.210 Nicotine dependence, cigarettes, uncomplicated; R93.1 Abnormal findings on diagnostic imaging of heart and coronary circulation; I51.89 Other ill-defined heart diseases; I51.7 Cardiomegaly | CPT/HCPCS: 99212 ==

== ENCOUNTER 2025-02-09 08:02 | Outpatient (AMB) | payer MEDICARE, SELFPAY ==
--- OUTSIDE RECORDS SUMMARY | 2024-02-20 06:00 | XMS_ITS ---
Author Organization [facility] Address [address] [place] [address] Care Team Providers Care Operations Plant Attendant Name Role Phone Maximus Rhodes Primary Care Provider Unavailabl Parag Otero Unavailable [phone] Encounters Encounter Location Date Provider Diagnosis [address] [address] 02/20/2024 Parag Kirk Plan Of Treatment Next Appt Details Provider Name:Parag Kirk , 04/05/2025 02:45:00 PM, [address] [place] [address], [phone], Progress Notes * Pamela QUINONEZ FDOB:1950 (74 yo F)Acc No.[id number]:02/20/2024 Progress Note Patient: Pamela BRADY Provider: Renzo Kirk DPM :1950 A ge:73 Y S ex:Female Date:02/20/2024 Address:[address] [place], [place] [id number] Pcp:Maximus Rhdoes Subjective: * Chief Complaints: * * Medical History: Objective: * Vitals: Assessment: Plan: * Treatment: * Images: * The named appointment provid er may or may not be the originator of this progress note, and it is not deemed complete until electronically signed by the appointment provider. Sign off status: Pending * Provider: Renzo Kirk DPM Date: 04/22/2023 Generated for Marie em/Momo on: 04/12/2024 08:06 AM EST
--- OUTSIDE RECORDS SUMMARY | 2025-02-04 05:00 | XMS_ITS ---
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 Name Role Phone BrettisabelMaximus Primary Care Provider Parag Harley Unavailable [phone] Allergies No Known Allergies REASON FOR VISIT Open sore Medications Medication SIG (Take, Route, Frequency, Duration) Notes Start Date End Date Status amLODIPine Besylate 5 MG TAKE 1 TABLET B Y MOUTH EVERY DAY Oral twice a day Active Vitamin D Active Lisinopril Not-Takin g Eliquis 5 MG 1 tablet Oral Twice a day Active Carvedilol 3.125 MG 1 tablet with food Oral Twice a day Active Ammonium Lactate 12 % 1 application to affected area Externally Twice a day; Duration: 30 days Not-Taking zzzCompression Stockings 20-30mm Hg . . .; Duration: . 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) Active confirmed Response to treatment, Nonapplicable Vital Signs Height 5ft 6in in 02/04/2025 Weight 143 lbs 02/04/2025 BMI 23.08 kg/m2 02/04/2025 Blood pressure systolic 126 mm Hg 02/05/20 25 Blood pressure diastolic 70 mm Hg 025 Encounters Encounter Location Date Provider Diagnosis [facility] [address] [address] 02/04/2025 Parag Kirk Ischemic ulcer of left heel, limited to breakdown of skin L97.421 Assessments Encounter Date Diagnosis (ICD Code) Assessment Notes Treatment Notes Treatment Clinical Notes Section Notes 02/04/2025 Ischemic ulcer of left heel, limited to breakdown of skin (ICD-10 - L97.421) Response to treatment, Nonapplicable Patient Educated with: WOUND CARE INSTRUCTIONS.p df (WOUND CARE INSTRUCTIONS.p df) Plan Of Treatment Medication Medication Name Sig Start Date Stop Date Notes Heel Lift Convoluted Foam Suspension Boot foam as directed wear topically to protect heel from pressure every day/night; Duration: 30 days 02/04/2025 Treatment Notes Assessment Notes Ischemic ulcer of left heel, limited to breakdown of skin Patient Educated with: WOUND CARE INSTRUCTIONS.pdf (WOUND CARE INSTRUCTIONS.pdf) Next Appt Details Follow Up: as scheduled, Armstrong son: Provider Name:Parag Kirk , 04/05/2025 02:45:00 PM, [address] [place], [address], Progress Notes * Pamela QUINONEZ FDOB:1950 (74 yo F)Acc No.[id number]:02/04/2025 Progress Note Patient: Berenice FRANCISCOPamela Kaufman Provider: Renzo Kirk DPM :1950 A ge:74 Y S ex:Female Date:02/04/2025 Address:[address] [place], [place] [id number] Pcp:Maximus Rhodes Subjective: * Chief Complaints: * O pen sore * HPI: S kin problems: Nature: O pen sore. Location: O utside, Bottom, Heel/Rearfoot, Left. Duration: s everal days. Onset/Cause: u nknown. Course: w orse. Aggravated by: a ny pressure. Treatments: n one. * ROS: G eneral/Constitutional: Nausea d enies. V omiting d enies. H naina Thirst d enies. L oss appetite d enies. C hills d enies. F atigue a dmits.?Fever d enies. N ight Sweats d enies. U nexplained weight loss d enies. U nexplained weight gain d enies. H EENTM: Dentures d enies. D izziness d enies. G lasses/contacts a dmits. R etinopathy d enies. B lurred/double vision d enies. T MJ?denies. D ischarge/drainage d enies. I mplants d enies. S ore throat d enies. D ental implants d enies. H enio of hearing d enies. D ifficulty chewing/swallowing/speaking d enies. N ose bleeds d enies. S ore mouth d enies. ? R espiratory: On Oxygen d enies. P neumonia/pleurisy d enies.?Bronchitis d enies. E mphysema d enies. C oughing a dmits. C ough blood?denies. S hortness of breath a dmits. W heezing d enies. C ardiovascular: Pacemaker d enies. M FROZEN PIE MAKER d enies. W PW d enies. C HF d enies. H eart attack d enies. S eptal defect d enies. R apid beat d enies. C hest pain d enies. A trial Fib. d enies. M urmur/Palpitations d enies. G astrointestinal: Hemorrhoids d enies. S tomach/Abdominal pain d enies. D ark blood stool d enies. I rritable bowel d enies. C onstipation d enies. D iarrhea d enies. H ematology: Swelling d enies. C lots d enies. V aricose Veins a dmits. B ruising a dmits, on anticoagulants. B leeding problem a dmits, on anticoagulants. G enitourinary: Blood urine d enies. F requent/Painfu/urination/bladder control d enies. K idney stones d enies. I nfection (UTI) d enies. N ephropathy d enies. s ex trans dis (STD) d enies. P rostate d enies. M usculoskeletal: Hammertoes a dmits. B unions a dmits. B ack Pain d enies. M uscle Cramps/ Resting d enies. M uscle cramps / walking d enies.?Generalized aches and pains d enies. W eakness a dmits. I nteg.: Dupree d enies. S cars d enies. C orns/calluses?admits. I ngrown nails a dmits. P ainful nails a dmits. O pen Sores d enies. R ashes d enies. N eurologic: Difficulty sleeping d enies. B rain disorder d enies. N umbness d enies. B alance trouble d enies. C onfusion d enies. F ainting/blackouts d enies. T ingling d enies. T remors d enies. * Medical History: * Surgical History: S tent L leg 01/2022 * Hospitalization/Major Diagno stic Procedure: B [facility] ER sent by PCP for cardiac Rehab Emmanuel luceroing BP 2 days 10/20- * Family History: M other: , diagnosed with Unspecified essential hypertension, Family history of arthritis. F ather: , diagnosed with Other malignant neoplasm of unspecified site. * Social History: T obacco Use: T obacco use other than smoking A re you an other tobacco user? N o Tobacco Control (Standard) T obacco use: C urrent smoker W hen did you start smoking? 0 05/27/1994 H ow often do you smoke cigarettes? E very day H ow many cigarettes a day do you smoke? 6 -10 H ow soon after you wake up do you smoke your first cigarette? 6 -30 minutes A re you interested in quitting? T hinking about quitting A dditional Findings: Tobacco user M oderate cigarette smoker (10-19 cigs/day) D rugs/Alcohol: D rugs H ave you used drugs other than those for medical reasons in the past 12 months? N o M iscellaneous: C affeine: yes, 3-4 cups per day. Children: no, none. Exercise: no. Marital status: single. 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 D rug/Alcohol: A CHLOE-C (Standard) D id you have a drink containing alcohol in the past year? N o P oints 0 I nterpretation N egative * Medications: T akingVitamin D amLODIPine Besylate 5 MG Tablet TAKE 1 TABLET BY MOUTH EVERY DAY Oral twice a day Carvedilol 3.125 MG Tablet 1 tablet with food Oral Twice a day Eliquis 5 MG Tablet 1 tablet Oral Twice a day Multivitamin , Notes to Pharmacist: only sometimesVicks Taking Vitamin D Taking amLODIPine Besylate 5 MG Tablet TAKE 1 TABLET BY MOUTH EVERY DAY Oral twice a day Taking Carvedilol 3.125 MG Tablet 1 tablet with food Oral Twice a day Taking Eliquis 5 MG Tablet 1 tablet Oral Twice a day Taking Multivitamin , Notes to Pharmacist: only sometimesTaking Vicks Not-Taking/PRNAspir-81 hydroCHLOROthiazide 25 MG Tablet 1 tablet Orally Once a day zzzCompression Stockings 20-30mm Hg 1 pair closed toe- knee high . . . Ammonium Lactate 12 % Cream 1 application to affected area Externally Twice a day Lisinopril Medication List reviewed and reconciled with the patientNot-Taking/PRN Aspir-81 Not-Taking/PRN hydroCHLOROthiazide 25 MG Tablet 1 tablet Orally Once a day Not-Taking/PRN zzzCompression Stockings 20-30mm Hg 1 pair closed toe- knee high . . . Not- Taking/PRN Ammonium Lactate 12 % Cream 1 application to affected area Externally Twice a day Not-Taking/PRN Lisinopril Medication List reviewed and reconciled with the patient * Allergies: N .K.D.A.yes[Allergies Verified] Objective: * Vitals: H t: 5ft 6in, Wt: 143, BMI: 23.08, Shoe size: 10W, BP: 126/70 mm Hg, Ht-cm: 167.64 cm, Wt-k.86 kg. * Examination: D ermatologic: SKIN FINDINGS: Skin exam reveals Keratotic lesion(s) located at, SUB MTH (s), 1, B/L , SUB MTH (s), 2, B/L ,SUB MTH (s),4,Right,Plantar, Heel(s), B/L. ULCER: LOCATION, Posterior,Lateral,HEEL, LEFT, SIZE, 4mm X 3mm X 2mm, BASE, granular, RIM, hyperkeratotic, UNDERMINING, absent, TRACKING, Full thickness breakdown of skin, DRAINAGE, serosanguineous, mild, NECROTIC TISSUE, loosely-adherent, yellow slough, MALODOR, absent, CALOR, absent, ERYTHEMA, absent, PAIN ON PALPATION, present. V ascular: DP PULSES (B): 0/4, B/L. PT PULSES (B): 0/4, B/L. CAPILLARY FILL TIME: delayed, all digits, B/L. TROPHIC CONDITION-TEXTURE/ELASTICITY/TURGOR/HAIR GROWTH (B):? decreased, fragile, thin, shiny skin, with sparse to absent hair growth, B/L. TEMPERTURE GRADIENT (C): decreased, cool to cool, proximal to distal, B/L. PIGMENTATION: mottled, B/L. EDEMA (C): a bsent, B/L. VARICOSITIES: present, moderate, nonpainful, B/L. NERY'S SIGN: a bsent , B/L. PALPABLE CORDS: a bsent , B/L. N ails: NAILS are: E longated, overgrown, dystrophic, lytic, greater than 3mm thick, discolored and friable with crumbly malodorous subungual debris, with pain on palpation, TA, T1, T3, T4, T6, T8, T9, all other nails not described with characteristics as possessing mycosis are elongated, overgrown, and dystrophic. N eurological: SENSORY: N eurological exam reveals intact sensorium, pain sensation normal, vibration sensation intact, pinprick sensation is normal in the lower extremities, Pt denies, anesthesia, burning, paresthesia, tingling, B/L. G eneral Examination: GENERAL APPEARANCE: Shae solanos a pleasant, alert, well nourished, well-developed, well hydrated individual, who demonstrates proper attention to hygiene/body habitus, and is in no acute distress, Pt serves as own historian for office visit today. ORIENTED: p lashonda, place, and time. Assessment: * Assessment: 1. I schemic ulcer of left heel, limited to breakdown of skin - L97.421 (Primary) ?Notes :Response to treatment, Nonapplicable Plan: * Treatment: * Procedure Codes: * Preventive Medicine: Counseling: T obacco use: Patient counseled on the dangers of smoking and urged to quit: 1 04/07/2024 D iscussion: - 14: Office or other outpatient visit for the [...] have encouraged the patient to call the office. C onsult: T he patient was counseled on the diagnosis, treatment options, and the need for a follow up with, Vascular Consult due to pedal risk of limb/life, Pt indicated understanding the recommendations and accepts this treatment plan. The patient would like to make their appt themself at Dr Reyes office. U zahraa: A detailed plan of care was reviewed with the patient. We emphasized the fact that the patient takes on an active participating role in the treatment process and emphasized to them that they are an included, valued, and important member of the wound healing team in order to reach an expedient successful outcome. The patient agreed to follow their medically recommended diet while increasing their protein intake if safely able to do so, maintain proper bodily hydration, abide by weight-bearing restrictions at all times, quit all current smoking habits if any, and diligently follow any/all dressing change instructions. It was clearly made known to the patient that if they fail to do their part, they will likely extend their course of treatment as well as possibly increase their risk of adverse events including amputation. The patient was instructed on importance of proper wound care consisting of pressure reduction, and proper maintenance of a moist wound environment. The patient is to cleanse the wound with warm soapy water/peroxide/saline, or betadine BID based on product availability. The patient is to apply ( NEOSPORIN, POLYSPORIN, or TRIPLE OINTMENT, ) Antibiotic to the wound and cover with a DSD as directed. The patient was instructed to change dressings according to orders, or PRN saturation, leaks. The patient was instructed to monitor and report any signs or symptoms of infection or any untoward reactions. Precautions Taken: Offloading/Pressure reduction via rest/ limited activity to essential to daily life only, cane for assisted ambulation, shoe modification, accommodative padding, sharp debridement, and take/apply medication as directed. THE SHORT-TERM GOALS of wound care include, prevent hospitalization, debridement to remove devitalized tissue, minimize risk for soft tissue or bone infection, initiate and promote the wound healing process, and prevent further complication such as loss of limb or life were discussed/reviewed. THE LONG-TERM GOALS of wound care include, complete wound closure if possible, facilitate patient comfort, prevent recurrence, and return the patient to their pre-ulcerative state of activity and lifestyle if possible, Debridement frequency as indicated. Screening/Special Tests: F all Risk Screening: N o falls in the past year F ALLS: Screening for Future Fall Risk Have you had any falls with injury in the past year? N o * Follow Up: a s scheduled * Images: * Sign off status: Completed true * Provider: Renzo Kirk DPM Date: 04/07/2024 Generated for Marie em/Dimitri/Norisranpaual on: 04/12/2024 08:06 AM EST History and Physical Notes * HPI (History of Present Illness) Category Sub-Category Detail Notes Category Not es Skin problems Nature: Open sore Location: Outside, Bottom, Jermaine l/Rearfoot, Left Duration: several days Onset/Cause: unknown Course: worse Aggravated by: any pressure Treatments: none Examination Category Sub-Category Detail Notes Category Not [...] 2, B/L ,SUB MTH (s),4,Right,Plantar, Heel(s), B/L ULCER: LOCATION, Posterior, Lateral,HEEL, LEFT, SIZE, 4mm X 3mm X 2mm, BASE, granular, RIM, hyperkeratotic, UNDERMINING, absent, TRACKING, Full thickness breakdown of skin, DRAINAGE, serosanguineous, mild, NECROTIC TISSUE, loosely-adherent, yellow slough, MALODOR, absent, CALOR, absent, ERYTHEMA, absent, PAIN ON PALPATION, present General Examination GENERAL APPEARANCE: Reveals a pleasant, [...]
--- NOTE | 2025-02-09 08:05 | MHC.PC.OV ---
Vital Signs 02/09/25 08:11 02/09/25 08:36 Height 5 ft 6 in Weight 64.58 kg BMI 23.0 BP 166/88 H 132/86 Respiration 14 Pulse 75 Pulse Source Pulse Oximeter Temp 98.0 F Temp Source Temporal Artery Scan Pulse Oximetry (%) 99 Oxygen Delivery Method Room Air Intake Visit Reasons: Foot issue,asking for referral Petrologist Required: No Accompanied by: Self / Same As Patient Allergies No Known Allergies Allergy (Verified 02/09/25 08:06) Medication List - Last Reconciled 02/09/25 by JILLIAN Mahoney amlodipine 5 mg PO DAILY apixaban (Eliquis) 5 mg PO BID carvedilol 3.125 mg PO BID Tobacco use date assessed: 10/21/24 Dental Screening Dental Screen Date: 06/10/24 HPI HPI Comments History of Present Illness Details The patient is a 74 year old female with a past medical history of hypertension, atrial fibrillation, PAD, CKD, anxiety, COPD presenting for follow up CV: Now following with cardiology, Dr Anderson. On amlodipine 5mg daily, coreg 3.125 bid, eliquis 5 mg twice daily. Has afib with RVR, hypertension hospitalization in 2021. Denies chest pain, palpitations. PAD h/o SFA stent, has follow-up with endovascular this month COPD: no meds Osteoporosis- Taking vitamin D Cigarette smoker- smoking 1ppd. Interested in quitting. Concerns: Has ischemic ulcer of the left heel. Following with [facility]. No infection. Needs foam suspension boot for 30 days but is having difficulty locating this. She has ordered some offloading shoes but no foam. friend endovascular Health maintenance: Due for mammo, ordered Not interested in lung cancer screening Decline colonoscopy, cologuard DEXA scan up-to-date ROS CONSTITUTIONAL: Denies weight loss, fever and chills. HEENT: Denies changes in vision and hearing. RESPIRATORY: Denies SOB and cough. CV: Denies palpitations and CP GI: Denies abdominal pain, nausea, vomiting and diarrhea. : Denies dysuria and urinary frequency. MSK: Denies new myalgia and joint pain. SKIN: Denies rash and pruritus. NEUROLOGICAL: Denies headache PSYCHIATRIC: Denies recent changes in mood. PHYSICAL EXAM: GENERAL: Alert and oriented x 3. NAD EYES: EOMI. Anicteric. HENT: Moist mucous membranes. No scleral icterus. No cervical lymphadenopathy. LUNGS: Clear to auscultation bilaterally. CARDIOVASCULAR: Regular rate, irregularly irregular rhythm. No murmur. No JVD. 2+ pedal pules ABDOMEN: Soft, non-tender +bs EXTREMITIES: No edema. Non-tender. SKIN: No rashes or lesions. Warm. Superficial 8 mm by 3 mm ulceration of the left heel with tenderness to palpation. No drainage. Foot is warm NEUROLOGIC: No focal neurological deficits. CN II-XII grossly intact PSYCHIATRIC: Cooperative. Appropriate mood and affect [facility] Medical History Hypertension Osteoporosis Nicotine dependence, cigarettes, uncomplicated Surgical History (Updated 02/09/25 @ 08:36 by JILLIAN Mahoney) S/P angioplasty with stent Family History Father Lung cancer Alcohol abuse Mother BP (high blood pressure) Social History Housing: House Alcohol intake: current Alcohol intake frequency: does not drink Patient Tobacco Use Status: Current everyday Tobacco user Cigarette Packs Per Day: 1 Cigarettes Per Day: 20 e-Cigarette/Vaping Use: Currently Using service: No Current occupational status: unemployed Cognitive needs: No Hearing needs: No Vision needs: Yes (rx glasses) Questionnaire Thrive Questionnaire Date Thrive assessed: 10/21/24 LESA-7 AMB Questionnaire LESA-7 Date LESA - 7 assessed: 10/21/24 Source: Developed by Drs. Mina Cody, Buffy Davis, Louie Puente and colleagues, with an educational blaine from [employer]. Physical exam (Primary Care) Vital Signs: Last Vital Signs Temp 98.0 F 02/09/25 08:11 Pulse 75 02/09/25 08:11 Resp 14 02/09/25 08:11 BP 166/88 H 02/09/25 08:11 Pulse Ox 99 02/09/25 08:11 Oxygen Delivery Method Room Air 02/09/25 08:11 BMI result Body Mass Index 23.0 Tobacco/Smoking Status: Tobacco use Status Tobacco use date assessed 10/21/24 02/09/25 08:13 Patient Tobacco Use Status Current everyday Tobacco 02/09/25 08:13 e-Cigarette/Vaping Use Currently Using 02/09/25 08:13 Thrive Assessment: Date of Thrive Assessment Date Thrive assessed 10/21/24 02/09/25 08:13 Coding Level of Care Code Est Pt Level 4 (50115) Add On Problem Visit Only Diagnoses Ischemic ulcer of left heel L97.429 Paroxysmal atrial fibrillation I48.0 Atrial fibrillation type: paroxysmal Primary hypertension I10 Hypertension type: primary hypertension Nicotine dependence, cigarettes, uncomplicated F17.210 Diastolic dysfunction I51.89 LVH (left ventricular hypertrophy) I51.7 Assessment & Plan Assessment & Plan (1) Ischemic ulcer of left heel: Code(s): L97.429 - Non-pressure chronic ulcer of left heel and midfoot with unspecified severity Category: Medical Plan: No evidence of infection in the office today. Follow-up with vascular surgery to evaluate for any intervention that might knee needed to this with perfusion and healing of the ulcer. She will also continue following with Podiatry. Recommend locating foam offloading shoe as advised by Podiatry (2) Atrial fibrillation: Comment: Atrial fibrillation, likely persistent. Holter monitor has been completed however results are not available yet. Echocardiogram done 11/09/2024 shows EF 56%, grade 3 diastolic dysfunction, moderate LVH with severe septal and severe basal asymmetric hypertrophy, mild pulmonary hypertension. Pulse is irregular on examination today, clinically in atrial fibrillation. She is on carvedilol for rate control. She is on Eliquis for anticoagulation. Discussed use of Coumadin as a more cost effective approach to anticoagulation and she declines at this time. Code(s): I48.91 - Unspecified atrial fibrillation Category: Medical Qualifiers: Atrial fibrillation type: paroxysmal Qualified Code(s): I48.0 - Paroxysmal atrial fibrillation Plan: Reviewed last Holter monitor echocardiogram. Rate is controlled in the office today. Continue carvedilol for rate control as well as Eliquis for anticoagulation. Continue following with Dr. Anderson in Cardiology. (3) Hypertension: Code(s): I10 - Essential (primary) hypertension Category: Medical Qualifiers: Hypertension type: primary hypertension Qualified Code(s): I10 - Essential (primary) hypertension Plan: Well controlled at this time. Continue carvedilol and amlodipine. (4) Nicotine dependence, cigarettes, uncomplicated: Comment: (current smoker, onset 14yo, 1ppd x 58yrs, 50pyh) Code(s): F17.210 - Nicotine dependence, cigarettes, uncomplicated Category: Medical Plan: Long-term smoker, currently less than 1 pack per day. Tells me that she plans on quitting. Declines lung cancer screening at this time. She has located support groups where she is hopeful will help her quit. (5) Diastolic dysfunction: Code(s): I51.89 - Other ill-defined heart diseases Category: Medical Plan: Grade 3 diastolic dysfunction noted on echocardiogram. She does not appear fluid overloaded on examination. (6) LVH (left ventricular hypertrophy): Code(s): I51.7 - Cardiomegaly Category: Medical Plan: Moderate LVH on echocardiogram. Blood pressure currently well controlled. Plan Follow-up in the office in 4 months. CBC ordered to recheck hemoglobin given polycythemia Orders: Orders Complete Blood Count Auto Diff Today D75.1 - Secondary polycythemia MM tomosynthesis screening BI Today Z12.31 - Encounter for screening mammogram for malignant neoplasm of breast Referrals Vascular Surgery Referral L97.429 - Non-pressure chronic ulcer of left heel and midfoot with unspecified severity Podiatry Referral L97.429 - Non-pressure chronic ulcer of left heel and midfoot with unspecified severity
--- OUTSIDE RECORDS SUMMARY | 2025-02-09 08:06 | XMS_ITS | Patient Health Record ---
Author Organization [facility] Address [address] [address] Care Team Providers Care [place] Tanner Name Role Phone Maximus Rhodes Primary Care Provider Parag Harley Unavailable [phone] Allergies No Known Allergies Reason For Referral No Information Medications Medication SIG (Take, Route, Frequency, Duration) Notes Start Date End Date Status amLODIPine Besylate 5 MG TAKE 1 TABLET B Y MOUTH EVERY DAY Oral twice a day Active Vitamin D Active Heel Lift Convoluted Foam Suspension Boot foam as directed wear topically to protect heel from pressure every day/night; Duration: 30 days 02/04/2025 Active Lisinopril Not-Takin g Ammonium Lactate 12 % 1 application to affected area Externally Twice a day; Duration: 30 days Not-Taking Multivitamin only sometimes Ac tive Eliquis 5 MG 1 tablet Oral Twice a day Active Carvedilol 3.125 MG 1 tablet with food Oral Twice a day Active zzzCompression Stockings 20-30mm Hg . . .; Duration: . 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) Active confirmed Response to treatment, Nonapplicable Vital Signs Blood pressure diastolic 70 mm Hg 02/04/2025 Height 5ft 6in in 02/04/2025 Blood pressure systolic 126 mm Hg 02/04/2025 Weight 143 lbs 02/04/2025 BMI 23.08 kg/m2 02/04/2025 Procedures Procedure Date Ordered Date Performed Result Body Sit e 39091-WRZZQNR NAIL, 6 OR MORE 03/09/2024 N/A 05645-Wbih Destruction, 1-14 03/09/2024 N/A 64729-WUTK SKIN LESIONS, OVER 4 03/09/2024 N/A 23069-OBZKGKX NAIL, 6 OR MORE 06/08/2024 N/A 22923-MJRL SKIN LESIONS, OVER 4 06/08/2024 N/A 86879-APOLATE NAIL, 6 OR MORE 09/14/2024 N/A 33242-RCMD SKIN LESIONS, OVER 4 09/14/2024 N/A 67553-AUCSDEM NAIL, 6 OR MORE 12/10/2024 N/A 45951-DXIJ SKIN LESIONS, OVER 4 12/10/2024 N/A Encounters Encounter Location Date Provider Diagnosis [facility] [address] [place] [address] 03/09/2024 Parag Kirk Atherosclerosis of koi artery of both lower extremities, with unspecified presence of clinical manifestation I70.203 ; Plantar wart B07.0 ; Tinea unguium B35.1 ; Pain in right toe(s) M79.674 ; Pain in left toe(s) M79.675 and Pain in right foot M79.[address] [address] 06/08/2024 Parag Luzunier Atherosclerosis of koi artery of both lower extremities, with unspecified presence of clinical manifestation I70.203 ; Tinea unguium B35.1 ; Pain in right toe(s) M79.674 and Pain in left toe(s) M79.[address] [address] 09/14/2024 Paraggallo LuzYelena Atherosclerosis of koi artery of both lower extremities, with unspecified presence of clinical manifestation I70.203 ; Tinea unguium B35.1 ; Pain in right toe(s) M79.674 and Pain in left toe(s) M79.[address] [address] 12/10/2024 Parag Kirk Atherosclerosis of koi artery of both lower extremities, with unspecified presence of clinical manifestation I70.203 ; Tinea unguium B35.1 ; Pain in right toe(s) M79.674 and Pain in left toe(s) M79.[address] [address] 02/04/2025 Parag Kirk Ischemic ulcer of le ft heel, limited to breakdown of skin L97.[address] [address] 02/03/2025 Parag Kirk [address] [address] 02/03/2025 Parag Kirk [address] [address] 02/04/2025 Parag Kirk [address] [address] 02/07/2025 Parag Kirk [facility] [address] [place] [address] 02/08/2025 Parag Kirk Assessments Encounter Date Diagnosis (ICD Code) Assessment Notes Treatment Notes Treatment Clinical Notes Section Notes 03/09/2024 Plantar wart (ICD-10 - B07.0) 03/09/2024 Atherosclerosis of koi artery of both lower extremities, with unspecified presence of clinical manifestation (ICD-10 - I70.203) 06/08/2024 Tinea unguium (ICD-10 - B35.1) 06/08/2024 Atherosclerosis of koi artery of both lower extremities, with unspecified presence of clinical manifestation (ICD-10 - I70.203) 09/14/2024 Tinea unguium (ICD-10 - B35.1) 09/14/2024 Atherosclerosis of koi artery of both lower extremities, with unspecified presence of clinical manifestation (ICD-10 - I70.203) 12/10/2024 Tinea unguium (ICD-10 - B35.1) 12/10/2024 Atherosclerosis of koi artery of both lower extremities, with unspecified presence of clinical manifestation (ICD-10 - I70.203) 02/04/2025 Ischemic ulcer of left heel, limited to breakdown of skin (ICD-10 - L97.421) Response to treatment, Nonapplicable Patient Educated with: WOUND CARE INSTRUCTIONS. pdf (WOUND CARE INSTRUCTIONS. pdf) 09/14/2024 Pain in right toe(s) (ICD-10 - M79.674) 12/10/2024 Pain in right toe(s) (ICD-10 - M79.674) 06/08/2024 Pain in right toe(s) (ICD-10 - M79.674) 03/09/2024 Tinea unguium (ICD-10 - B35.1) 03/09/2024 Pain in right toe(s) (ICD-10 - M79.674) 06/08/2024 Pain in left toe(s) (ICD-10 - M79.675) 12/10/2024 Pain in left toe(s) (ICD-10 - M79.675) 09/14/2024 Pain in left toe(s) (ICD-10 - M79.675) 03/09/2024 Pain in left toe(s) (ICD-10 - M79.675) 03/09/2024 Pain in right foot (ICD-10 - M79.671) Plan Of Treatment Pending Test Test Name Order Date X ray : Foot, left 3V 11/26/2023 42630-TBZLMAC NAIL, 6 OR MORE 03/09/2024 39824-OHUNZRV NAIL, 6 OR MORE 11/18/2023 33911-SWTVAGB NAIL, 6 OR MORE 06/08/2024 37673-DPSZXBA NAIL, 6 OR MORE 01/14/2023 56588-USQLBVE NAIL, 6 OR MORE 04/01/2023 65666-QRSDBMK NAIL, 6 OR MORE 06/10/2023 00538-UAXICRK NAIL, 6 OR MORE 08/26/2023 93389-MXTOVQM NAIL, 6 OR MORE 12/18/2021 27143-YXFPXIU NAIL, 6 OR MORE 03/05/2022 97276-YFIWHJW NAIL, 6 OR MORE 05/21/2022 96059-WJGLWGM NAIL, 6 OR MORE 08/20/2022 11943-NTZQZHT NAIL, 6 OR MORE 10/01/2022 26197-SHYBPWA NAIL, 6 OR MORE 05/21/2016 54047-KCQLSXW NAIL, 6 OR MORE 07/23/2016 03035-GERDOUO NAIL, 6 OR MORE 10/01/2016 60879-BDKMWJL NAIL, 6 OR MORE 12/10/2016 38505-OLEEMRH NAIL, 6 OR MORE 02/11/2017 23492-SCGPHXP NAIL, 6 OR MORE 04/22/2017 86280-SIRPIGF NAIL, 6 OR MORE 10/07/2017 45232-PAZAIOF NAIL, 6 OR MORE 12/30/2017 39028-UNWZAWR NAIL, 6 OR MORE 03/31/2018 01209-GIYLKFU NAIL, 6 OR MORE 06/30/2018 56143-GAAAHJI NAIL, 6 OR MORE 09/15/2018 66092-ATVSVAG NAIL, 6 OR MORE 12/04/2018 62365-FYUBCAG NAIL, 6 OR MORE 02/12/2019 41934-KPFFXWU NAIL, 6 OR MORE 04/23/2019 29545-KVWRMTR NAIL, 6 OR MORE 07/06/2019 83687-HOUJKGM NAIL, 6 OR MORE 09/28/2021 67875-NSBYFEY NAIL, 6 OR MORE 09/14/2024 66732-NMVEDTR NAIL, 6 OR MORE 12/10/2024 29322-Cbzw Destruction, 03-0909/28/2021 47242-Kdrn Destruction, 03-0907/06/2019 37345-Zgej Destruction, 03-0904/23/2019 37998-Xkrv Destruction, 03-0902/12/2019 31330-Tjnt Destruction, 03-0912/04/2018 28449-Uplx Destruction, 03-0909/15/2018 82002-Xupg Destruction, 03-0906/30/2018 01339-Iham Destruction, 03-0903/31/2018 52650-Piug Destruction, 03-0912/30/2017 30895-Xvqa Destruction, 03-0907/08/2017 53643-Pftv Destruction, 03-0910/07/2017 40923-Gmtu Destruction, 03-0904/22/2017 09794-Uwtr Destruction, 03-0902/11/2017 72949-Ngng Destruction, 03-0903/12/2016 57070-Ujoh Destruction, 03-0912/10/2016 23233-Nhfz Destruction, 03-0910/01/2016 81070-Zkap Destruction, 03-0905/21/2016 28884-Dmdz Destruction, 03-0907/23/2016 48536-Lmel Destruction, 03-0910/01/2022 36025-Nqvd Destruction, 03-0908/20/2022 04564-Tzkc Destruction, 03-0905/21/2022 29512-Cjip Destruction, 03-0903/05/2022 26748-Uxyy Destruction, 03-0912/18/2021 43950-Mnzp Destruction, 03-0908/26/2023 91258-Yyka Destruction, 03-0906/10/2023 70764-Qixq Destruction, 03-0904/01/2023 51514-Slyv Destruction, 03-0901/14/2023 80722-Wsvt Destruction, 03-0911/18/2023 60663-Zfsb Destruction, 03-0903/09/2024 66139-Botmvjeq Plate 05/21/2022 24602-Ldwzlahj Plate 08/20/2022 43589-Hsidkazd Plate 10/01/2022 93188-Gyiqmtjl Plate 12/10/2016 53314-UOVL SKIN LESIONS, OVER 4 09/29/19 66754-KGXV SKIN LESIONS, OVER 4 10/02/19 38599-NACH SKIN LESIONS, OVER 4 08/21/19 43394-KMBE SKIN LESIONS, OVER 4 05/22/19 62352-RLMX SKIN LESIONS, OVER 4 12/19/19 22768-HULA SKIN LESIONS, OVER 4 03/05/19 43071-PXNH SKIN LESIONS, OVER 4 03/09/19 08731-HJCD SKIN LESIONS, OVER 4 11/18/19 38253-UJFW SKIN LESIONS, OVER 4 06/09/19 79027-CLKU SKIN LESIONS, OVER 4 01/15/20 32058-THZE SKIN LESIONS, OVER 4 04/01/19 71211-WLFO SKIN LESIONS, OVER 4 06/10/19 40423-RZIR SKIN LESIONS, OVER 4 08/26/19 53377-GTIQ SKIN LESIONS, OVER 4 12/11/19 35311-XUVP SKIN LESIONS, OVER 4 09/15/19 Next Appt Details Provider Name:Parag Kirk , 04/05/2025 02:45:00 PM, [address] [facility], [place], [address], Insurance Providers Payer Name Payer Address Payer Phone Subscriber Number Group Number Insured Name Patient Relationship to Insured Coverage Start Date Coverage End Date [facility] 63 Medicare Preferred [address] [place] [address] [phone] [id number] Pamela Marr Self - patient is the insured Medical (General) History Medical History History ICD Code Broken bones Chicken pox High blood pressure Measles Kidney disease stage lll Peripheral Artery Disease Hypertensive urgency A Fib Surgical History Surgery Date(Month/Year) Stent L leg 01/2022 Hospitalization History Reason Date(Month/Year) [facility] ER sent by PCP for cardiac Rehab Afib chaning BP 2 days 10/20-
[2025-02-09 08:11] VITALS: BP 166/88; PULSE 75; RESP 14; TEMP 36.7; O2SAT 99; BMI 23.0
[2025-02-09 08:36] VITALS: BP 132/86
== END 2025-02-09 08:43 | disposition home or self-care (01) ==
LOC: HO.HMCHD 08:02
PROVIDERS: PCP Internal Medicine; Visit Provider Physician Assistant
DX: L97.429 Non-pressure chronic ulcer of left heel and midfoot with unspecified severity (principal); I48.0 Paroxysmal atrial fibrillation; I10 Essential (primary) hypertension; F17.210 Nicotine dependence, cigarettes, uncomplicated; I51.89 Other ill-defined heart diseases; I51.7 Cardiomegaly

== ENCOUNTER → 2025-02-09 08:02 | Outpatient (BNVA) | payer MEDICARE, SELFPAY | PROVIDERS: PCP Internal Medicine; Visit Provider Physician Assistant | DX: L97.429 Non-pressure chronic ulcer of left heel and midfoot with unspecified severity (principal); I48.0 Paroxysmal atrial fibrillation; I10 Essential (primary) hypertension; I51.89 Other ill-defined heart diseases; I51.7 Cardiomegaly; F17.210 Nicotine dependence, cigarettes, uncomplicated; Z71.6 Tobacco abuse counseling | CPT/HCPCS: 36415; 85025; 99212 ==

== ENCOUNTER 2025-02-09 08:58 | Outpatient (REF) | payer MEDICARE, SELFPAY ==
[2025-02-09 10:32] LABS: MANUAL DIFF FLAG NO
[2025-02-09 10:57] LABS: Hematocrit 49.9 % (37.0-47.0); Hemoglobin 16.4 g/dl (12.0-16.0); Imm Gran Abs Auto 0.01 X10*3/uL (0.00-0.03); Imm Gran Pct Auto 0.2 % (0.0-0.4); Lymphocytes Absolute Auto 1.0 X10*3/uL (1.2-4.9); Mean Corpuscular HGB Conc 32.9 g/dl (31.0-35.0); Mean Corpuscular Hemoglobin 31.6 pg (27.0-33.0); Mean Corpuscular Volume 96.1 fL (80.0-98.0); NRBC Abs Auto 0.000 X10*3/uL (0.0-0.012); NRBC Pct Auto 0.0 /100WBC (0.0-0.2); Platelet Count 211 X10*3/uL (160-400); Red Blood Count 5.19 X10*6/uL (4.20-5.50); White Blood Count 5.2 X10*3/uL (4.8-10.8)
== END 2025-02-09 08:59 | disposition home or self-care (01) ==
LOC: HO.10HDL 08:58
PROVIDERS: Visit Provider Physician Assistant
DX: D75.1 Secondary polycythemia (principal)
CPT/HCPCS: 36415; 85025